=== PATIENT | female | born 1955 | race Caucasian/White ===

== ENCOUNTER 2019-02-26 01:22 | Emergency (ER) | payer BC, OTHER ==
[~2019-02-26] VITALS: Ht 157.5 cm; Wt 70.8 kg
--- OUTSIDE RECORDS SUMMARY | 2019-02-26 01:25 | XMS REPORT | Continuity of Care Document ---
Author Author [email or web address] Organization [email or web address] Address Unknown Phone Unavailable Care Team Providers Care Internet Researcher Name Role Phone [email or web address] Unavailable Unavailable Problems Problem Status Onset Date Classification Date Reported Comments Source Bronchitis, acute Resolved 08/09/2013 Problem 02/10/2019 2.16.840.1.929564.4.391.11.67020 Screening for breast cancer Resolved 08/09/2013 Problem 02/10/2019 2.16.840.1.824632.4.391.11.62315 Special screening for malignant neoplasms, colon Resolved 08/09/2013 Problem 02/10/2019 2.16.840.1.528439.4.391.11.58916 Laboratory examination Resolved 04/18/2011 Problem 02/10/2019 2.16.840.1.305308.4.391.11.05144 Other B-complex deficiencies Resolved 09/24/2010 Problem 02/10/2019 2.16.840.1.415813.4.391.11.04087 Anemia, iron deficiency Resolved 09/24/2010 Problem 02/10/2019 2.16.840.1.648978.4.391.11.47156 Hyperglycemia Resolved 08/30/2010 Problem 02/10/2019 2.16.840.1.117179.4.391.11.74589 Other thalassemia Resolved 08/30/2010 Problem 02/10/2019 2.16.840.1.452145.4.391.11.10554 Unspecified anemia Resolved 08/30/2010 Problem 02/10/2019 2.16.840.1.884896.4.391.11.24358 Unspecified vitamin D deficiency Resolved 08/30/2010 Problem 02/10/2019 2.16.840.1.909679.4.391.11.71874 Familial hyperlipoproteinemia, type I Resolved 08/16/2010 Problem 02/10/2019 2.16.840.1.805940.4.391.11.26701 Dysthymia Resolved 08/16/2010 Problem 02/10/2019 2.16.840.1.160928.4.391.11.19709 Sinus bradycardia Resolved 06/04/2010 Problem 02/10/2019 2.16.840.1.931207.4.391.11.64411 Other nonspecific abnormal serum enzyme levels Resolved 05/22/2010 Problem 02/10/2019 2.16.840.1.343389.4.391.11.07440 Methicillin resistant Staphylococcus aureus Resolved 05/17/2010 Problem 02/10/2019 2.16.840.1.050606.4.391.11.04148 Extrinsic asthma with status asthmaticus Resolved 05/17/2010 Problem 02/10/2019 2.16.840.1.011893.4.391.11.90661 Chronic pain syndrome Resolved 01/07/2010 Problem 02/10/2019 2.16.840.1.229749.4.391.11.12688 Apudoma of skin Resolved 01/02/2010 Problem 02/10/2019 2.16.840.1.776444.4.391.11.57770 Major depressive disorder, single episode, moderate Resolved 01/02/2010 Problem 02/10/2019 2.16.840.1.710477.4.391.11.63886 Extrinsic asthma, with exacerbation Resolved 12/05/2009 Problem 02/10/2019 2.16.840.1.324695.4.391.11.13505 Acute URI Resolved 12/05/2009 Problem 02/10/2019 2.16.840.1.330898.4.391.11.24424 Pneumonia due to Staphylococcus, unspecified Resolved 10/23/2009 Problem 02/10/2019 2.16.840.1.937620.4.391.11.60825 Other staphylococcus infection in conditions classified elsewhere and of unspecified site Resolved 10/23/2009 Problem 02/10/2019 2.16.840.1.771417.4.391.11.47924 Cellulitis of face Resolved 10/23/2009 Problem 02/10/2019 2.16.840.1.423047.4.391.11.17814 Dyschromia, unspecified Resolved 10/05/2009 Problem 02/10/2019 2.16.840.1.270429.4.391.11.03090 Annual Physical Resolved 10/05/2009 Problem 02/10/2019 2.16.840.1.689718.4.391.11.95668 Postmenopausal related mood disorder Resolved 10/05/2009 Problem 02/10/2019 2.16.840.1.275543.4.391.11.15726 Allergic rhinitis due to pollen Resolved 10/05/2009 Problem 02/10/2019 2.16.840.1.865365.4.391.11.43250 Otogenic pain Resolved 09/21/2009 Problem 02/10/2019 2.16.840.1.269408.4.391.11.02397 Otitis externa of right ear Resolved 09/21/2009 Problem 02/10/2019 2.16.840.1.370545.4.391.11.78338 Arthralgia of hip or thigh Resolved 02/21/2009 Problem 02/10/2019 2.16.840.1.365516.4.391.11.93680 Unspecified labyrinthitis Resolved 01/09/2009 Problem 02/10/2019 2.16.840.1.480926.4.391.11.57827 Light headedness Resolved 01/09/2009 Problem 02/10/2019 2.16.840.1.801918.4.391.11.89039 Eczema Resolved 12/18/2008 Problem 02/10/2019 2.16.840.1.905375.4.391.11.84003 Toe infection Resolved 12/18/2008 Problem 02/10/2019 2.16.840.1.393116.4.391.11.81809 Allergic reaction Resolved 11/22/2008 Problem 02/10/2019 2.16.840.1.335336.4.391.11.93162 Lumbar disc herniation with radiculopathy Resolved 11/16/2008 Problem 02/10/2019 2.16.840.1.661463.4.391.11.92987 Acquired hypothyroidism Resolved 06/22/2008 Problem 02/10/2019 2.16.840.1.145656.4.391.11.28553 Reflux esophagitis Resolved 02/17/2008 Problem 02/10/2019 2.16.840.1.300290.4.391.11.98787 Nonspecific findings on radiological and other examination of lung field Resolved 02/17/2008 Problem 02/10/2019 2.16.840.1.165003.4.391.11.80576 Elevated blood pressure reading without diagnosis of hypertension Resolved 01/19/2008 Problem 02/10/2019 2.16.840.1.639622.4.391.11.63927 Rhomboid muscle pain Resolved 01/19/2008 Problem 02/10/2019 2.16.840.1.757146.4.391.11.52816 Acute shoulder pain Resolved 01/19/2008 Problem 02/10/2019 2.16.840.1.381732.4.391.11.12149 Essential hypertension, benign Resolved 01/19/2008 Problem 02/10/2019 2.16.840.1.240466.4.391.11.33782 Rotator cuff sprain and strain Resolved 12/28/2007 Problem 02/10/2019 2.16.840.1.003980.4.391.11.23296 Lumbar pain Resolved 12/28/2007 Problem 02/10/2019 2.16.840.1.731314.4.391.11.09740 Anxiety as acute reaction to exceptional stress Resolved 08/30/2007 Problem 02/10/2019 2.16.840.1.053906.4.391.11.26126 Syncope and collapse Resolved 08/30/2007 Problem 02/10/2019 2.16.840.1.841636.4.391.11.48322 Swelling, mass, or lump in head and neck Resolved 08/24/2007 Problem 02/10/2019 2.16.840.1.498119.4.391.11.40905 Gastro-esophageal reflux Resolved 08/24/2007 Problem 02/10/2019 2.16.840.1.611867.4.391.11.94295 Enlargement of lymph nodes Resolved 06/17/2007 Problem 02/10/2019 2.16.840.1.051991.4.391.11.10744 Cervical dystonia Resolved 05/07/2007 Problem 02/10/2019 2.16.840.1.249044.4.391.11.03271 Acute maxillary sinusitis Resolved 05/03/2007 Problem 02/10/2019 2.16.840.1.055041.4.391.11.50971 Other specified acquired hypothyroidism Resolved 05/03/2007 Problem 02/10/2019 2.16.840.1.536783.4.391.11.31193 Acute frontal sinusitis Resolved 05/03/2007 Problem 02/10/2019 2.16.840.1.832449.4.391.11.82177 GERARDO Resolved 03/11/2007 Problem 02/10/2019 2.16.840.1.793116.4.391.11.33892 Cervical pain Resolved 03/11/2007 Problem 02/10/2019 2.16.840.1.091497.4.391.11.41909 Transient insomnia Resolved 03/11/2007 Problem 02/10/2019 2.16.840.1.719597.4.391.11.87087 Infective otitis externa Active Problem 02/10/2019 2.16.840.1.753925.4.391.11.42589 Dysfunction of Eustachian tube Active Problem 02/10/2019 2.16.840.1.145170.4.391.11.86001 Spasmodic torticollis Active Problem 02/10/2019 2.16.840.1.740390.4.391.11.02679 Contact blepharoconjunctivitis Active Problem 02/10/2019 2.16.840.1.428313.4.391.11.58160 Prolonged depressive reaction as adjustment reaction Active Problem 02/10/2019 2.16.840.1.049415.4.391.11.25643 Other anxiety states Active Problem 02/10/2019 2.16.840.1.435722.4.391.11.17197 Iron deficiency anemia Active Problem 02/10/2019 2.16.840.1.611513.4.391.11.19670 Neoplasm of uncertain behavior of skin Active Problem 02/10/2019 2.16.840.1.466119.4.391.11.58935 Vitamin D deficiency Active Problem 02/10/2019 2.16.840.1.317728.4.391.11.65205 B12 deficiency Active Problem 02/10/2019 2.16.840.1.905148.4.391.11.62781 Dizziness Active Problem 02/10/2019 2.16.840.1.755738.4.391.11.70824 Blackout Active Problem 02/10/2019 2.16.840.1.716688.4.391.11.55692 Pneumonia due to Staphylococcus Active Problem 02/10/2019 2.16.840.1.314549.4.391.11.63409 Anemia Active Problem 02/10/2019 2.16.840.1.349495.4.391.11.38231 Methicillin resistant Staphylococcus aureus infection Active Problem 02/10/2019 2.16.840.1.255115.4.391.11.72413 Mixed hyperlipidemia Active Problem 02/10/2019 2.16.840.1.525893.4.391.11.11319 Other specified cardiac dysrhythmias Active Problem 02/10/2019 2.16.840.1.994837.4.391.11.54306 Extrinsic asthma with exacerbation Active Problem 02/10/2019 2.16.840.1.883232.4.391.11.87026 Acute hip pain Active Problem 02/10/2019 2.16.840.1.267421.4.391.11.55940 Esophageal reflux Active Problem 02/10/2019 2.16.840.1.013071.4.391.11.85016 Dyschromia Active Problem 02/10/2019 2.16.840.1.177309.4.391.11.23749 Intrinsic asthma with status asthmaticus Active Problem 02/10/2019 2.16.840.1.191468.4.391.11.14632 Nonspecific abnormal serum enzyme levels Active Problem 02/10/2019 2.16.840.1.515836.4.391.11.03540 Abnormal blood chemistry Active Problem 02/10/2019 2.16.840.1.026595.4.391.11.13638 Strain of rotator cuff Active Problem 02/10/2019 2.16.840.1.921231.4.391.11.38054 Allergic state Active Problem 02/10/2019 2.16.840.1.768328.4.391.11.14854 Solitary pulmonary nodule Active Problem 02/10/2019 2.16.840.1.414746.4.391.11.30597 Elevated blood pressure reading Active Problem 02/10/2019 2.16.840.1.344923.4.391.11.92256 Nausea alone Active Problem 02/10/2019 2.16.840.1.080808.4.391.11.56225 Acute cystitis Active Problem 02/10/2019 2.16.840.1.148527.4.391.11.22237 Cough Active Problem 02/10/2019 2.16.840.1.190358.4.391.11.62291 Enlarged lymph nodes Active Problem 02/10/2019 2.16.840.1.635415.4.391.11.00163 Voice disturbance Active Problem 02/10/2019 2.16.840.1.468001.4.391.11.28638 Anxiety Active Diagnosis 02/10/2019 2.16.840.1.963851.4.391.11.42824 Heartburn Active Problem 02/10/2019 2.16.840.1.061103.4.391.11.96118 Dermatitis Active Problem 02/10/2019 2.16.840.1.956700.4.391.11.65943 Displacement of lumbar intervertebral disc Active Problem 02/10/2019 2.16.840.1.324659.4.391.11.53246 Spinal stenosis in cervical region Active Problem 02/10/2019 2.16.840.1.158658.4.391.11.52121 Cervicalgia Active Problem 02/10/2019 2.16.840.1.908789.4.391.11.97535 Headache Active Problem 02/10/2019 2.16.840.1.183088.4.391.11.73472 Earache, otogenic Active Problem 02/10/2019 2.16.840.1.279828.4.391.11.18501 Labyrinthitis Active Problem 02/10/2019 2.16.840.1.772289.4.391.11.96897 Other specified menopausal and postmenopausal disorder Active Problem 02/10/2019 2.16.840.1.297998.4.391.11.45245 Local infection of skin and subcutaneous tissue Active Problem 02/10/2019 2.16.840.1.469826.4.391.11.80470 Cellulitis and abscess of face Active Problem 02/10/2019 2.16.840.1.075236.4.391.11.90707 Myalgia and myositis Active Problem 02/10/2019 2.16.840.1.401532.4.391.11.43060 Hyperchylomicronemia Active Problem 02/10/2019 2.16.840.1.299989.4.391.11.90851 Anxiety and depression Active Problem 02/10/2019 2.16.840.1.078779.4.391.11.31524 Anxiety, generalized Active Problem 02/10/2019 2.16.840.1.476935.4.391.11.46060 Low back pain Active Problem 02/10/2019 2.16.840.1.418092.4.391.11.09197 Vitamin D deficiency Active Diagnosis 02/10/2019 2.16.840.1.480064.4.391.11.23378 Other chronic pain Active Problem 02/10/2019 2.16.840.1.099142.4.391.11.53791 Obesity Active Problem 02/10/2019 2.16.840.1.543037.4.391.11.61237 Mixed hyperlipidemia Active Problem 02/10/2019 2.16.840.1.841967.4.391.11.31764 Hypothyroidism Active Problem 02/10/2019 2.16.840.1.204407.4.391.11.55330 Fibromyalgia Active Problem 02/10/2019 2.16.840.1.983149.4.391.11.08483 Seasonal allergic rhinitis due to pollen Active Problem 02/10/2019 2.16.840.1.184728.4.391.11.84600 Chronic urticaria Active Diagnosis 05/23/2017 2.16.840.1.812318.4.391.11.66490 Hypothyroidism Active Diagnosis 02/10/2019 2.16.840.1.372900.4.391.11.93081 Sinus tachycardia Active Diagnosis 11/17/2018 2.16.840.1.518064.4.391.11.53492 Mild intermittent asthma without complication Active Diagnosis 11/17/2018 2.16.840.1.158834.4.391.11.11375 B12 deficiency Active Diagnosis 02/10/2019 2.16.840.1.970226.4.391.11.58849 Pedal edema Active Diagnosis 02/10/2019 2.16.840.1.697683.4.391.11.88653 Insomnia Active Diagnosis 02/10/2019 2.16.840.1.765497.4.391.11.24363 Depression Active Diagnosis 02/10/2019 2.16.840.1.399412.4.391.11.22719 Generalized pruritus Active Diagnosis 07/17/2018 2.16.840.1.730807.4.391.11.40658 Low back pain Active Diagnosis 02/10/2019 2.16.840.1.546622.4.391.11.04433 Seasonal allergies Active Diagnosis 02/10/2019 2.16.840.1.008425.4.391.11.61839 Pruritic rash Active Diagnosis 02/10/2019 2.16.840.1.397517.4.391.11.36168 Lumbar back pain with radiculopathy affecting left lower extremity Active Diagnosis 02/10/2019 2.16.840.1.819449.4.391.11.56736 Recurrent acute serous otitis media of left ear Active Diagnosis 07/17/2018 2.16.840.1.730196.4.391.11.55433 Cough Active Diagnosis 07/17/2018 2.16.840.1.121956.4.391.11.46217 Hyperglycemia Active Diagnosis 08/14/2016 2.16.840.1.976422.4.391.11.24884 Cervical stenosis of spine Active Diagnosis 08/14/2016 2.16.840.1.738191.4.391.11.63308 Lumbar stenosis Active Diagnosis 08/14/2016 2.16.840.1.483169.4.391.11.34510 Finger pain, right Active Diagnosis 08/07/2016 2.16.840.1.589911.4.391.11.95427 Medications Medication Details Route Status Patient Instructions Ordering Provider Order Date Source [place] 1 tablet as needed for pain Orally Active 10-325 MG Orally every 6 hrs(earliest fill 04-08-2019) [facility] 04/08/2019 2.16.840.1.956915.4.391.11.95948 [place] 1 tablet as needed for pain Orally Active 10-325 MG Orally every 6 hrs(earliest fill 03-08-2019) [facility] 03/08/2019 2.16.840.1.283515.4.391.11.86415 [place] 1 tablet as needed for pain Orally Active 10-325 MG Orally every 6 hrs [facility] 02/07/2019 2.16.840.1.444611.4.391.11.54831 Methocarbamol 1-2 tablets Orally Active 750 MG Orally tid [facility] 02/07/2019 2.16.840.1.025013.4.391.11.58431 [place] 1 tablet Orally Active 10-325 MG Orally every 6 hrs PRN Pain [facility] 11/12/2018 2.16.840.1.082041.4.391.11.59023 HydrOXYzine HCl 1-3 tablet(s) Orally Active 10 mg Orally three times a day (tid) PRN itching [facility] 11/12/2018 2.16.840.1.917150.4.391.11.07952 Methocarbamol 1-2 tablets Orally Active 750 MG Orally tid [facility] 10/18/2018 2.16.840.1.121279.4.391.11.41822 [place] 1 tablet as needed Orally Active 10-325 MG Orally every 6 hrs prn pain( earliest fill 10-07-2018) [facility] 10/07/2018 2.16.840.1.829149.4.391.11.56288 [place] 1 tablet as needed Orally Active 10-325 MG Orally every 6 hrs prn pain( earliest fill 09-09-2018) [facility] 09/09/2018 2.16.840.1.764104.4.391.11.39526 Lidoderm 1 patch to skin remove after 12 hours Externally Active 5 % Externally Once a day [facility] 08/11/2018 2.16.840.1.605193.4.391.11.56857 Medrol (Saurabh) as directed Orally Active 4 mg Orally [facility] 08/11/2018 2.16.840.1.659382.4.391.11.53268 [place] 1 tablet as needed Orally Active 10-325 MG Orally every 6 hrs prn pain [facility] 08/11/2018 2.16.840.1.609809.4.391.11.80004 Tussionex Pennkinetic ER 5 ml as needed Orally Active 10-8 MG/5ML Orally every 12 hrs [facility] 06/18/2018 2.16.840.1.342598.4.391.11.79761 Cefdinir 2 capsules Orally Active 300 MG Orally qd [facility] 06/18/2018 2.16.840.1.535533.4.391.11.92093 [place] 1 tablet as needed Orally Active 10-325 MG Orally every 6 hrs( earliest fill date 12-17-2017) [facility] 12/17/2017 2.16.840.1.756546.4.391.11.36370 [place] 1 tablet as needed Orally Active 10-325 MG Orally every 6 hrs( earliest fill date 11-17-2017) [facility] 11/17/2017 2.16.840.1.713159.4.391.11.05429 [place] 1 tablet as needed Orally Active 10-325 MG Orally every 6 hrs [facility] 10/19/2017 2.16.840.1.582853.4.391.11.66118 Atenolol 1 tablet Orally Active 25 MG Orally twice a day (bid) [facility] 10/19/2017 2.16.840.1.787245.4.391.11.66330 Lorazepam 1 tablet Orally Active 1 MG Orally three times a day (tid) [facility] 10/19/2017 2.16.840.1.604536.4.391.11.20606 [place] 1 tablet as needed Orally Active 10-325 MG Orally every 6 hrs( earliest fill date 09-20-2017) [facility] 09/20/2017 2.16.840.1.268055.4.391.11.02132 [place] 1 tablet as needed Orally Active 10-325 MG Orally every 6 hrs( earliest fill date 08-20-2017) [facility] 08/20/2017 2.16.840.1.038780.4.391.11.44765 [place] 1 tablet as needed Orally Active 10-325 MG Orally every 6 hrs [facility] 07/22/2017 2.16.840.1.588001.4.391.11.47770 Clonazepam 1/2 - 1 tablet Orally Active 1 MG Orally three times a day (tid) as needed (prn) [facility] 07/22/2017 2.16.840.1.830966.4.391.11.95117 [place] 1 tablet as needed Orally Active 10-325 MG Orally every 6 hrs [facility] 06/13/2017 2.16.840.1.793317.4.391.11.62883 [place] 1 tablet as needed Orally Active 10-325 MG Orally every 6 hrs [facility] 05/13/2017 2.16.840.1.404265.4.391.11.79157 METHYLCOBALAMIN (B12) 1mL IM Active 1,000mcg/mL IM qweekly [facility] 04/22/2017 2.16.840.1.997777.4.391.11.93160 25G 1" Needle as directed NA Active [facility] 04/22/2017 2.16.840.1.193402.4.391.11.28549 3mL Luer-Lock Syringe as directed NA Active [facility] 04/22/2017 2.16.840.1.379193.4.391.11.33972 Vitamin D (Ergocalciferol) 1 capsule Orally Active 11319 UNIT Orally twice per week [facility] 04/15/2017 2.16.840.1.090388.4.391.11.47605 [place] Thyroid 1 tablet Orally Active 120 MG Orally Once a day [facility] 04/15/2017 2.16.840.1.633742.4.391.11.80598 Vitamin D2 1 capsule by mouth once a week by mouth Active 50,000 by mouth once a week [facility] 04/15/2017 2.16.840.1.123335.4.391.11.04548 [place] 1 tablet as needed Orally Active 10-325 MG Orally every 6 hrs [facility] 04/15/2017 2.16.840.1.332492.4.391.11.87933 [place] Thyroid 1 tablet Orally Active 90 MG Orally Once a day [facility] 01/09/2017 2.16.840.1.282689.4.391.11.00614 [place] Thyroid 1 tablet Orally Active 90 MG Orally Once a day [facility] 01/09/2017 2.16.840.1.177239.4.391.11.27632 Furosemide 1 tablet Orally Active 20 MG Orally qam prn severe pedal edema [facility] 01/09/2017 2.16.840.1.959597.4.391.11.18341 Ambien CR 1 tablet at bedtime as needed Orally Active 12.5 MG Orally Once a day [facility] 01/09/2017 2.16.840.1.542139.4.391.11.23993 Xyzal 1 tablet in the evening Orally Active 5 MG Orally Once a day [facility] 09/26/2016 2.16.840.1.532766.4.391.11.79077 Micro-K 1 capsule Orally Active 10 MEQ Orally once a day [facility] 09/09/2016 2.16.840.1.893320.4.391.11.55074 [place] Thyroid 1 tablet Orally Active 90 MG Orally Once a day [facility] 08/13/2016 2.16.840.1.755011.4.391.11.70468 BuPROPion HCl (XL) 1 tablet in the morning Orally Active 150 MG Orally Once a day x 4 days [facility] 06/11/2016 2.16.840.1.237447.4.391.11.57771 BuPROPion HCl (XL) 1 tablet in the morning Orally Active 300 MG Orally Once a day [facility] 06/11/2016 2.16.840.1.523798.4.391.11.40693 HydrOXYzine HCl 1-3 tablets tid prn itching Orally Active 10 MG Orally as directed [facility] 06/11/2016 2.16.840.1.743355.4.391.11.64741 ProAir HFA 1-2 puffs as needed Inhalation Active 108 (90 Base) MCG/ACT Inhalation every 4 hrs [facility] 06/11/2016 2.16.840.1.584441.4.391.11.58824 Citalopram Hydrobromide 1 tablet Orally Active 20 MG Orally Once a day [facility] 06/11/2016 2.16.840.1.420120.4.391.11.72656 Albuterol Sulfate 3 ml Inhalation Active (2.5 MG/3ML) 0.083% Inhalation Three times a day prn [facility] 06/11/2016 2.16.840.1.807375.4.391.11.87356 Xyzal 1 tablet in the evening Orally Active 5 MG Orally Once a day [facility] 03/12/2016 2.16.840.1.918486.4.391.11.66548 Singulair 1 tablet in the evening Orally Active 10 mg Orally Once a day [facility] 12/07/2015 2.16.840.1.150272.4.391.11.56514 Soma 1 tablet by mouth Active 350 MG by mouth TID [facility] 11/22/2015 2.16.840.1.360184.4.391.11.31616 Vitamin D2 1 capsule by mouth once a week by mouth Active 50,000 by mouth once a week [facility] 11/22/2015 2.16.840.1.593657.4.391.11.46093 [place] 1 tablet by mouth Active 10-325 MG by mouth every 6 hrs prn [facility] 11/22/2015 2.16.840.1.170796.4.391.11.62896 Tramadol HCl 1 tablet Orally Active 50 mg Orally every 6 hrs prn pain [facility] 11/22/2015 2.16.840.1.973354.4.391.11.99492 BusPIRone HCl 1/2 half tablet Orally Active 15 MG Orally Twice a day for 1 week and the 1 tablet twice a day [facility] 08/24/2015 2.16.840.1.799895.4.391.11.99782 HydrOXYzine HCl 1 tablet Orally Active 10 mg Orally three times a day (tid) prn itching [facility] 06/01/2015 2.16.840.1.439710.4.391.11.57258 [place] Thyroid 1 tablet on an empty stomach Orally No Longer Active 15 MG Orally Once a day [facility] 05/30/2015 2.16.840.1.789746.4.391.11.32846 Hydrochlorothiazide 1 tablet Orally Active 25 MG Orally Once a day in the morning [facility] 05/18/2015 2.16.840.1.893768.4.391.11.42328 Vitamin B12 Unknown NA Inactive 1,000mcg/1ml Injection [facility] 10/07/2013 2.16.840.1.275771.4.391.11.97694 Syringe IM injection of Vit B12, once per week NA Active 3cc syringe with 23g needle, 1" [facility] 07/16/2012 2.16.840.1.036064.4.391.11.17990 [place] Take 1 tablet(s) by mouth q6h prn NA Active 10mg/325mg Tablet [facility] Antonia Da Silva 05/03/2009 2.16.840.1.008933.4.391.11.65184 Soma Take 1 tablet(s) by mouth tid NA Active 350mg Tablet Maria Antonia Da Silva 04/06/2009 2.16.840.1.594280.4.391.11.73662 Ativan 1/2 to 1 tablet by mouth Active 1 MG by mouth three times a day (tid) as needed (prn) [facility] 2.16.840.1.563444.4.391.11.41216 Citalopram Hydrobromide 1 tablet Orally Active 20 MG Orally Once a day [facility] 2.16.840.1.900871.4.391.11.62324 Tramadol HCl 1 tablet Orally Active 50 mg Orally every 6 hrs prn pain [facility] [id number] [place]wick 1 tablet by mouth Active 10-325 MG by mouth every 6 hrs prn [facility] [id number] Albuterol Sulfate 3 ml Inhalation Active (2.5 MG/3ML) 0.083% Inhalation Three times a day prn [facility] [id number] Micro-K 1 capsule Orally Active 10 MEQ Orally once a day [facility] [id number] Hydrochlorothiazide 1 tablet Orally Active 25 MG Orally Once a day in the morning [facility] [id number] Singulair 1 tablet in the evening Orally Active 10 mg Orally Once a day [facility] [id number] Soma Take 1 tablet(s) by mouth tid NA Active 350mg Tablet [facility] [id number] Vitamin D2 1 capsule by mouth once a week by mouth Active 50,000 by mouth once a week [facility] [id number] ProAir HFA 1-2 puffs as needed Inhalation Active 108 (90 Base) MCG/ACT Inhalation every 4 hrs [facility] [id number] Syringe IM injection of Vit B12, once per week NA Active 3cc syringe with 23g needle, 1 [facility] [place] [id number] Cyanocobalamin 1 ml intramuscularly Active 1000 MCG/ML intramuscularly once a week as directed [place] [id number] Simvastatin 1 tablet by mouth Active 20 mg by mouth at bedtime [address]1.665931.4.391.11.93025 BuPROPion HCl (XL) 1 tablet in the morning Orally Active 300 MG Orally Once a day [place] 21642.840.1.488894.4.391.11.68289 Ambien CR 1 tablet at bedtime as needed Orally Active 6.25 MG Orally Once a day [place] 21642.840.1.188633.4.391.11.68950 HydrOXYzine HCl 1-3 tablets tid prn itching Orally Active 10 MG Orally as directed [place] [address].840.1.891834.4.391.11.66698 Atenolol 1 tablet by mouth Active 50 mg by mouth qam and 1/2 po qpm [address]1.558210.4.391.11.12934 Amitriptyline HCl 1 to 2 tablet(s) by mouth Active 25 MG by mouth at bedtime [address]16840.1.998310.4.391.11.81280 Furosemide 1 tablet Orally Active 20 MG Orally qam prn severe pedal edema [address]16840.1.843909.4.391.11.71989 Micro-K 1 capsule Orally Active 10 MEQ Orally once a day [place] 87984.1.827377.4.391.11.37050 [place] Thyroid 1 tablet Orally Active 90 MG Orally Once a day [facility] 2.16840.1.228497.4.391.11.34368 Cyanocobalamin 1 ml intramuscularly Active 1000 MCG/ML intramuscularly once a week as directed [facility] 2.16840.1.270631.4.391.11.93305 Albuterol Sulfate 3 ml Inhalation Active (2.5 MG/3ML) 0.083% Inhalation Three times a day prn [facility] 2.16840.1.247799.4.391.11.43284 BuPROPion HCl (XL) 1 tablet in the morning Orally Active 300 MG Orally Once a day [facility] 2.16840.1.220957.4.391.11.71921 Ambien CR 1 tablet at bedtime as needed Orally Active 12.5 MG Orally Once a day [facility] 2.16840.1.382850.4.391.11.61059 HydrOXYzine HCl 1-3 tablets tid prn itching Orally Active 10 mg Orally as directed [facility] 2.16840.1.190458.4.391.11.25569 Citalopram Hydrobromide 1 tablet Orally Active 20 MG Orally Once a day [facility] 2.16840.1.966685.4.391.11.81041 ProAir HFA 1-2 puffs as needed Inhalation Active 108 (90 Base) MCG/ACT Inhalation every 4 hrs [facility] 2.16840.1.505752.4.391.11.38051 Atenolol 1 tablet by mouth Active 50 mg by mouth qam and 1/2 po qpm [facility] 2.16840.1.552068.4.391.11.85622 Tramadol HCl 1 tablet Orally Active 50 mg Orally every 6 hrs prn pain [facility] 2.16840.1.960404.4.391.11.77892 Ativan 1/2 to 1 tablet by mouth Active 1 MG by mouth three times a day (tid) as needed (prn) [facility] 2.16.840.1.876158.4.391.11.77870 Hydrochlorothiazide 1 tablet Orally Active 25 MG Orally Once a day in the morning [facility] 2.16.840.1.226920.4.391.11.21304 [place] 1 tablet by mouth Active 10-325 MG by mouth every 6 hrs prn [facility] 2.16.840.1.638234.4.391.11.23663 Singulair 1 tablet in the evening Orally Active 10 mg Orally Once a day [facility] 2.16.840.1.519721.4.391.11.72631 Amitriptyline HCl 1 to 2 tablet(s) by mouth Active 25 MG by mouth at bedtime [facility] 2.16.840.1.639099.4.391.11.20092 Simvastatin 1 tablet by mouth Active 20 mg by mouth at bedtime [facility] 2.16.840.1.452071.4.391.11.54622 [place] Thyroid 1 tablet Orally Active 90 MG Orally Once a day [facility] 2.16.840.1.197943.4.391.11.91190 3mL Luer-Lock Syringe as directed NA Active [facility] 2.16840.1.130452.4.391.11.78568 Clonazepam 1 tablet Orally Active 1 MG Orally three times a day (tid) as needed (prn) [facility] 2.16.840.1.924332.4.391.11.22995 METHYLCOBALAMIN (B12) 1mL IM Active 1,000mcg/mL IM qweekly [facility] 2.16.840.1.251235.4.391.11.45955 25G 1" Needle as directed NA Active [facility] 2.16.840.1.860933.4.391.11.35751 Citalopram Hydrobromide 1 tablet Orally Active 40 MG Orally Once a day [facility] 2.16840.1.900699.4.391.11.66113 Vitamin D (Ergocalciferol) 1 capsule Orally Active 85699 UNIT Orally twice per week [facility] 2.16840.1.102541.4.391.11.63086 [place] Thyroid 1 tablet Orally Active 120 MG Orally Once a day [facility] 2.16840.1.642489.4.391.11.52988 Medrol (Saurabh) as directed Orally Active 4 mg Orally [facility] [place] 2.16840.1.850589.4.391.1116506 Atenolol 1 tablet Orally Active 25 MG Orally twice a day (bid) [facility] 2.16840.1.294190.4.391.11.71956 Lorazepam 1 tablet Orally Active 1 MG Orally three times a day (tid) [facility] 2.16840.1.171023.4.391.11.77641 ProAir HFA 1 - 2 puffs Inhalation Active 108 (90 Base) MCG/ACT Inhalation q 4-6 hr prn wheezing/SOB/cough [facility] 2.16840.1.827565.4.391.11.70912 Citalopram Hydrobromide 1 tablet by mouth No Longer Active 40 mg by mouth daily [facility] 2.16840.1.160949.4.391.11.30881 Albuterol Sulfate 1 vial(s) Inhalation Active (2.5 MG/3ML) 0.083% Inhalation by nebulizer qid as directed [facility] 2.16840.1.329254.4.391.11.15523 BusPIRone HCl 1/2 half tablet Orally No Longer Active 15 MG Orally Twice a day for 1 week and the 1 tablet twice a day [facility] 2.16.840.1.212041.4.391.1107524 [place] Thyroid 1 tablet Orally No Longer Active 60 MG Orally Once a day [facility] 2.16840.1.752188.4.391.11.42100 Soma Take 1 tablet(s) by mouth tid NA Active 350mg Tablet [facility] 2.16840.1.397541.4.391.11.08128 Allergies, Adverse Reactions, Alerts Substance Category Reaction Severity Reaction type Status Date Reported Comments Source Ibuprofen Adverse Reaction Info Not Available Adverse Reaction Active 02/07/2019 2.16.840.1.888089.4.391.11.48251 Diflunisal Adverse Reaction Info Not Available Adverse Reaction Active 02/07/2019 2.16.840.1.330895.4.391.11.25057 Bystolic Adverse Reaction Info Not Available Adverse Reaction Active 02/07/2019 2.16.840.1.587146.4.391.11.95299 Immunizations Immunization Date Given Site Status Last Updated Comments Source FLUVIRIN - Influenza (split) 06/11/2016 completed 2.16.840.1.598405.4.391.11.69880 Triamcinolone 06/11/2016 completed 2.16.840.1.913612.4.391.11.39035 Inj. Dexamethasone Sod Phos 1mg 03/12/2016 completed 2.16.840.1.357781.4.391.11.35930 Inj. Dexamethasone Sod Phos 1mg 12/07/2015 completed 2.16.840.1.151324.4.391.11.35328 Results No Data Provided for This Section Pathology Reports No Data Provided for This Section Diagnostic Reports No Data Provided for This Section Consultation Notes No Data Provided for This Section Discharge Summaries No Data Provided for This Section History and Physicals No Data Provided for This Section Vital Signs Vital Sign Value Date Comments Source Weight 162 02/07/2019 2.16.840.1.893785.4.391.11.10072 Height 63 02/07/2019 2.16.840.1.221559.4.391.11.43348 Temperature Oral (F) 97.9 F 02/07/2019 2.16.840.1.760219.4.391.11.94532 Heart Rate 124 02/07/2019 2.16.840.1.858646.4.391.11.52089 Weight 159.4 11/12/2018 2.16.840.1.582049.4.391.11.35150 Height 63 11/12/2018 2.16.840.1.752225.4.391.11.37367 Temperature Oral (F) 96.8 F 11/12/2018 2.16.840.1.254119.4.391.11.04154 Heart Rate 118 11/12/2018 2.16.840.1.844332.4.391.11.71007 Weight 155 08/11/2018 2.16.840.1.024263.4.391.11.45627 Height 63 08/11/2018 2.16.840.1.243480.4.391.11.44259 Temperature Oral (F) 98.5 F 08/11/2018 2.16.840.1.422726.4.391.11.12160 Heart Rate 113 08/11/2018 2.16.840.1.660376.4.391.11.25012 Weight 152 06/18/2018 2.16.840.1.259974.4.391.11.03166 Height 63 06/18/2018 2.16.840.1.468334.4.391.11.52298 Temperature Oral (F) 97.9 F 06/18/2018 2.16.840.1.900418.4.391.11.48727 Heart Rate 102 06/18/2018 2.16.840.1.786200.4.391.11.59569 Weight 146.8 05/05/2018 2.16.840.1.416260.4.391.11.49728 Height 63 05/05/2018 2.16.840.1.430315.4.391.11.43658 Temperature Oral (F) 97.0 F 05/05/2018 2.16.840.1.224179.4.391.11.10396 Heart Rate 84 05/05/2018 2.16.840.1.723145.4.391.11.30786 Weight 145 01/29/2018 2.16.840.1.256172.4.391.11.03554 Height 63 01/29/2018 2.16.840.1.648433.4.391.11.72666 Temperature Oral (F) 99.1 F 01/29/2018 2.16.840.1.597004.4.391.11.93460 Heart Rate 80 01/29/2018 2.16.840.1.185502.4.391.11.12034 Weight 140 12/30/2017 2.16.840.1.562863.4.391.11.08977 Height 63 12/30/2017 2.16.840.1.326564.4.391.11.21776 Temperature Oral (F) 98.4 F 12/30/2017 2.16.840.1.804934.4.391.11.49309 Heart Rate 83 12/30/2017 2.16.840.1.239549.4.391.11.26707 Weight 149 10/19/2017 2.16.840.1.033654.4.391.11.09965 Height 63 10/19/2017 2.16.840.1.215201.4.391.11.47033 Temperature Oral (F) 97.8 F 10/19/2017 2.16.840.1.561299.4.391.11.55734 Heart Rate 68 10/19/2017 2.16.840.1.195431.4.391.11.04440 Weight 159 07/22/2017 2.16.840.1.502191.4.391.11.94546 Height 63 07/22/2017 2.16.840.1.415962.4.391.11.23791 Temperature Oral (F) 98.5 F 07/22/2017 2.16.840.1.604703.4.391.11.28765 Heart Rate 80 07/22/2017 2.16.840.1.590084.4.391.11.58093 Weight 180 04/15/2017 2.16.840.1.316764.4.391.11.33059 Height 63 04/15/2017 2.16.840.1.376756.4.391.11.59294 Temperature Oral (F) 97.5 F 04/15/2017 2.16.840.1.704784.4.391.11.63609 Heart Rate 84 04/15/2017 2.16.840.1.393474.4.391.11.18100 Weight 200 01/09/2017 2.16.840.1.942116.4.391.11.61533 Height 63 01/09/2017 2.16.840.1.251999.4.391.11.66602 Temperature Oral (F) 97.5 F 01/09/2017 2.16.840.1.232299.4.391.11.73803 Heart Rate 75 01/09/2017 2.16.840.1.448823.4.391.11.68927 Weight 202 09/26/2016 2.16.840.1.367342.4.391.11.75426 Height 63 09/26/2016 2.16.840.1.145341.4.391.11.15028 Temperature Oral (F) 97.5 F 09/26/2016 2.16.840.1.602627.4.391.11.97379 Heart Rate 72 09/26/2016 2.16.840.1.559178.4.391.11.33774 Weight 199 06/11/2016 2.16.840.1.916527.4.391.11.64420 Height 63 06/11/2016 2.16.840.1.598197.4.391.11.45439 Temperature Oral (F) 99.3 F 06/11/2016 2.16.840.1.312071.4.391.11.18028 Heart Rate 79 06/11/2016 2.16.840.1.277471.4.391.11.57157 Weight 197 03/12/2016 2.16.840.1.027132.4.391.11.20458 Height 63 03/12/2016 2.16.840.1.297205.4.391.11.75288 Temperature Oral (F) 98.0 F 03/12/2016 2.16.840.1.347410.4.391.11.96458 Heart Rate 79 03/12/2016 2.16.840.1.469651.4.391.11.16543 Weight 198 12/07/2015 2.16.840.1.864267.4.391.11.35820 Height 63 12/07/2015 2.16.840.1.254049.4.391.11.99573 Temperature Oral (F) 98.0 F 12/07/2015 2.16.840.1.496825.4.391.11.11956 Heart Rate 80 12/07/2015 2.16.840.1.707777.4.391.11.77316 Encounters Location Location Details Encounter Type Encounter Number Reason For Visit Attending Provider ADM Date DC Date Status Source Juventino Be MD [facility] Medication Refil [id number] 12/07/2015 12/07/2015 2.16.840.1.385602.4.391.11.20929 Juventino Be MD [facility] Medication Refil [id number] 12/07/2015 12/07/2015 2.16.840.1.984905.4.391.11.63121 Juventino Be MD [facility] Medication Refil [id number] 12/07/2015 12/07/2015 2.16.840.1.098419.4.391.11.66551 Juventino Be MD [facility] Medication Refil [id number] 12/07/2015 12/07/2015 2.16.840.1.712707.4.391.11.65732 Juventino Be MD [facility] Medication Refil [id number] 12/07/2015 12/07/2015 2.16.840.1.511287.4.391.11.03636 Juventino Be MD [facility] Medication Refil [id number] 12/07/2015 12/07/2015 2.16.840.1.803284.4.391.11.37565 Juventino Be MD [facility] Medication Refil [id number] 12/07/2015 12/07/2015 2.16.840.1.626297.4.391.11.51127 Juventino Be MD [facility] Medication Refil [id number] 12/07/2015 12/07/2015 2.16.840.1.144361.4.391.11.16146 Juventino Be MD [facility] Medication Refil [id number] 12/07/2015 12/07/2015 2.16.840.1.047046.4.391.11.90321 Juventino Be MD [facility] Medication Refil [id number] 12/07/2015 12/07/2015 2.16.840.1.138852.4.391.11.53333 Juventino Be MD [facility] Soma prescription [id number] 12/10/2015 12/10/2015 2.16.840.1.972810.4.391.11.64440 Juventino Be MD [facility] [place] prescription [id number] 12/10/2015 12/10/2015 2.16.840.1.891354.4.391.11.03566 Juventino Be MD [facility] [place] prescription [id number] 12/10/2015 12/10/2015 2.16.840.1.708466.4.391.11.79044 Juventino Be MD [facility] [place] prescription [id number] 12/10/2015 12/10/2015 2.16.840.1.740296.4.391.11.49894 Juventino Be MD [facility] [place] prescription [id number] 12/10/2015 12/10/2015 2.16.840.1.496450.4.391.11.53130 Juventino Be MD [facility] [place] prescription [id number] 12/10/2015 12/10/2015 2.16.840.1.543167.4.391.11.64419 Juventino Be MD [facility] [place] prescription [id number] 12/10/2015 12/10/2015 2.16.840.1.541150.4.391.11.29484 Juventino Be MD [facility] [place] prescription [id number] 12/10/2015 12/10/2015 2.16.840.1.057163.4.391.11.43400 Juventino Be MD [facility] [place] prescription [id number] 12/10/2015 12/10/2015 2.16.840.1.873367.4.391.11.76372 Juventino Be MD [facility] [place] prescription [id number] 12/10/2015 12/10/2015 2.16.840.1.455601.4.391.11.05190 Juventino Be MD [facility] [place] prescription [id number] 12/10/2015 12/10/2015 2.16.840.1.419378.4.391.11.53487 Juventino Be MD [facility] [place] prescription [id number] 12/10/2015 12/10/2015 2.16.840.1.619339.4.391.11.09855 Juventino Be MD [facility] [place] prescription [id number] 12/10/2015 12/10/2015 2.16.840.1.691115.4.391.11.68048 Juventino Be MD [facility] Clinical Advice During Business Hours [id number] 01/08/2016 01/08/2016 2.16.840.1.451993.4.391.11.24985 Juventino Be MD [facility] Clinical Advice During Business Hours [id number] 01/08/2016 01/08/2016 2.16.840.1.671320.4.391.11.00080 Juventino Be MD [facility] Clinical Advice During Business Hours [id number] 01/08/2016 01/08/2016 2.16.840.1.397174.4.391.11.60931 Juventino Be MD [facility] Clinical Advice During Business Hours [id number] 01/08/2016 01/08/2016 2.16.840.1.929519.4.391.11.99598 Juventino Be MD [facility] Clinical Advice During Business Hours [id number] 01/08/2016 01/08/2016 2.16.840.1.247341.4.391.11.84766 Juventino Be MD [facility] Clinical Advice During Business Hours [id number] 01/08/2016 01/08/2016 2.16.840.1.852127.4.391.11.77994 Juventino Be MD [facility] Clinical Advice During Business Hours [id number] 01/08/2016 01/08/2016 2.16.840.1.787006.4.391.11.15400 Juventino Be MD [facility] Clinical Advice During Business Hours [id number] 01/08/2016 01/08/2016 2.16.840.1.986740.4.391.11.51536 Juventino Be MD [facility] Clinical Advice During Business Hours [id number] 01/08/2016 01/08/2016 2.16.840.1.913309.4.391.11.55218 Juventino Be MD [facility] Clinical Advice During Business Hours [id number] 01/08/2016 01/08/2016 2.16.840.1.230013.4.391.11.57211 Juventino Be MD [facility] Clinical Advice During Business Hours [id number] 01/08/2016 01/08/2016 2.16.840.1.083617.4.391.11.93971 Juventino Be MD [facility] Clinical Advice During Business Hours [id number] 01/08/2016 01/08/2016 2.16.840.1.161406.4.391.11.49328 Juventino Be MD [facility] Medicine Refills [id number] 02/07/2016 02/07/2016 2.16.840.1.113114.4.391.11.28633 Juventino Be MD [facility] Medicine Refills [id number] 02/07/2016 02/07/2016 2.16.840.1.721052.4.391.11.80465 Juventino Be MD [facility] Medicine Refills [id number] 02/07/2016 02/07/2016 2.16.840.1.680541.4.391.11.64317 Juventino Be MD [facility] Medicine Refills [id number] 02/07/2016 02/07/2016 2.16.840.1.478372.4.391.11.49325 Juventino Be MD [facility] Medicine Refills [id number] 02/07/2016 02/07/2016 2.16.840.1.104313.4.391.11.46357 Juventino Be MD [facility] Medicine Refills [id number] 02/07/2016 02/07/2016 2.16.840.1.792469.4.391.11.72080 Juventino Be MD [facility] Medicine Refills [id number] 02/07/2016 02/07/2016 2.16.840.1.563265.4.391.11.79442 Juventino Be MD [facility] Medicine Refills [id number] 02/07/2016 02/07/2016 2.16.840.1.879834.4.391.11.87178 Juventino Be MD [facility] Medicine Refills [id number] 02/07/2016 02/07/2016 2.16.840.1.956562.4.391.11.94918 Juventino Be MD [facility] Medicine Refills [id number] 02/07/2016 02/07/2016 2.16.840.1.926729.4.391.11.35821 Juventino Be MD [facility] Medicine Refills [id number] 02/07/2016 02/07/2016 2.16.840.1.031753.4.391.11.31776 Juventino Be MD [facility] Medication Refil [id number] 03/12/2016 03/12/2016 2.16.840.1.053843.4.391.11.28977 Juventino Be MD [facility] Medication Refil [id number] 03/12/2016 03/12/2016 2.16.840.1.190394.4.391.11.23992 Juventino Be MD [facility] Medication Refil [id number] 03/12/2016 03/12/2016 2.16.840.1.003978.4.391.11.46830 Juventino Be MD [facility] Medication Refil [id number] 03/12/2016 03/12/2016 2.16.840.1.458219.4.391.11.37070 Juventino Be MD [facility] Medication Refil [id number] 03/12/2016 03/12/2016 2.16.840.1.472003.4.391.11.83666 Juventino Be MD [facility] Medication Refil [id number] 03/12/2016 03/12/2016 2.16.840.1.527582.4.391.11.13513 Juventino Be MD [facility] Medication Refil [id number] 03/12/2016 03/12/2016 2.16.840.1.606074.4.391.11.19316 Juventino Be MD [facility] Medicine Refills [id number] 04/11/2016 04/11/2016 2.16.840.1.443273.4.391.11.59604 Juventino Be MD [facility] Medicine Refills [id number] 04/11/2016 04/11/2016 2.16.840.1.809229.4.391.11.30191 Juventino Be MD [facility] Medicine Refills [id number] 04/11/2016 04/11/2016 2.16.840.1.140558.4.391.11.72015 Juventino Be MD [facility] Medicine Refills [id number] 04/11/2016 04/11/2016 2.16.840.1.887912.4.391.11.64134 Juventino Be MD [facility] Medicine Refills [id number] 04/11/2016 04/11/2016 2.16.840.1.547233.4.391.11.33119 Juventino Be MD [facility] Medicine Refills [id number] 04/11/2016 04/11/2016 2.16.840.1.639892.4.391.11.43050 Juventino Be MD [facility] Medicine Refills [id number] 04/11/2016 04/11/2016 2.16.840.1.559089.4.391.11.69544 Juventino Be MD [facility] Medicine Refills [id number] 04/11/2016 04/11/2016 2.16.840.1.179132.4.391.11.50013 Juventino Be MD [facility] Medicine Refills [id number] 04/11/2016 04/11/2016 2.16.840.1.781147.4.391.11.46593 Juventino Be MD [facility] Medicine Refills [id number] 05/09/2016 05/09/2016 2.16.840.1.080577.4.391.11.63044 Juventino Be MD [facility] Medicine Refills [id number] 05/09/2016 05/09/2016 2.16.840.1.882363.4.391.11.27606 Juventino Be MD [facility] Medicine Refills [id number] 05/09/2016 05/09/2016 2.16.840.1.482004.4.391.11.76846 Juventino Be MD [facility] Medicine Refills [id number] 05/09/2016 05/09/2016 2.16.840.1.965825.4.391.11.70758 Juventino Be MD [facility] Medicine Refills [id number] 05/09/2016 05/09/2016 2.16.840.1.224263.4.391.11.40170 Juventino Be MD [facility] Medicine Refills [id number] 05/09/2016 05/09/2016 2.16.840.1.477001.4.391.11.93477 Juventino Be MD [facility] Medicine Refills [id number]-[id number] 05/09/2016 05/09/2016 2.16.840.1.712283.4.391.11.86985 Juventino Be MD [facility] Medicine Refills [id number] 05/09/2016 05/09/2016 2.16.840.1.854602.4.391.11.83604 Juventino Be MD [facility] Medication Refil [id number] 06/11/2016 06/11/2016 2.16.840.1.260387.4.391.11.09269 Juventino Be MD [facility] Medication Refil [id number] 06/11/2016 06/11/2016 2.16.840.1.508361.4.391.11.16592 Juventino Be MD [facility] Medication Refil [id number] 06/11/2016 06/11/2016 2.16.840.1.439294.4.391.11.40895 Juventino Be MD [facility] Medication Refil [id number] 06/11/2016 06/11/2016 2.16.840.1.184038.4.391.11.12968 Juventino Be MD [facility] Medication Refil [id number] 06/11/2016 06/11/2016 2.16.840.1.692323.4.391.11.62847 Juventino Be MD [facility] Medicine Refills [id number]-a3c2405m327g 07/10/2016 07/10/2016 2.16.840.1.198100.4.391.11.37489 Juventino Be MD [facility] Medicine Refills [id number]-[id number] 07/10/2016 07/10/2016 2.16.840.1.482042.4.391.11.59430 Juventino Be MD [facility] Medicine Refills [id number] 07/10/2016 07/10/2016 2.16.840.1.128201.4.391.11.06238 Juventino Be MD [facility] Medicine Refills [id number] 07/10/2016 07/10/2016 2.16.840.1.114977.4.391.11.14492 Juventino Be MD [facility] Medicine Refills [id number]-[id number] 07/10/2016 07/10/2016 2.16.840.1.626762.4.391.11.70622 Juventino Be MD [facility] Medicine Refills [id number] 07/10/2016 07/10/2016 2.16.840.1.748553.4.391.11.83178 Juventino Be MD [facility] Medicine Refills [id number]-[id number] 08/11/2016 08/11/2016 2.16.840.1.224367.4.391.11.02954 Juventino Be MD [facility] Medicine Refills [id number]-02ebc713e1ye 08/11/2016 08/11/2016 2.16.840.1.998323.4.391.11.48334 Juventino Be MD [facility] Medicine Refills [id number] 08/11/2016 08/11/2016 2.16.840.1.788539.4.391.11.34622 Juventino Be MD [facility] Medicine Refills [id number]-[id number]-460b-[id number] 08/11/2016 08/11/2016 2.16.840.1.706980.4.391.11.17825 Juventino Be MD [facility] Medicine Refills [id number] 08/11/2016 08/11/2016 2.16.840.1.210448.4.391.11.92043 Juventino Be MD [facility] Medicine Refills [id number]-[id number]-ubv7dt7024s5 08/11/2016 08/11/2016 2.16.840.1.769499.4.391.11.24798 Juventino Be MD [facility] Medicine Refills [id number] 08/11/2016 08/11/2016 2.16.840.1.582743.4.391.11.92257 Juventino Be MD [facility] Re:RE:Medicine Refills [id number]-27k2v68zx3b5 08/12/2016 08/12/2016 2.16.840.1.528146.4.391.11.46420 Juventino Be MD [facility] Re:RE:Medicine Refills [id number]-p46c-7bay92k61nff 08/12/2016 08/12/2016 2.16.840.1.018119.4.391.11.24689 Juventino Be MD [facility] Re:RE:Medicine Refills [id number]-[id number] 08/12/2016 08/12/2016 2.16.840.1.740432.4.391..22402 Juventino Be MD [facility] Unknown [id number] 08/13/2016 08/13/2016 2.16.840.1.126342.4.391..30629 Juventino Be MD [facility] Unknown [id number] 08/13/2016 08/13/2016 2.16.840.1.852752.4.391..16309 Procedures No Data Provided for This Section Assessment and Plan No Data Provided for This Section Plan of Care No Data Provided for This Section Social History Social History Date Source Social History ElementQualifiersDate Reported Supplements . Do you use supplements Yes Multivitamin Jun 11, 2016 Tobacco Use: . Are you a: never smoker Jun 11, 2016 Caffeine intake? . Status: No Jun 11, 2016 Do you drink alcohol? . Status: No Jun 11, 2016 06/11/2016 [id number] Family History No Data Provided for This Section Advance Directives No Data Provided for This Section Functional Status No Data Provided for This Section
--- OUTSIDE RECORDS SUMMARY | 2019-02-26 01:26 | XMS REPORT ---
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 Active Problem Contact blepharoconjunctivitis 372.22 Active Problem 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 Active Problem Other anxiety states 300.09 Active Problem Iron deficiency anemia 280.9 Active Problem Neoplasm of uncertain behavior of skin 238.2 Active Problem Vitamin D deficiency 268.9 Active Problem B12 deficiency 266.2 Active Problem Dizziness 780.4 Active Problem Blackout 780.2 Active Problem Pneumonia due to Staphylococcus 482.40 Active Problem Anemia 285.9 Active Problem Methicillin resistant Staphylococcus aureus infection 041.12 Active Problem Mixed hyperlipidemia 272.2 Active Problem Other specified cardiac dysrhythmias 427.89 Active Problem Extrinsic asthma with exacerbation 493.02 Active Problem Acute hip pain 719.45 Active Problem Esophageal reflux 530.81 Active Problem Dyschromia 709.00 Active Problem 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 Active Problem Nonspecific abnormal serum enzyme levels 790.5 Active Problem Abnormal blood chemistry 790.6 Active Problem Strain of rotator cuff 840.4 Active Problem Allergic state 995.3 Active Problem Solitary pulmonary nodule 793.11 Active Problem Elevated blood pressure reading 796.2 Active Problem Laboratory examination V72.6 Apr 18, 2011 Active Problem Nausea alone 787.02 Active Problem Acute cystitis 595.0 February 19, 2011 Active Problem Cough 786.2 Active Problem Bronchitis, acute 466.0 Aug 09, 2013 Active Problem Enlarged lymph nodes 785.6 Active Problem Dysfunction of Eustachian tube 381.81 January 14, 2012 Active Problem Voice disturbance 784.40 Active Problem Screening for breast cancer (Unspecified breast screening) V76.10 Aug 09, 2013 Active Problem Special screening for malignant neoplasms, colon V76.51 Aug 09, 2013 Active Assessment Anxiety F41.9 Active Problem Heartburn 787.1 Active Problem Dermatitis 692.9 Active Problem Displacement of lumbar intervertebral disc 722.10 Active Problem Spinal stenosis in cervical region 723.0 Active Problem Cervicalgia 723.1 Active Problem Headache 784.0 Active Problem Hyperglycemia (Other abnormal blood chemistry) 790.6 Aug 30, 2010 Active Problem Earache, otogenic 388.71 Active Problem Other thalassemia 282.49 Aug 30, 2010 Active Problem Labyrinthitis 386.30 Active Problem Familial hyperlipoproteinemia, 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 Aug 16, 2010 Active Problem Other specified menopausal and postmenopausal disorder 627.8 Active Problem Acute cystitis 595.0 Active Problem Other B-complex deficiencies 266.2 Sep 24, 2010 Active Problem Local infection of skin and subcutaneous tissue 686.9 Active Problem 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 Sep 20, 2010 Active Problem Cellulitis and abscess of face 682.0 Active Problem Unspecified anemia 285.9 Aug 30, 2010 Active Problem Unspecified vitamin D deficiency 268.9 Aug 30, 2010 Active Problem Mixed hyperlipidemia 272.2 February 19, 2011 Active Problem Dysthymia 300.4 Aug 16, 2010 Active Problem Anemia, iron deficiency 280.9 Sep 24, 2010 Active Problem Reflux esophagitis 530.11 February 17, 2008 Active Problem Elevated blood pressure reading without diagnosis of hypertension 796.2 January 19, 2008 Active Problem Rhomboid muscle pain 729.1 January 19, 2008 Active Problem Acute shoulder pain 719.41 January 19, 2008 Active Problem Other nonspecific abnormal serum enzyme levels 790.5 May 22, 2010 Active Problem Essential hypertension, benign 401.1 January 19, 2008 Active Problem Sinus bradycardia 427.89 Jun 04, 2010 Active Problem Rotator cuff (capsule) sprain and strain 840.4 December 28, 2007 Active Problem Methicillin resistant Staphylococcus aureus 041.12 May 17, 2010 Active Problem Lumbar pain 724.2 December 28, 2007 Active Problem Extrinsic asthma with status asthmaticus 493.01 May 17, 2010 Active Problem Anxiety as acute reaction to exceptional stress 308.0 Aug 30, 2007 Active Problem Apudoma of skin 238.2 January 02, 2010 Active Problem Chronic pain syndrome 338.4 January 07, 2010 Active Problem Extrinsic asthma, with (acute) exacerbation 493.02 December 05, 2009 Active Problem Major depressive disorder, single episode, moderate 296.22 January 02, 2010 Active Problem Acute URI 465.9 December 05, 2009 Active Problem Cough 786.2 December 05, 2009 Active Problem Syncope and collapse 780.2 Aug 30, 2007 Active Problem Swelling, mass, or lump in head and neck 784.2 Aug 24, 2007 Active Problem Gastro-esophageal reflux 530.81 Aug 24, 2007 Active Problem Acute maxillary sinusitis 461.0 May 03, 2007 Active Problem Other specified acquired hypothyroidism 244.8 May 03, 2007 Active Problem Enlargement of lymph nodes 785.6 Jun 17, 2007 Active Problem Spinal stenosis in cervical region 723.0 Jun 17, 2007 Active Problem GERARDO (generalized anxiety disorder) 300.02 Mar 11, 2007 Active Problem Acute frontal sinusitis 461.1 May 03, 2007 Active Problem Cervical dystonia 333.83 May 07, 2007 Active Problem Heartburn 787.1 Mar 11, 2007 Active Problem Cervical pain 723.1 Mar 11, 2007 Active Problem Transient insomnia (Transient disorder of initiating or maintaining sleep) 307.41 Mar 11, 2007 Active Problem 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 Mar 11, 2007 Active Problem Dyschromia, unspecified 709.00 October 05, 2009 Active Problem Annual Physical (Routine general medical examination at health care facility) V70.0 October 05, 2009 Active Problem Postmenopausal related mood disorder 627.8 October 05, 2009 Active Problem Allergic rhinitis due to pollen 477.0 October 05, 2009 Active Problem Headache 784.0 October 23, 2009 Active Problem Pneumonia due to Staphylococcus, unspecified 482.40 October 23, 2009 Active Problem Other staphylococcus infection in conditions classified elsewhere and of unspecified site 041.19 October 23, 2009 Active Problem Cellulitis of face 682.0 October 23, 2009 Active Problem Otogenic pain 388.71 Sep 21, 2009 Active Problem Otitis externa of right ear 380.10 Sep 21, 2009 Active Problem Myalgia and myositis 729.1 Active Problem 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 Problem Arthralgia of hip or thigh 719.45 February 21, 2009 Active Problem Anxiety and depression 300.4 Active Problem Contact blepharoconjunctivitis 372.22 December 04, 2008 Active Problem Allergic reaction 995.3 November 22, 2008 Active Problem Anxiety, generalized 300.02 Active Problem Eczema 692.9 December 18, 2008 Active Problem Low back pain 724.2 Active Problem Other anxiety states 300.09 December 04, 2008 Active Problem Nausea alone 787.02 December 28, 2008 Active Problem Toe infection 686.9 December 18, 2008 Active Problem Unspecified labyrinthitis 386.30 January 09, 2009 Active Problem Light headedness 780.4 January 09, 2009 Active Problem Vitamin D deficiency E55.9 Active Problem Other chronic pain G89.29 Active Problem Obesity (BMI 35.0-39.9 without comorbidity) E66.9 Active Problem Mixed hyperlipidemia E78.2 Active Problem Hypothyroidism 244.9 Active Problem Fibromyalgia M79.7 Active Problem 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 November 16, 2008 Active Problem Seasonal allergic rhinitis due to pollen J30.1 Active Problem Nonspecific (abnormal) findings on radiological and other examination of lung field 793.1 February 17, 2008 Active Problem Acquired hypothyroidism 244 Jun 22, 2008 Active Medications Medication Code System Code Instructions Start Date End Date [facility] D[facility] [address] 1 MG by mouth three times a day (tid) as needed (prn) Active 1/2 to 1 tablet Results No Known Results Summary Purpose eClinicalWorks Submission
--- OUTSIDE RECORDS SUMMARY | 2019-02-26 01:26 | XMS REPORT ---
Author Author Zeny Page [facility] eClinicalWorks Address Unknown Phone Unavailable Care Team Providers Care [employer] Name Role Phone Zeny Page CP Unavailable Allergies, Adverse Reactions, Alerts Substance Reaction Event Type Ibuprofen Info Not Available Drug Allergy Diflunisal Info Not Available Drug Allergy Bystolic Info Not Available Drug Allergy Problems Problem Type Condition Code Onset Dates Condition Status Problem Infective otitis externa 380.10 Active Problem Dysfunction of Eustachian tube 381.81 Active Assessment Chronic urticaria L50.8 Active Problem 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 Active Problem Contact blepharoconjunctivitis 372.22 Active Problem 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 Active Problem Other anxiety states 300.09 Active Problem Iron deficiency anemia 280.9 Active Problem Neoplasm of uncertain behavior of skin 238.2 Active Problem Vitamin D deficiency 268.9 Active Problem B12 deficiency 266.2 Active Problem Dizziness 780.4 Active Assessment Hypothyroidism E03.9 Active Problem Blackout 780.2 Active Problem Pneumonia due to Staphylococcus 482.40 Active Problem Anemia 285.9 Active Assessment Sinus tachycardia R00.0 Active Problem Methicillin resistant Staphylococcus aureus infection 041.12 Active Assessment Mild intermittent asthma without complication J45.20 Active Problem Mixed hyperlipidemia 272.2 Active Assessment B12 deficiency E53.8 Active Problem Other specified cardiac dysrhythmias 427.89 Active Assessment Pedal edema R60.0 Active Problem Extrinsic asthma with exacerbation 493.02 Active Assessment Insomnia G47.00 Active Problem Acute hip pain 719.45 Active Assessment Fibromyalgia M79.7 Active Problem Esophageal reflux 530.81 Active Assessment Depression F32.9 Active Problem Dyschromia 709.00 Active Assessment Anxiety F41.9 Active Problem 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 Active Assessment Generalized pruritus L29.9 Active Problem Nonspecific abnormal serum enzyme levels [...] colon V76.51 Aug 09, 2013 Active Assessment Low back pain M54.5 Active Assessment Mixed hyperlipidemia E78.2 Active Problem Heartburn 787.1 Active Assessment Seasonal allergies J30.2 Active Assessment Vitamin D deficiency E55.9 Active Problem Dermatitis 692.9 Active Problem Displacement [...] Instructions Start Date End Date Status Dosage Soma NDC 0 350mg Tablet Active Take 1 tablet(s) by mouth tid Hydrochlorothiazide [facility] [address]-31 25 MG Orally Once a day in the morning Active 1 tablet Vitamin D2 [facility] 82[address]43 50,000 by mouth once a week Active 1 capsule by mouth once a week Cyanocobalamin [facility] [address]-18 1000 MCG/ML intramuscularly once a week as directed Active 1 ml Citalopram Hydrobromide [facility] [address]-82 20 MG Orally Once a day Active 1 tablet [place] Thyroid [facility] [address]-80 90 MG Orally Once a day Active 1 tablet Atenolol [facility] [address]-32 50 mg by mouth qam and 1/2 po qpm Active 1 tablet [place] [facility] [address]-52 10-325 MG by mouth every 6 hrs prn Active 1 tablet Amitriptyline HCl [facility] [address]-14 25 MG by mouth at bedtime Active 1 to 2 tablet(s) [place] Thyroid [facility] [address]-59 90 MG Orally Once a day January 09, 2017 Active 1 tablet BuPROPion HCl (XL) [facility] [address]-94 300 MG Orally Once a day Active 1 tablet in the morning Ambien CR [facility] [address]-63 6.25 MG Orally Once a day Inactive 1 tablet at bedtime as needed Furosemide [facility] [address]-21 20 MG Orally qam prn severe pedal edema January 09, 2017 Active 1 tablet Albuterol Sulfate [facility] [address]-85 (2.5 MG/3ML) 0.083% Inhalation Three times a day prn Active 3 ml ProAir HFA [facility] [address]-55 108 (90 Base) MCG/ACT Inhalation every 4 hrs Active 1-2 puffs as needed Ativan [facility] [address]-80 1 MG by mouth three times a day (tid) as needed (prn) Active 1/2 to 1 tablet Simvastatin [facility] [address]-80 20 mg by mouth at bedtime Active 1 tablet Micro-K [facility] [address]-91 10 MEQ Orally once a day Active 1 capsule Ambien CR [facility] [address]-56 12.5 MG Orally Once a day January 09, 2017 Active 1 tablet at bedtime as needed Syringe [facility] 0 3cc syringe with 23g needle, 1" Active IM injection of Vit B12, once per week Tramadol HCl [facility] [address]-49 50 mg Orally every 6 hrs prn pain Active 1 tablet HydrOXYzine HCl [facility] [address]-47 10 MG Orally as directed Active 1-3 tablets tid prn itching Singulair [facility] [address]-23 10 mg Orally Once a day Active 1 tablet in the evening Vital Signs Date/Time: January 09, 2017 Weight 200 lbs Height 63 in Temperature 97.5 F Cardiac Monitoring Heart Rate 75 /min BMI 35.42 Index Results No Known Results Summary Purpose eClinicalWorks Submission
--- OUTSIDE RECORDS SUMMARY | 2019-02-26 01:26 | XMS REPORT ---
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 Active Assessment Chronic urticaria L50.8 Active Problem Nonspecific abnormal serum enzyme levels 790.5 Active Problem Allergic state 995.3 Active Problem Enlarged lymph nodes 785.6 Active Problem Voice disturbance 784.40 Active Problem Dermatitis 692.9 Active Problem Local infection of skin and subcutaneous tissue 686.9 Active Problem Cellulitis and abscess of face 682.0 Active Problem Earache, otogenic 388.71 Active Problem Labyrinthitis 386.30 Active Assessment Hypothyroidism E03.9 Active Problem Methicillin resistant Staphylococcus aureus infection 041.12 Active Problem Pneumonia due to Staphylococcus 482.40 Active Problem Blackout 780.2 Active Assessment Sinus tachycardia R00.0 Active Problem Dyschromia 709.00 Active Assessment Mild intermittent asthma without complication J45.20 Active Problem Anxiety, generalized 300.02 Active Assessment B12 deficiency E53.8 Active Problem Strain of rotator cuff 840.4 Active Assessment Pedal edema R60.0 Active Problem B12 deficiency 266.2 Active Assessment Insomnia G47.00 Active Problem Extrinsic asthma with exacerbation 493.02 Active Assessment Fibromyalgia M79.7 Active Problem Acute hip pain 719.45 Active Assessment Depression F32.9 Active Problem Iron deficiency anemia 280.9 Active Assessment Anxiety F41.9 Active Problem Displacement of lumbar intervertebral disc 722.10 Active Assessment Generalized pruritus L29.9 Active Problem Cough 786.2 Active Problem Esophageal reflux 530.81 Active Problem Headache 784.0 Active Problem Heartburn 787.1 Active Problem Spinal stenosis in cervical region 723.0 Active Problem Cervicalgia 723.1 Active Problem GERARDO (generalized anxiety disorder) 300.02 Mar 11, 2007 Active Problem Nausea alone 787.02 Active Problem Postmenopausal related mood disorder 627.8 October 05, 2009 Active Problem Vitamin D deficiency 268.9 Active Problem Acute URI 465.9 December 05, 2009 Active Problem 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 Problem Otitis externa of right ear 380.10 Sep 21, 2009 Active Problem Low back pain 724.2 Active Problem Anxiety as acute reaction to exceptional stress 308.0 Aug 30, 2007 Active Problem Light headedness 780.4 January 09, 2009 Active Assessment Low back pain M54.5 Active Assessment Mixed hyperlipidemia E78.2 Active Problem Dizziness 780.4 Active Assessment Seasonal allergies J30.2 Active Assessment Vitamin D deficiency E55.9 Active Problem 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 Active Problem Acute cystitis 595.0 Active Problem Other specified menopausal and postmenopausal disorder 627.8 Active Problem Solitary pulmonary nodule 793.11 Active Problem Anxiety and depression 300.4 Active Problem Rhomboid muscle pain 729.1 January 19, 2008 Active Problem Mixed hyperlipidemia 272.2 Active Problem Dysthymia 300.4 Aug 16, 2010 Active Problem Neoplasm of uncertain behavior of skin 238.2 Active Problem Arthralgia of hip or thigh 719.45 February 21, 2009 Active Problem Dysfunction of Eustachian tube 381.81 Active Problem Other anxiety states 300.09 Active Problem Anemia, iron deficiency 280.9 Sep 24, 2010 Active Problem Contact blepharoconjunctivitis 372.22 Active Problem Cervical dystonia 333.83 May 07, 2007 Active Problem Other specified cardiac dysrhythmias 427.89 Active Problem Cervical pain 723.1 Mar 11, 2007 Active Problem Sinus bradycardia 427.89 Jun 04, 2010 Active Problem 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 November 16, 2008 Active Problem Bronchitis, acute 466.0 Aug 09, 2013 Active Problem Apudoma of skin 238.2 January 02, 2010 Active Problem Dysfunction of Eustachian tube 381.81 January 14, 2012 Active Problem Reflux esophagitis 530.11 February 17, 2008 Active Problem Spinal stenosis in cervical region 723.0 Jun 17, 2007 Active Problem Dyschromia, unspecified 709.00 October 05, 2009 Active Problem Familial hyperlipoproteinemia, 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 Aug 16, 2010 Active Problem Cellulitis of face 682.0 October 23, 2009 Active Problem Gastro-esophageal reflux 530.81 Aug 24, 2007 Active Problem Heartburn 787.1 Mar 11, 2007 Active Problem Lumbar pain 724.2 December 28, 2007 Active Problem Headache 784.0 October 23, 2009 Active Problem Toe infection 686.9 December 18, 2008 Active Problem Nausea alone 787.02 December 28, 2008 Active Problem Allergic reaction 995.3 November 22, 2008 Active Problem Eczema 692.9 December 18, 2008 Active Problem 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 Mar 11, 2007 Active Problem Acute shoulder pain 719.41 January 19, 2008 Active Problem Methicillin resistant Staphylococcus aureus 041.12 May 17, 2010 Active Problem Other staphylococcus infection in conditions classified elsewhere and of unspecified site 041.19 October 23, 2009 Active Problem Acute cystitis 595.0 February 19, 2011 Active Problem Cough 786.2 December 05, 2009 Active Problem Syncope and collapse 780.2 Aug 30, 2007 Active Problem Nonspecific (abnormal) findings on radiological and other examination of lung field 793.1 February 17, 2008 Active Problem Special screening for malignant neoplasms, colon V76.51 Aug 09, 2013 Active Problem Enlargement of lymph nodes 785.6 Jun 17, 2007 Active Problem Swelling, mass, or lump in head and neck 784.2 Aug 24, 2007 Active Problem Annual Physical (Routine general medical examination at health care facility) V70.0 October 05, 2009 Active Problem Screening for breast cancer (Unspecified breast screening) V76.10 Aug 09, 2013 Active Problem Laboratory examination V72.6 Apr 18, 2011 Active Problem Other nonspecific abnormal serum enzyme levels 790.5 May 22, 2010 Active Problem Hyperglycemia (Other abnormal blood chemistry) 790.6 Aug 30, 2010 Active Problem Elevated blood pressure reading without diagnosis of hypertension 796.2 January 19, 2008 Active Problem Rotator cuff (capsule) sprain and strain 840.4 December 28, 2007 Active Problem Other specified acquired hypothyroidism 244.8 May 03, 2007 Active Problem Acquired hypothyroidism 244 Jun 22, 2008 Active Problem Other anxiety states 300.09 December 04, 2008 Active Problem Unspecified anemia 285.9 Aug 30, 2010 Active Problem Major depressive disorder, single episode, moderate 296.22 January 02, 2010 Active Problem Mixed hyperlipidemia 272.2 February 19, 2011 Active Problem Unspecified vitamin D deficiency 268.9 Aug 30, 2010 Active Problem Other B-complex deficiencies 266.2 Sep 24, 2010 Active Problem Other thalassemia 282.49 Aug 30, 2010 Active Problem Contact blepharoconjunctivitis 372.22 December 04, 2008 Active Problem Infective otitis externa 380.10 Active Problem Elevated blood pressure reading 796.2 Active Problem Allergic rhinitis due to pollen 477.0 October 05, 2009 Active Problem Hypothyroidism 244.9 Active Problem Extrinsic asthma, with (acute) exacerbation 493.02 December 05, 2009 Active Problem Extrinsic asthma with status asthmaticus 493.01 May 17, 2010 Active Problem Anemia 285.9 Active Problem Otogenic pain 388.71 Sep 21, 2009 Active Problem Abnormal blood chemistry 790.6 Active Problem 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 Sep 20, 2010 Active Problem Essential hypertension, benign 401.1 January 19, 2008 Active Problem Unspecified labyrinthitis 386.30 January 09, 2009 Active Problem Chronic pain syndrome 338.4 January 07, 2010 Active Problem Transient insomnia (Transient disorder of initiating or maintaining sleep) 307.41 Mar 11, 2007 Active Problem Vitamin D deficiency E55.9 Active Problem Other chronic pain G89.29 Active Problem Obesity (BMI 35.0-39.9 without comorbidity) E66.9 Active Problem Mixed hyperlipidemia E78.2 Active Problem Myalgia and myositis 729.1 Active Problem Fibromyalgia M79.7 Active Problem Pneumonia due to Staphylococcus, unspecified 482.40 October 23, 2009 Active Problem Seasonal allergic rhinitis due to pollen J30.1 Active Problem Acute maxillary sinusitis 461.0 May 03, 2007 Active Problem Acute frontal sinusitis 461.1 May 03, 2007 Active Medications Medication Code System Code Instructions Start Date End Date Status Dosage Furosemide ND 56309161598 20 MG Orally qam prn severe pedal edema Active 1 tablet Micro-K [facility] 68743554335 10 MEQ Orally once a day Active 1 capsule [place] Thyroid ND 94080119824 90 MG Orally Once a day Inactive 1 tablet Vitamin D (Ergocalciferol) [facility] 03273854468 76681 UNIT Orally twice per week Apr 15, 2017 Jul 14, 2017 Active 1 capsule Cyanocobalamin [facility] 35229696265 1000 MCG/ML intramuscularly once a week as directed Active 1 ml Albuterol Sulfate ND 43661711556 (2.5 MG/3ML) 0.083% Inhalation Three times a day prn Active 3 ml BuPROPion HCl (XL) ND 59611220080 300 MG Orally Once a day Active 1 tablet in the morning Ambien CR [facility] 58568352694 12.5 MG Orally Once a day Active 1 tablet at bedtime as needed Hali Thyroid [facility] 26846315704 120 MG Orally Once a day Apr 15, 2017 Active 1 tablet [place] [facility] 74933358928 10-325 MG Orally every 6 hrs Jun 13, 2017 May 15, 2017 Active 1 tablet as needed HydrOXYzine HCl ND 24326825632 10 MG Orally as directed Active 1-3 tablets tid prn itching Citalopram Hydrobromide ND 12245171752 20 MG Orally Once a day Active 1 tablet ProAir HFA [facility] 56728590116 108 (90 Base) MCG/ACT Inhalation every 4 hrs Active 1-2 puffs as needed Atenolol ND 32230099396 50 mg by mouth qam and 1/2 po qpm Active 1 tablet Soma NDC 0 350mg Tablet Active Take 1 tablet(s) by mouth tid Tramadol HCl ND 23079472666 50 mg Orally every 6 hrs prn pain Active 1 tablet Vitamin D2 [facility] 26073611340 50,000 by mouth once a week Apr 15, 2017 Inactive 1 capsule by mouth once a week Hali Thyroid [facility] 23729342928 90 MG Orally Once a day January 09, 2017 Active 1 tablet Ativan ND 66691972141 1 MG by mouth three times a day (tid) as needed (prn) Active 1/2 to 1 tablet Hydrochlorothiazide ND 22632440163 25 MG Orally Once a day in the morning Inactive 1 tablet [place] [facility] 64077131857 10-325 MG by mouth every 6 hrs prn Active 1 tablet [place] [facility] 46987319400 10-325 MG Orally every 6 hrs Apr 15, 2017 May 15, 2017 Active 1 tablet as needed Singulair ND 62330010616 10 mg Orally Once a day Active 1 tablet in the evening Amitriptyline HCl ND 19040703347 25 MG by mouth at bedtime Active 1 to 2 tablet(s) Simvastatin ND 85813900055 20 mg by mouth at bedtime Active 1 tablet [place] [facility] 61928682285 10-325 MG Orally every 6 hrs May 13, 2017 May 15, 2017 Active 1 tablet as needed Syringe NDC 0 3cc syringe with 23g needle, 1" Active IM injection of Vit B12, once per week Vital Signs Date/Time: Apr 15, 2017 Weight 180 lbs Height 63 in Temperature 97.5 F Cardiac Monitoring Heart Rate 84 /min BMI 31.88 Index Results No Known Results Summary Purpose eClinicalWorks Submission
--- OUTSIDE RECORDS SUMMARY | 2019-02-26 01:26 | XMS REPORT ---
Author Author Zeny Page [facility] eClinicalWorks Address Unknown Phone Unavailable Care Team Providers Care Design Technology Professor Name Role Phone Zeny Page CP Unavailable [...] colon V76.51 Aug 09, 2013 Active Problem Heartburn 787.1 Active Problem Dermatitis [...] Instructions Start Date End Date Status Dosage METHYLCOBALAMIN (B12) NDC 0 1,000mcg/mL IM qweekly Apr 22, 2017 Active 1mL 25G 1" Needle NDC 0 Apr 22, 2017 Active as directed 3mL Luer-Lock Syringe NDC 0 Apr 22, 2017 Active as directed Results No Known Results Summary Purpose eClinicalWorks Submission
--- OUTSIDE RECORDS SUMMARY | 2019-02-26 01:26 | XMS REPORT ---
Author Author Zeny Page [facility] [place] eClinicalWorks Address Unknown Phone Unavailable Care Team Providers Care Elementary Special Education Teacher Name Role Phone Zeny Page CP Unavailable [...] Instructions Start Date End Date [facility] D[facility] [address] MG by mouth three times a day (tid) as needed (prn) Active 1/2 to 1 tablet Results No Known Results Summary Purpose eClinicalWorks Submission
--- OUTSIDE RECORDS SUMMARY | 2019-02-26 01:27 | XMS REPORT ---
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 Active Problem Enlarged lymph nodes 785.6 Active Problem Voice disturbance 784.40 Active Problem Dermatitis 692.9 Active Problem Local infection of skin and subcutaneous tissue 686.9 Active Problem Cellulitis and abscess of face 682.0 Active Problem Earache, otogenic 388.71 Active Problem Labyrinthitis 386.30 Active Problem Methicillin resistant Staphylococcus aureus infection 041.12 Active Problem Pneumonia due to Staphylococcus 482.40 Active Problem Blackout 780.2 Active Problem Dyschromia 709.00 Active Problem Anxiety, generalized 300.02 Active Problem Strain of rotator cuff 840.4 Active Problem B12 deficiency 266.2 Active Problem Extrinsic asthma with exacerbation 493.02 Active Problem Acute hip pain 719.45 Active Problem Iron deficiency anemia 280.9 Active Problem Displacement of lumbar intervertebral disc 722.10 Active Problem 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 Problem Nausea alone 787.02 Active Problem Allergic state 995.3 Active Problem Solitary pulmonary nodule 793.11 Active Problem Heartburn 787.1 Active Problem Nonspecific abnormal serum enzyme levels 790.5 Active Problem Other anxiety states 300.09 December 04, 2008 Active Problem Anxiety and depression 300.4 Active Problem Transient insomnia (Transient disorder of initiating or maintaining sleep) 307.41 Mar 11, 2007 Active Problem Vitamin D deficiency 268.9 Active Problem Other B-complex deficiencies 266.2 Sep 24, 2010 Active Problem Cough 786.2 Active Problem Mixed hyperlipidemia 272.2 February 19, 2011 Active Problem Headache 784.0 Active Problem 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 Mar 11, 2007 Active Problem Other specified acquired hypothyroidism 244.8 May 03, 2007 Active Problem Low back pain 724.2 Active Problem Acute cystitis 595.0 Active Problem Other specified menopausal and postmenopausal disorder 627.8 Active Problem Spinal stenosis in cervical region 723.0 Active Problem Cervicalgia 723.1 Active Problem Dizziness 780.4 Active Problem Acute cystitis 595.0 February 19, 2011 Active Problem Contact blepharoconjunctivitis 372.22 Active Problem Spinal stenosis in cervical region 723.0 Jun 17, 2007 Active Problem Other anxiety states 300.09 Active Problem Enlargement of lymph nodes 785.6 Jun 17, 2007 Active Problem Other specified cardiac dysrhythmias 427.89 Active Problem Dysfunction of Eustachian tube 381.81 Active Problem Acute maxillary sinusitis 461.0 May 03, 2007 Active Problem Esophageal reflux 530.81 Active Problem Acute frontal sinusitis 461.1 May 03, 2007 Active Problem 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 Active Problem 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 Sep 20, 2010 Active Problem Reflux esophagitis 530.11 February 17, 2008 Active Problem Contact blepharoconjunctivitis 372.22 December 04, 2008 Active Problem Unspecified labyrinthitis 386.30 January 09, 2009 Active Problem Essential hypertension, benign 401.1 January 19, 2008 Active Problem Light headedness 780.4 January 09, 2009 Active Problem Acute URI 465.9 December 05, 2009 Active Problem Otitis externa of right ear 380.10 Sep 21, 2009 Active Problem GERARDO (generalized anxiety disorder) 300.02 Mar 11, 2007 Active Problem Elevated blood pressure reading without diagnosis of hypertension 796.2 January 19, 2008 Active Problem Postmenopausal related mood disorder 627.8 October 05, 2009 Active Problem Heartburn 787.1 Mar 11, 2007 Active Problem 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 November 16, 2008 Active Problem Nonspecific (abnormal) findings on radiological and other examination of lung field 793.1 February 17, 2008 Active Problem Bronchitis, acute 466.0 Aug 09, 2013 Active Problem Laboratory examination V72.6 Apr 18, 2011 Active Problem Apudoma of skin 238.2 January 02, 2010 Active Problem Methicillin resistant Staphylococcus aureus 041.12 May 17, 2010 Active Problem Other staphylococcus infection in conditions classified elsewhere and of unspecified site 041.19 October 23, 2009 Active Problem Unspecified vitamin D deficiency 268.9 Aug 30, 2010 Active Problem Major depressive disorder, single episode, moderate 296.22 January 02, 2010 Active Problem Unspecified anemia 285.9 Aug 30, 2010 Active Problem Acquired hypothyroidism 244 Jun 22, 2008 Active Problem Anemia, iron deficiency 280.9 Sep 24, 2010 Active Problem Cervical pain 723.1 Mar 11, 2007 Active Problem Cervical dystonia 333.83 May 07, 2007 Active Problem Dysthymia 300.4 Aug 16, 2010 Active Problem Arthralgia of hip or thigh 719.45 February 21, 2009 Active Problem Sinus bradycardia 427.89 Jun 04, 2010 Active Problem Rhomboid muscle pain 729.1 January 19, 2008 Active Problem Toe infection 686.9 December 18, 2008 Active Problem Gastro-esophageal reflux 530.81 Aug 24, 2007 Active Problem Familial hyperlipoproteinemia, 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 Aug 16, 2010 Active Problem Acute shoulder pain 719.41 January 19, 2008 Active Problem Allergic reaction 995.3 November 22, 2008 Active Problem Eczema 692.9 December 18, 2008 Active Problem Lumbar pain 724.2 December 28, 2007 Active Problem Otogenic pain 388.71 Sep 21, 2009 Active Problem Extrinsic asthma, with (acute) exacerbation 493.02 December 05, 2009 Active Problem Extrinsic asthma with status asthmaticus 493.01 May 17, 2010 Active Problem Pneumonia due to Staphylococcus, unspecified 482.40 October 23, 2009 Active Problem Other thalassemia 282.49 Aug 30, 2010 Active Problem Allergic rhinitis due to pollen 477.0 October 05, 2009 Active Problem Chronic pain syndrome 338.4 January 07, 2010 Active Problem Dysfunction of Eustachian tube 381.81 January 14, 2012 Active Problem Dyschromia, unspecified 709.00 October 05, 2009 Active Problem Cellulitis of face 682.0 October 23, 2009 Active Problem Infective otitis externa 380.10 Active Problem Elevated blood pressure reading 796.2 Active Problem Syncope and collapse 780.2 Aug 30, 2007 Active Problem Hypothyroidism 244.9 Active Problem Annual Physical (Routine general medical examination at health care facility) V70.0 October 05, 2009 Active Problem Rotator cuff (capsule) sprain and strain 840.4 December 28, 2007 Active Problem Anemia 285.9 Active Problem Special screening for malignant neoplasms, colon V76.51 Aug 09, 2013 Active Problem Abnormal blood chemistry 790.6 Active Problem Screening for breast cancer (Unspecified breast screening) V76.10 Aug 09, 2013 Active Problem Swelling, mass, or lump in head and neck 784.2 Aug 24, 2007 Active Problem Nausea alone 787.02 December 28, 2008 Active Problem Headache 784.0 October 23, 2009 Active Problem Cough 786.2 December 05, 2009 Active Problem Vitamin D deficiency E55.9 Active Problem Other chronic pain G89.29 Active Problem Obesity (BMI 35.0-39.9 without comorbidity) E66.9 Active Problem Mixed hyperlipidemia E78.2 Active Problem Myalgia and myositis 729.1 Active Problem Fibromyalgia M79.7 Active Problem Hyperglycemia (Other abnormal blood chemistry) 790.6 Aug 30, 2010 Active Problem Seasonal allergic rhinitis due to pollen J30.1 Active Problem Anxiety as acute reaction to exceptional stress 308.0 Aug 30, 2007 Active Problem Other nonspecific abnormal serum enzyme levels 790.5 May 22, 2010 Active Medications No Known Medications Results No Known Results Summary Purpose eClinicalWorks Submission
--- OUTSIDE RECORDS SUMMARY | 2019-02-26 01:27 | XMS REPORT ---
Author Author Zeny Page [facility] eClinicalWorks Address Unknown Phone Unavailable Care Team Providers Care Dry Cell Assembly Machine Tender Name Role Phone Zeny Page CP Unavailable [...] hypothyroidism 244 Jun 22, 2008 Active Medications No Known Medications Results No Known Results Summary Purpose eClinicalWorks Submission
--- OUTSIDE RECORDS SUMMARY | 2019-02-26 01:27 | XMS REPORT ---
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 [id number] 1 MG Orally three times a day (tid) October 19, 2017 Active 1 tablet Results No Known Results Summary Purpose eClinicalWorks Submission
--- OUTSIDE RECORDS SUMMARY | 2019-02-26 01:27 | XMS REPORT ---
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 Active Problem Neoplasm of uncertain behavior of skin 238.2 Active Problem Heartburn 787.1 Active Problem 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 Active Problem Headache 784.0 Active Problem Cervicalgia 723.1 Active Problem Spinal stenosis in cervical region 723.0 Active Problem Esophageal reflux 530.81 Active Problem Cellulitis and abscess of face [...] of lumbar intervertebral disc 722.10 Active Problem Local infection of skin and subcutaneous tissue 686.9 Active Problem Dermatitis 692.9 Active Problem Nonspecific abnormal serum enzyme levels 790.5 Active Problem Allergic state 995.3 Active Problem Voice disturbance 784.40 Active Problem Enlarged lymph nodes 785.6 Active Problem Acute cystitis 595.0 February 19, 2011 Active Problem Dizziness 780.4 Active Problem Syncope and collapse 780.2 Aug 30, 2007 Active Problem Nausea alone 787.02 Active Problem Dyschromia, unspecified 709.00 October 05, 2009 Active Problem Vitamin D deficiency 268.9 Active Problem Annual Physical (Routine general medical examination at health care facility) V70.0 October 05, 2009 Active Problem 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 Problem Acquired hypothyroidism 244 Jun 22, 2008 Active Problem Allergic rhinitis due to pollen 477.0 October 05, 2009 Active Problem Cough 786.2 Active Problem Acute cystitis 595.0 Active Problem Other specified menopausal and postmenopausal disorder 627.8 Active Problem Solitary pulmonary nodule 793.11 Active Problem Anxiety and depression 300.4 Active Problem Low back pain 724.2 Active Problem Rotator cuff (capsule) sprain and strain 840.4 December 28, 2007 Active Problem Other anxiety states 300.09 Active Problem Elevated blood pressure reading without diagnosis of hypertension 796.2 January 19, 2008 Active Problem Mixed hyperlipidemia 272.2 Active Problem Hyperglycemia (Other abnormal blood chemistry) 790.6 Aug 30, 2010 Active Problem Other specified cardiac dysrhythmias 427.89 Active Problem Dysfunction of Eustachian tube 381.81 Active Problem Nonspecific (abnormal) findings on radiological and other examination of lung field 793.1 February 17, 2008 Active Problem 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 Active Problem Special screening for malignant neoplasms, colon V76.51 Aug 09, 2013 Active Problem Contact blepharoconjunctivitis 372.22 Active Problem Screening for breast cancer (Unspecified breast screening) V76.10 Aug 09, 2013 Active Problem Laboratory examination V72.6 Apr 18, 2011 Active Problem Cough 786.2 December 05, 2009 Active Problem Enlargement of lymph nodes 785.6 Jun 17, 2007 Active Problem Swelling, mass, or lump in head and neck 784.2 Aug 24, 2007 Active Problem Light headedness 780.4 January 09, 2009 Active Problem Acute URI 465.9 December 05, 2009 Active Problem Otitis externa of right ear 380.10 Sep 21, 2009 Active Problem GERARDO (generalized anxiety disorder) 300.02 Mar 11, 2007 Active Problem 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 Mar 11, 2007 Active Problem Postmenopausal related mood disorder 627.8 October 05, 2009 Active Problem Other nonspecific abnormal serum enzyme levels 790.5 May 22, 2010 Active Problem 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 November 16, 2008 Active Problem Methicillin resistant Staphylococcus aureus 041.12 May 17, 2010 Active Problem Bronchitis, acute 466.0 Aug 09, 2013 Active Problem Other staphylococcus infection in conditions classified elsewhere and of unspecified site 041.19 October 23, 2009 Active Problem Apudoma of skin 238.2 January 02, 2010 Active Problem Mixed hyperlipidemia 272.2 February 19, 2011 Active Problem Major depressive disorder, single episode, moderate 296.22 January 02, 2010 Active Problem Other B-complex deficiencies 266.2 Sep 24, 2010 Active Problem Unspecified vitamin D deficiency 268.9 Aug 30, 2010 Active Problem Other anxiety states 300.09 December 04, 2008 Active Problem Other specified acquired hypothyroidism 244.8 May 03, 2007 Active Problem Anemia, iron deficiency 280.9 Sep [...] pain 724.2 December 28, 2007 Active Problem Transient insomnia (Transient disorder of initiating or maintaining sleep) 307.41 Mar 11, 2007 Active Problem Essential hypertension, benign 401.1 January 19, 2008 Active Problem Unspecified labyrinthitis 386.30 January 09, 2009 Active Problem Otogenic pain 388.71 Sep 21, 2009 Active Problem Unspecified anemia 285.9 Aug 30, 2010 Active Problem Other thalassemia 282.49 Aug 30, 2010 Active Problem Contact blepharoconjunctivitis 372.22 December 04, 2008 Active Problem Chronic pain syndrome 338.4 January 07, 2010 Active Problem 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 Sep 20, 2010 Active Problem Extrinsic asthma, with (acute) exacerbation 493.02 December 05, 2009 Active Problem Infective otitis externa 380.10 Active Problem Elevated blood pressure reading 796.2 Active Problem Extrinsic asthma with status asthmaticus 493.01 May 17, 2010 Active Problem Hypothyroidism 244.9 Active Problem Cellulitis of face 682.0 October 23, 2009 Active Problem Heartburn 787.1 Mar 11, 2007 Active Problem Anemia 285.9 Active Problem Reflux esophagitis 530.11 February 17, 2008 Active Problem Abnormal blood chemistry 790.6 Active Problem Spinal stenosis in cervical region 723.0 Jun 17, 2007 Active Problem Acute maxillary sinusitis 461.0 May 03, 2007 Active Problem Dysfunction of Eustachian tube 381.81 January 14, 2012 Active Problem Pneumonia due to Staphylococcus, unspecified 482.40 October 23, 2009 Active Problem Acute frontal sinusitis 461.1 May 03, 2007 Active Problem Vitamin D deficiency E55.9 Active Problem Other chronic pain G89.29 Active Problem Obesity (BMI 35.0-39.9 without comorbidity) E66.9 Active Problem Mixed hyperlipidemia E78.2 Active Problem Myalgia and myositis 729.1 Active Problem Fibromyalgia M79.7 Active Problem Headache 784.0 October 23, 2009 Active Problem Seasonal allergic rhinitis due to pollen J30.1 Active Problem Anxiety as acute reaction to exceptional stress 308.0 Aug 30, 2007 Active Problem Nausea alone 787.02 December 28, 2008 Active Medications No Known Medications Results No Known Results Summary Purpose [employer] Submission
--- OUTSIDE RECORDS SUMMARY | 2019-02-26 01:27 | XMS REPORT ---
Author Author Zeny Page [facility] [place] [employer] Address Unknown Phone Unavailable Care Team Providers Care Pipefitter Name Role Phone Zeny Page CP Unavailable [...] Start Date End Date Status Dosage Furosemide [facility] 33527974162 20 MG Orally qam prn severe pedal edema Active 1 tablet Simvastatin ND 52925922681 20 mg by mouth at bedtime Active 1 tablet Syringe NDC 0 3cc syringe with 23g needle, 1" Active IM injection of Vit B12, once per week [facility] 38563351296 10-325 MG Orally every 6 hrs Jul 22, 2017 Aug 22, 2017 Active 1 tablet as needed Singulair ND 32217672715 10 mg Orally Once a day Active 1 tablet in the evening 25G 1" Needle NDC 0 Apr 22, 2017 Active as directed METHYLCOBALAMIN (B12) NDC 0 1,000mcg/mL IM qweekly Apr 22, 2017 Active 1mL Amitriptyline HCl ND 79349583778 25 MG by mouth at bedtime Active 1 to 2 tablet(s) [facility] 68770720661 10-325 MG Orally every 6 hrs( earliest fill date 09-20-2017) Sep 20, 2017 Aug 22, 2017 Active 1 tablet as needed Albuterol Sulfate ND 98244679369 (2.5 MG/3ML) 0.083% Inhalation Three times a day prn Active 3 ml Ambien CR ND 99998546917 12.5 MG Orally Once a day Active 1 tablet at bedtime as needed [place] [facility] 98994044337 10-325 MG by mouth every 6 hrs prn Active 1 tablet Clonazepam ND 26259227351 1 MG Orally three times a day (tid) as needed (prn) Jul 22, 2017 Active 1/2 - 1 tablet Soma NDC 0 350mg Tablet Active Take 1 tablet(s) by mouth tid Micro-K ND 47718842307 10 MEQ Orally once a day Active 1 capsule Medrol (Saurabh) NDC 0 4 MG Orally Active as directed 3mL Luer-Lock Syringe NDC 0 Apr 22, 2017 Active as directed Ativan ND 25305165615 1 MG by mouth three times a day (tid) as needed (prn) Inactive 1/2 to 1 tablet [place] Thyroid ND 44317378675 120 MG Orally Once a day Active 1 tablet [place] [facility] 99059578709 10-325 MG Orally every 6 hrs( earliest fill date 08-20-2017) Aug 20, 2017 Aug 22, 2017 Active 1 tablet as needed Citalopram Hydrobromide ND 45966533694 20 MG Orally Once a day Active 1 tablet ProAir HFA [facility] 13196567389 108 (90 Base) MCG/ACT Inhalation every 4 hrs Active 1-2 puffs as needed Vitamin D (Ergocalciferol) ND 10248410209 20561 UNIT Orally twice per week Apr 15, 2017 Active 1 capsule Tramadol HCl ND 07394368130 50 mg Orally every 6 hrs prn pain Active 1 tablet BuPROPion HCl (XL) ND 36162827221 300 MG Orally Once a day Active 1 tablet in the morning Atenolol ND 51713462357 50 mg by mouth qam and 1/2 po qpm Active 1 tablet HydrOXYzine HCl [facility] 03410081529 10 MG Orally as directed Active 1-3 tablets tid prn itching Vital Signs Date/Time: Jul 22, 2017 Weight 159 lbs Height 63 in Temperature 98.5 F Cardiac Monitoring Heart Rate 80 /min BMI 28.16 Index Results No Known Results Summary Purpose [employer]ClinicalWorks Submission
--- OUTSIDE RECORDS SUMMARY | 2019-02-26 01:27 | XMS REPORT ---
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 Estate Site Analyst Name Role Phone Zeny Page CP Unavailable Allergies, Adverse Reactions, Alerts Substance Reaction Event Type Ibuprofen Info Not Available Drug Allergy Diflunisal Info Not Available Drug Allergy Bystolic Info Not Available Drug Allergy Problems Problem Type Condition Code Onset Dates Condition Status Problem Other specified menopausal and postmenopausal disorder 627.8 Active Problem Solitary pulmonary nodule 793.11 Active Problem 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2 Active Problem Esophageal reflux 530.81 Active Assessment B12 deficiency E53.8 Active Problem Cough 786.2 Active Assessment Pedal edema R60.0 Active Problem Cervicalgia 723.1 Active Assessment Insomnia G47.00 Active Problem Spinal stenosis in cervical region 723.0 Active Assessment Depression F32.9 Active Problem Vitamin D deficiency 268.9 Active Assessment Hypothyroidism E03.9 Active Problem 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 Assessment Seasonal allergies J30.2 Active Problem Dizziness 780.4 Active Assessment Vitamin D deficiency E55.9 Active Problem Nausea alone 787.02 Active Problem Cellulitis and abscess of face 682.0 Active Problem Local infection of skin and subcutaneous tissue 686.9 Active Problem Enlarged lymph nodes 785.6 Active Problem Nonspecific abnormal serum enzyme levels 790.5 Active Problem Dermatitis 692.9 Active Problem Voice disturbance 784.40 Active Problem Cough 786.2 December 05, 2009 Active Problem Labyrinthitis 386.30 Active Problem Enlargement of lymph nodes 785.6 Jun 17, 2007 Active Problem Blackout 780.2 Active Problem Acute cystitis 595.0 February 19, 2011 Active Problem Pneumonia due to Staphylococcus 482.40 Active Problem Syncope and collapse 780.2 Aug 30, 2007 Active Problem Methicillin resistant Staphylococcus aureus infection 041.12 Active Problem Headache 784.0 October 23, 2009 Active Problem Nausea alone 787.02 December 28, 2008 Active Problem Heartburn 787.1 Mar 11, 2007 Active Problem Earache, otogenic 388.71 Active Assessment Anxiety F41.9 Active Assessment Lumbar back pain with radiculopathy affecting left lower extremity M54.16 Active Problem Iron deficiency anemia 280.9 Active Problem Anxiety, generalized 300.02 Active Problem Dyschromia 709.00 Active Problem B12 deficiency 266.2 Active Problem Strain of rotator cuff 840.4 Active Problem Elevated blood pressure reading without diagnosis of hypertension 796.2 January 19, 2008 Active Problem Elevated blood pressure reading 796.2 Active Problem Hyperglycemia (Other abnormal blood chemistry) 790.6 Aug 30, 2010 Active Problem Hypothyroidism 244.9 Active Problem Other nonspecific abnormal serum enzyme levels 790.5 May 22, 2010 Active Problem Acute hip pain 719.45 Active Problem Infective otitis externa 380.10 Active Problem Screening for breast cancer (Unspecified breast screening) V76.10 Aug 09, 2013 Active Problem Displacement of lumbar intervertebral disc 722.10 Active Problem Laboratory examination V72.6 Apr 18, 2011 Active Problem Extrinsic asthma with exacerbation 493.02 Active Problem Annual Physical (Routine general medical examination at health care facility) V70.0 October 05, 2009 Active Problem Rotator cuff (capsule) sprain and strain 840.4 December 28, 2007 Active Problem Swelling, mass, or lump in head and neck 784.2 Aug 24, 2007 Active Problem Nonspecific (abnormal) findings on radiological and other examination of lung field 793.1 February 17, 2008 Active Problem Special screening for malignant neoplasms, colon V76.51 Aug 09, 2013 Active Problem Acute URI 465.9 December 05, 2009 Active Problem Otitis externa of right ear 380.10 Sep 21, 2009 Active Problem GERARDO (generalized anxiety disorder) 300.02 Mar 11, 2007 Active Problem Postmenopausal related mood disorder 627.8 October 05, 2009 Active Problem Other staphylococcus infection in conditions classified elsewhere and of unspecified site 041.19 October 23, 2009 Active Problem 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 November 16, 2008 Active Problem 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 Mar 11, 2007 Active Problem Bronchitis, acute 466.0 Aug 09, 2013 Active Problem Major depressive disorder, single episode, moderate 296.22 January 02, 2010 Active Problem Apudoma of skin 238.2 January 02, 2010 Active Problem Methicillin resistant Staphylococcus aureus 041.12 May 17, 2010 Active Problem Anemia, iron deficiency 280.9 Sep 24, 2010 Active Problem Unspecified vitamin D deficiency 268.9 Aug 30, 2010 Active Problem Mixed hyperlipidemia 272.2 February 19, 2011 Active Problem Other specified acquired hypothyroidism 244.8 May 03, 2007 Active Problem Other B-complex deficiencies 266.2 Sep 24, 2010 Active Problem Other anxiety states 300.09 December 04, 2008 Active Problem Acquired hypothyroidism 244 Jun 22, 2008 Active Problem Cervical dystonia 333.83 May 07, 2007 Active Problem Sinus bradycardia 427.89 Jun 04, 2010 Active Problem Cervical pain 723.1 Mar 11, 2007 Active Problem Arthralgia of hip or thigh 719.45 February 21, 2009 Active Problem Gastro-esophageal reflux 530.81 Aug 24, 2007 Active Problem Rhomboid muscle pain 729.1 January 19, 2008 Active Problem Dysthymia 300.4 Aug 16, 2010 Active Problem Lumbar pain 724.2 December 28, 2007 Active Problem Familial hyperlipoproteinemia, 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 Aug 16, 2010 Active Problem Toe infection 686.9 December 18, 2008 Active Problem Allergic state 995.3 Active Problem Acute shoulder pain 719.41 January 19, 2008 Active Problem Allergic reaction 995.3 November 22, 2008 Active Problem Eczema 692.9 December 18, 2008 Active Problem Chronic pain syndrome 338.4 January 07, 2010 Active Problem Transient insomnia (Transient disorder of initiating or maintaining sleep) 307.41 Mar 11, 2007 Active Problem Essential hypertension, benign 401.1 January 19, 2008 Active Problem Unspecified labyrinthitis 386.30 January 09, 2009 Active Problem Unspecified anemia 285.9 Aug 30, 2010 Active Problem Other thalassemia 282.49 Aug 30, 2010 Active Problem Contact blepharoconjunctivitis 372.22 December 04, 2008 Active Problem Allergic rhinitis due to pollen 477.0 October 05, 2009 Active Problem Otogenic pain 388.71 Sep 21, 2009 Active Problem 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 Sep 20, 2010 Active Problem Low back pain 724.2 Active Problem Anxiety and depression 300.4 Active Problem Extrinsic asthma, with (acute) exacerbation 493.02 December 05, 2009 Active Problem Abnormal blood chemistry 790.6 Active Problem Spinal stenosis in cervical region 723.0 Jun 17, 2007 Active Problem Dyschromia, unspecified 709.00 October 05, 2009 Active Problem Myalgia and myositis 729.1 Active Problem Dysfunction of Eustachian tube 381.81 January 14, 2012 Active Problem Anemia 285.9 Active Problem Reflux esophagitis 530.11 February 17, 2008 Active Problem Acute frontal sinusitis 461.1 May 03, 2007 Active Problem Acute maxillary sinusitis 461.0 May 03, 2007 Active Problem Extrinsic asthma with status asthmaticus 493.01 May 17, 2010 Active Problem Pneumonia due to Staphylococcus, unspecified 482.40 October 23, 2009 Active Problem Obesity (BMI 35.0-39.9 without comorbidity) E66.9 Active Problem Vitamin D deficiency E55.9 Active Problem Depression F32.9 Active Problem Seasonal allergic rhinitis due to pollen J30.1 Active Problem Mixed hyperlipidemia E78.2 Active Problem Fibromyalgia M79.7 Active Problem Cellulitis of face 682.0 October 23, 2009 Active Problem Other chronic pain G89.29 Active Problem Light headedness 780.4 January 09, 2009 Active Problem Anxiety as acute reaction to exceptional stress 308.0 Aug 30, 2007 Active Medications Medication Code System Code Instructions Start Date End Date Status Dosage Medrol (Saurabh) NDC 0 4 mg Orally Active as directed Vitamin D (Ergocalciferol) ND 10376633884 24886 UNIT Orally twice per week Active 1 capsule Albuterol Sulfate ND 15733694004 (2.5 MG/3ML) 0.083% Inhalation Three times a day prn Active 3 ml Singulair ND 12322038113 10 mg Orally Once a day Active 1 tablet in the evening Soma NDC 0 350mg Tablet Active Take 1 tablet(s) by mouth tid BuPROPion HCl (XL) ND 62136747297 300 MG Orally Once a day Active 1 tablet in the morning HydrOXYzine HCl ND 68563637273 10 mg Orally as directed Active 1-3 tablets tid prn itching Tussionex Pennkinetic ER ND 23948960605 10-8 MG/5ML Orally every 12 hrs Jun 18, 2018 Active 5 ml as needed ProAir HFA [facility] 89833219592 108 (90 Base) MCG/ACT Inhalation every 4 hrs Active 1-2 puffs as needed Clonazepam ND 95478945183 1 MG Orally three times a day (tid) as needed (prn) Active 1 tablet [place] ND 81118159966 10-325 MG by mouth every 6 hrs prn Active 1 tablet Syringe NDC 0 3cc syringe with 23g needle, 1 Active IM injection of Vit B12, once per week 25G 1" Needle NDC 0 Active as directed 3mL Luer-Lock Syringe NDC 0 Active as directed Simvastatin ND 56470627970 20 mg by mouth at bedtime Active 1 tablet [place] ND 58423480829 10-325 MG Orally every 6 hrs PRN Pain November 12, 2018 February 10, 2019 Active 1 tablet Ambien CR ND 68195164543 12.5 MG Orally Once a day Active 1 tablet at bedtime as needed HydrOXYzine HCl ND 09166671762 10 mg Orally three times a day (tid) PRN itching Active 1-3 tablet(s) Citalopram Hydrobromide ND 70201336447 40 MG Orally Once a day Active 1 tablet Atenolol ND 77446968333 25 MG Orally twice a day (bid) Active 1 tablet [place] NDC 64052254789 10-325 MG Orally every 6 hrs(earliest fill 04-08-2019) Apr 08, 2019 Mar 10, 2019 Active 1 tablet as needed for pain [place] NDC 31075139171 10-325 MG Orally every 6 hrs February 07, 2019 Mar 10, 2019 Active 1 tablet as needed for pain METHYLCOBALAMIN (B12) NDC 0 1,000mcg/mL IM qweekly Active 1mL [place] NDC 30533121674 10-325 MG Orally every 6 hrs(earliest fill 03-08-2019) Mar 08, 2019 Mar 10, 2019 Active 1 tablet as needed for pain [place] Thyroid ND 45154332185 120 MG Orally Once a day Active 1 tablet Amitriptyline HCl ND 54703059166 25 MG by mouth at bedtime Active 1 to 2 tablet(s) Methocarbamol ND 18544225771 750 MG Orally tid February 07, 2019 Inactive 1-2 tablets Furosemide ND 21574479284 20 MG Orally qam prn severe pedal edema Active 1 tablet Micro-K [facility] 07056039162 10 MEQ Orally once a day Active 1 capsule Tramadol HCl [facility] 90878616469 50 mg Orally every 6 hrs prn pain Active 1 tablet Vital Signs Date/Time: February 07, 2019 Weight 162 lbs Height 63 in Temperature 97.9 F Cardiac Monitoring Heart Rate 124 /min BMI 28.69 Index Results No Known Results Summary Purpose eClinicalWorks Submission
--- OUTSIDE RECORDS SUMMARY | 2019-02-26 01:28 | XMS REPORT ---
Author Author Zeny Page [facility] eClinicalWorks Address Unknown Phone Unavailable Care Team Providers Care Die Finisher Name Role Phone Zeny Page CP Unavailable [...] Instructions Start Date End Date Status Dosage Amitriptyline HCl ND 66426473816 25 MG by mouth at bedtime Active 1 to 2 tablet(s) ProAir HFA [facility] 14500660554 108 (90 Base) MCG/ACT Inhalation every 4 hrs Active 1-2 puffs as needed [place] ND 31691636109 10-325 MG Orally every 6 hrs( earliest fill date 11-17-2017) November 17, 2017 November 19, 2017 Active 1 tablet as needed [place] ND 78347712520 10-325 MG Orally every 6 hrs October 19, 2017 November 19, 2017 Active 1 tablet as needed 3mL Luer-Lock Syringe NDC 0 Active as directed Micro-K ND 51041033092 10 MEQ Orally once a day Active 1 capsule Clonazepam ND 98415480006 1 MG Orally three times a day (tid) as needed (prn) Inactive 1/2 - 1 tablet [place] ND 66902991936 10-325 MG Orally every 6 hrs( earliest fill date 12-17-2017) December 17, 2017 November 19, 2017 Active 1 tablet as needed Atenolol ND 96568844937 25 MG Orally twice a day (bid) October 19, 2017 Active 1 tablet METHYLCOBALAMIN (B12) NDC 0 1,000mcg/mL IM qweekly Active 1mL Syringe NDC 0 3cc syringe with 23g needle, 1" Active IM injection of Vit B12, once per week 25G 1" Needle NDC 0 Active as directed Furosemide ND 18017282083 20 MG Orally qam prn severe pedal edema Active 1 tablet Citalopram Hydrobromide ND 81996831563 40 MG Orally Once a day Active 1 tablet Albuterol Sulfate ND 57920077454 (2.5 MG/3ML) 0.083% Inhalation Three times a day prn Active 3 ml Simvastatin ND 07020348227 20 mg by mouth at bedtime Active 1 tablet Lorazepam ND 49188692945 1 MG Orally three times a day (tid) October 19, 2017 Active 1 tablet BuPROPion HCl (XL) ND 66232210075 300 MG Orally Once a day Active 1 tablet in the morning Tramadol HCl ND 35497418398 50 mg Orally every 6 hrs prn pain Active 1 tablet Soma NDC 0 350mg Tablet Active Take 1 tablet(s) by mouth tid [place] ND 11348381919 10-325 MG by mouth every 6 hrs prn Active 1 tablet Ambien CR ND 96661550911 12.5 MG Orally Once a day Active 1 tablet at bedtime as needed Atenolol ND 33530392241 50 mg by mouth qam and 1/2 po qpm Inactive 1 tablet Vitamin D (Ergocalciferol) ND 59593857371 76498 UNIT Orally twice per week Active 1 capsule HydrOXYzine HCl ND 68501509980 10 MG Orally as directed Active 1-3 tablets tid prn itching Singulair ND 78312146127 10 mg Orally Once a day Active 1 tablet in the evening [place] Thyroid ND 26048245408 120 MG Orally Once a day Active 1 tablet Vital Signs Date/Time: October 19, 2017 Weight 149 lbs Height 63 in Temperature 97.8 F Cardiac Monitoring Heart Rate 68 /min BMI 26.39 Index Results No Known Results Summary Purpose eClinicalWorks Submission
--- OUTSIDE RECORDS SUMMARY | 2019-02-26 01:28 | XMS REPORT ---
Author Author Zeny Page [facility] eClinicalWorks Address Unknown Phone Unavailable Care Team Providers Care Dairy Tester Name Role Phone Zeny Page CP Unavailable [...] headedness 780.4 January 09, 2009 Active Problem Dizziness 780.4 Active Problem Intrinsic [...] sinusitis 461.1 May 03, 2007 Active Medications No Known Medications Results No Known Results Summary Purpose eClinicalWorks Submission
--- OUTSIDE RECORDS SUMMARY | 2019-02-26 01:28 | XMS REPORT ---
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 Active Problem Dysfunction of Eustachian tube 381.81 Active Problem Contact blepharoconjunctivitis 372.22 Active Problem Dizziness 780.4 Active Problem Other specified cardiac dysrhythmias 427.89 Active Problem GERARDO (generalized anxiety disorder) 300.02 Mar 11, 2007 Active Problem Other specified menopausal and postmenopausal disorder 627.8 Active Problem Postmenopausal related mood disorder 627.8 October 05, 2009 Active Problem Spinal stenosis in cervical region 723.0 Active Problem Acute URI 465.9 December 05, 2009 Active Problem Cervicalgia 723.1 Active Problem Otitis externa of right ear 380.10 Sep 21, 2009 Active Problem 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 Active Problem Anxiety as acute reaction to exceptional stress 308.0 Aug 30, 2007 Active Problem Light headedness 780.4 January 09, 2009 Active Assessment Anxiety F41.9 Active Problem Acute cystitis 595.0 Active Problem Headache 784.0 Active Problem Other anxiety states 300.09 Active Problem Mixed hyperlipidemia 272.2 Active Problem Neoplasm of uncertain behavior of skin 238.2 Active Problem 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 Active Problem Arthralgia of hip or thigh 719.45 February 21, 2009 Active Problem Low back pain 724.2 Active Problem Gastro-esophageal reflux 530.81 Aug 24, 2007 Active Problem Anxiety and depression 300.4 Active Problem Toe infection 686.9 December 18, 2008 Active Problem Nausea alone 787.02 Active Problem 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 Problem Cervical dystonia 333.83 May 07, 2007 Active Problem Heartburn 787.1 Active Problem Cervical pain 723.1 Mar 11, 2007 Active Problem Cough 786.2 Active Problem Rhomboid muscle pain 729.1 January 19, 2008 Active Problem Dysthymia 300.4 Aug 16, 2010 Active Problem 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 November 16, 2008 Active Problem Apudoma of skin 238.2 January 02, 2010 Active Problem Anemia, iron deficiency 280.9 Sep 24, 2010 Active Problem Enlargement of lymph nodes 785.6 Jun 17, 2007 Active Problem Heartburn 787.1 Mar 11, 2007 Active Problem Headache 784.0 October 23, 2009 Active Problem Allergic reaction 995.3 November 22, 2008 Active Problem Acute shoulder pain 719.41 January 19, 2008 Active Problem Familial hyperlipoproteinemia, 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 Aug 16, 2010 Active Problem Eczema 692.9 December 18, 2008 Active Problem Sinus bradycardia 427.89 Jun 04, 2010 Active Problem Laboratory examination V72.6 Apr 18, 2011 Active Problem Other anxiety states 300.09 December 04, 2008 Active Problem Nonspecific (abnormal) findings on radiological and other examination of lung field 793.1 February 17, 2008 Active Problem Acquired hypothyroidism 244 Jun 22, 2008 Active Problem Elevated blood pressure reading without diagnosis of hypertension 796.2 January 19, 2008 Active Problem Annual Physical (Routine general medical examination at health care facility) V70.0 October 05, 2009 Active Problem Other nonspecific abnormal serum enzyme levels 790.5 May 22, 2010 Active Problem Hyperglycemia (Other abnormal blood chemistry) 790.6 Aug 30, 2010 Active Problem Cough 786.2 December 05, 2009 Active Problem Nausea alone 787.02 December 28, 2008 Active Problem Other B-complex deficiencies 266.2 Sep 24, 2010 Active Problem Other staphylococcus infection in conditions classified elsewhere and of unspecified site 041.19 October 23, 2009 Active Problem Major depressive disorder, single episode, moderate 296.22 January 02, 2010 Active Problem Dyschromia, unspecified 709.00 October 05, 2009 Active Problem Spinal stenosis in cervical region 723.0 Jun 17, 2007 Active Problem 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 Mar 11, 2007 Active Problem Cellulitis of face 682.0 October 23, 2009 Active Problem Syncope and collapse 780.2 Aug 30, 2007 Active Problem Pneumonia due to Staphylococcus, unspecified 482.40 October 23, 2009 Active Problem 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0 February 19, 2011 Active Problem Reflux esophagitis 530.11 February 17, 2008 Active Problem Extrinsic asthma, with (acute) exacerbation 493.02 December 05, 2009 Active Problem Extrinsic asthma with status asthmaticus 493.01 May 17, 2010 Active Problem Dysfunction of Eustachian tube 381.81 January 14, 2012 Active Problem Chronic pain syndrome 338.4 January 07, 2010 Active Problem Infective otitis externa 380.10 Active Problem Elevated blood pressure reading 796.2 Active Problem Unspecified anemia 285.9 Aug 30, 2010 Active Problem Hypothyroidism 244.9 Active Problem Screening for breast cancer (Unspecified breast screening) V76.10 Aug 09, 2013 Active Problem Special screening for malignant neoplasms, colon V76.51 Aug 09, 2013 Active Problem Anemia 285.9 Active Problem Methicillin resistant Staphylococcus aureus 041.12 May 17, 2010 Active Problem Abnormal blood chemistry 790.6 Active Problem Rotator cuff (capsule) sprain and strain 840.4 December 28, 2007 Active Problem Unspecified vitamin D deficiency 268.9 Aug 30, 2010 Active Problem Other specified acquired hypothyroidism 244.8 May 03, 2007 Active Problem Other thalassemia 282.49 Aug 30, 2010 Active Problem Mixed hyperlipidemia 272.2 February 19, 2011 Active Problem Vitamin D deficiency E55.9 Active Problem Fibromyalgia M79.7 Active Problem Obesity (BMI 35.0-39.9 without comorbidity) E66.9 Active Problem Mixed hyperlipidemia E78.2 Active Problem Myalgia and myositis 729.1 Active Problem Other chronic pain G89.29 Active Problem Lumbar pain 724.2 December 28, 2007 Active Problem Seasonal allergic rhinitis due to pollen J30.1 Active Problem Swelling, mass, or lump in head and neck 784.2 Aug 24, 2007 Active Problem Bronchitis, acute 466.0 Aug 09, 2013 Active Medications Medication Code System Code Instructions Start Date End Date Status Dosage Clonazepam [facility] 72131205746 1 MG Orally three times a day (tid) as needed (prn) Active 1 tablet Results No Known Results Summary Purpose eClinicalWorks Submission
--- OUTSIDE RECORDS SUMMARY | 2019-02-26 01:28 | XMS REPORT ---
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 Problem Dizziness 780.4 Active Problem Nausea alone 787.02 Active Problem [...] Nausea alone 787.02 December 28, 2008 Active Assessment Anxiety F41.9 Active Problem Heartburn 787.1 Mar 11, 2007 Active Problem Earache, otogenic 388.71 Active Assessment Depression F32.9 Active Problem Iron [...] Instructions Start Date End Date Status Dosage 25G 1" Needle ND 0 Active as directed Furosemide [facility] 14387675115 20 MG Orally qam prn severe pedal edema Active 1 tablet Vitamin D (Ergocalciferol) [facility] 74912135636 42770 UNIT Orally twice per week Active 1 capsule Lorazepam [facility] 31195527406 1 MG Orally three times a day (tid) Inactive 1 tablet Atenolol ND 54430381612 25 MG Orally twice a day (bid) October 19, 2017 Active 1 tablet Amitriptyline HCl ND 57268094902 25 MG by mouth at bedtime Active 1 to 2 tablet(s) [place] [facility] 09461133578 10-325 MG by mouth every 6 hrs prn Active 1 tablet Ambien CR ND 63874128755 12.5 MG Orally Once a day Active 1 tablet at bedtime as needed 3mL Luer-Lock Syringe ND 0 Active as directed Albuterol Sulfate [facility] 34180693448 (2.5 MG/3ML) 0.083% Inhalation Three times a day prn Active 3 ml Citalopram Hydrobromide [facility] 63150471514 40 MG Orally Once a day Active 1 tablet ProAir HFA [facility] 70751696066 108 (90 Base) MCG/ACT Inhalation every 4 hrs Active 1-2 puffs as needed Singulair ND 04076178960 10 mg Orally Once a day Active 1 tablet in the evening Soma NDC 0 350mg Tablet Active Take 1 tablet(s) by mouth tid Tramadol HCl ND 90755667111 50 mg Orally every 6 hrs prn pain Active 1 tablet Micro-K [facility] 58916952623 10 MEQ Orally once a day Active 1 capsule [place] Thyroid ND 00146243965 120 MG Orally Once a day Active 1 tablet Syringe NDC 0 3cc syringe with 23g needle, 1" Active IM injection of Vit B12, once per week Simvastatin ND 51148615904 20 mg by mouth at bedtime Active 1 tablet BuPROPion HCl (XL) [facility] 08263616090 300 MG Orally Once a day Active 1 tablet in the morning METHYLCOBALAMIN (B12) NDC 0 1,000mcg/mL IM qweekly Active 1mL Clonazepam [facility] 29140234863 1 MG Orally three times a day (tid) as needed (prn) Active 1 tablet HydrOXYzine HCl [facility] 66042850655 10 MG Orally as directed Active 1-3 tablets tid prn itching Vital Signs Date/Time: December 30, 2017 Weight 140 lbs Height 63 in Temperature 98.4 F Cardiac Monitoring Heart Rate 83 /min BMI 24.80 Index Results No Known Results Summary Purpose eClinicalWorks Submission
--- OUTSIDE RECORDS SUMMARY | 2019-02-26 01:28 | XMS REPORT ---
Author Author Zeny Page Organization eClinicalWorks Address Unknown Phone Unavailable Care Team Providers Care Full Stack Engineer Name Role Phone Zeny Page CP Unavailable Allergies, Adverse Reactions, Alerts Substance Reaction Event Type Ibuprofen Info Not Available Drug Allergy Diflunisal Info Not Available Drug Allergy Bystolic Info Not Available Drug Allergy Problems Problem Type Condition Code Onset Dates Condition Status Problem Other specified menopausal and postmenopausal disorder 627.8 Active Problem Solitary pulmonary nodule 793.11 Active Assessment Mild intermittent asthma without complication J45.20 Active Problem 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 Active Assessment Sinus tachycardia R00.0 Active Problem Acute cystitis 595.0 Active Problem Contact blepharoconjunctivitis 372.22 Active Problem Other specified cardiac dysrhythmias 427.89 Active Problem Dysfunction of Eustachian tube 381.81 Active Problem Other anxiety states 300.09 Active Problem Mixed hyperlipidemia 272.2 Active Problem Neoplasm of uncertain behavior of skin 238.2 Active Problem 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 Active Assessment Mixed hyperlipidemia E78.2 Active Problem Headache 784.0 Active Problem Heartburn 787.1 Active Problem 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 Active Assessment Pedal edema R60.0 Active Problem Esophageal reflux 530.81 Active Assessment Insomnia G47.00 Active Problem Cough 786.2 Active Assessment Fibromyalgia M79.7 Active Problem Cervicalgia 723.1 Active Assessment Depression F32.9 Active Problem Spinal stenosis in cervical region 723.0 Active Assessment Hypothyroidism E03.9 Active Problem Vitamin D deficiency 268.9 Active Assessment Seasonal allergies J30.2 Active Problem 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 Assessment Vitamin D deficiency E55.9 Active Problem Dizziness 780.4 Active Assessment Low back pain M54.5 Active Problem Nausea alone 787.02 Active Assessment B12 deficiency E53.8 Active Problem Cellulitis and abscess of face [...] Instructions Start Date End Date Status Dosage Simvastatin ND 93307216886 20 mg by mouth at bedtime Active 1 tablet [place] ND 64075820472 5 % Externally Once a day Aug 11, 2018 November 09, 2018 Active 1 patch to skin remove after 12 hours [place] ND 03604817732 10-325 MG Orally every 6 hrs prn pain( earliest fill 10-07-2018) October 07, 2018 Sep 11, 2018 Active 1 tablet as needed Medrol (Saurabh) NDC 0 4 mg Orally Aug 11, 2018 Active as directed Clonazepam ND 09348916925 1 MG Orally three times a day (tid) as needed (prn) Active 1 tablet METHYLCOBALAMIN (B12) NDC 0 1,000mcg/mL IM qweekly Active 1mL Furosemide ND 75617056975 20 MG Orally qam prn severe pedal edema Active 1 tablet Amitriptyline HCl ND 98814080150 25 MG by mouth at bedtime Active 1 to 2 tablet(s) [place] [facility] 31309174105 10-325 MG Orally every 6 hrs prn pain( earliest fill 09-09-2018) Sep 09, 2018 Sep 11, 2018 Active 1 tablet as needed Atenolol ND 54041438174 25 MG Orally twice a day (bid) Active 1 tablet Tussionex Penn[place] ER [facility] 82711724884 10-8 MG/5ML Orally every 12 hrs Jun 18, 2018 Active 5 ml as needed HydrOXYzine HCl ND 26948359333 10 mg Orally as directed Active 1-3 tablets tid prn itching 25G 1" Needle NDC 0 Active as directed 3mL Luer-Lock Syringe NDC 0 Active as directed Singulair ND 79285846199 10 mg Orally Once a day Active 1 tablet in the evening Ambien CR [facility] 23457441870 12.5 MG Orally Once a day Active 1 tablet at bedtime as needed Soma NDC 0 350mg Tablet Active Take 1 tablet(s) by mouth tid Albuterol Sulfate [facility] 58535403679 (2.5 MG/3ML) 0.083% Inhalation Three times a day prn Active 3 ml [place] [facility] 59823704449 10-325 MG Orally every 6 hrs prn pain Aug 11, 2018 Sep 11, 2018 Active 1 tablet as needed Syringe NDC 0 3cc syringe with 23g needle, 1 Active IM injection of Vit B12, once per week Tramadol HCl [facility] 90001022538 50 mg Orally every 6 hrs prn pain Active 1 tablet Vitamin D (Ergocalciferol) [facility] 33592025385 24417 UNIT Orally twice per week Active 1 capsule [place] [facility] 47481914570 10-325 MG by mouth every 6 hrs prn Active 1 tablet ProAir HFA [facility] 08633584842 108 (90 Base) MCG/ACT Inhalation every 4 hrs Active 1-2 puffs as needed [place] Thyroid ND 07617399493 120 MG Orally Once a day Active 1 tablet Citalopram Hydrobromide ND 24274328050 40 MG Orally Once a day Active 1 tablet BuPROPion HCl (XL) [facility] 14373699941 300 MG Orally Once a day Active 1 tablet in the morning Micro-K [facility] 65810137032 10 MEQ Orally once a day Active 1 capsule Vital Signs Date/Time: Aug 11, 2018 Weight 155 lbs Height 63 in Temperature 98.5 F Cardiac Monitoring Heart Rate 113 /min BMI 27.45 Index Results No Known Results Summary Purpose eClinicalWorks Submission
--- OUTSIDE RECORDS SUMMARY | 2019-02-26 01:29 | XMS REPORT ---
Author Author Zeny Page [facility] eClinicalWorks Address Unknown Phone Unavailable Care Team Providers Care Automotive Tire Testing Supervisor Name Role Phone Zeny Paeg CP Unavailable Allergies, Adverse Reactions, Alerts Substance Reaction Event Type Ibuprofen Info Not Available Drug Allergy Diflunisal Info Not Available Drug Allergy Bystolic Info Not Available Drug Allergy Problems Problem Type Condition Code Onset Dates Condition Status Problem Other specified menopausal and postmenopausal disorder 627.8 Active Problem Solitary pulmonary nodule 793.11 Active Assessment Sinus tachycardia R00.0 Active Problem Intrinsic asthma with status asthmaticus [...] reaction as adjustment reaction 309.1 Active Assessment B12 deficiency E53.8 Active Problem Esophageal reflux 530.81 Active Assessment Pedal edema R60.0 Active Problem Cough 786.2 Active Assessment Insomnia G47.00 Active Problem Cervicalgia 723.1 Active Assessment Fibromyalgia M79.7 Active Problem Spinal stenosis in cervical region 723.0 Active Assessment Depression F32.9 Active Problem Vitamin D deficiency 268.9 Active Assessment Hypothyroidism E03.9 Active Problem 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 Assessment Seasonal allergies J30.2 Active Problem Dizziness 780.4 Active Assessment Vitamin D deficiency E55.9 Active Problem Nausea alone 787.02 Active Assessment Mild intermittent asthma without complication J45.20 Active Problem Cellulitis and abscess of face [...] Active Problem Earache, otogenic 388.71 Active Assessment Mixed hyperlipidemia E78.2 Active Assessment Anxiety F41.9 Active Problem Iron deficiency anemia 280.9 Active [...] Instructions Start Date End Date Status Dosage Tramadol HCl ND 15510160022 50 mg Orally every 6 hrs prn pain Active 1 tablet Amitriptyline HCl ND 73014267328 25 MG by mouth at bedtime Active 1 to 2 tablet(s) Simvastatin ND 22519120940 20 mg by mouth at bedtime Active 1 tablet HydrOXYzine HCl ND 00795009322 10 MG Orally as directed Active 1-3 tablets tid prn itching Syringe NDC 0 3cc syringe with 23g needle, 1" Active IM injection of Vit B12, once per week Furosemide ND 20405803387 20 MG Orally qam prn severe pedal edema Active 1 tablet Citalopram Hydrobromide ND 62821211170 40 MG Orally Once a day Active 1 tablet Soma NDC 0 350mg Tablet Active Take 1 tablet(s) by mouth tid METHYLCOBALAMIN (B12) ND 0 1,000mcg/mL IM qweekly Active 1mL Atenolol ND 09799079122 25 MG Orally twice a day (bid) Active 1 tablet 25G 1" Needle NDC 0 Active as directed [place] Thyroid ND 19352554167 120 MG Orally Once a day Active 1 tablet Micro-K [facility] 72329796820 10 MEQ Orally once a day Active 1 capsule Albuterol Sulfate ND 32250216471 (2.5 MG/3ML) 0.083% Inhalation Three times a day prn Active 3 ml ProAir HFA [facility] 79744568099 108 (90 Base) MCG/ACT Inhalation every 4 hrs Active 1-2 puffs as needed Ambien CR [facility] 62812952308 12.5 MG Orally Once a day Active 1 tablet at bedtime as needed Singulair ND 51480793176 10 mg Orally Once a day Active 1 tablet in the evening [place] ND 84664616666 10-325 MG by mouth every 6 hrs prn Active 1 tablet Clonazepam [facility] 93358101853 1 MG Orally three times a day (tid) as needed (prn) Active 1 tablet Vitamin D (Ergocalciferol) [facility] 92774657843 64004 UNIT Orally twice per week Active 1 capsule 3mL Luer-Lock Syringe NDC 0 Active as directed BuPROPion HCl (XL) [facility] 06108376143 300 MG Orally Once a day Active 1 tablet in the morning Vital Signs Date/Time: May 05, 2018 Weight 146.8 lbs Height 63 in Temperature 97.0 F Cardiac Monitoring Heart Rate 84 /min BMI 26.00 Index Results No Known Results Summary Purpose eClinicalWorks Submission
--- OUTSIDE RECORDS SUMMARY | 2019-02-26 01:29 | XMS REPORT ---
Author Author Zeny Page Organization eClinicalWorks Address Unknown Phone Unavailable Care Team Providers Care Veterinary Medicine Scientist Name Role Phone Zeny Page CP Unavailable [...] Active Problem Other anxiety states 300.09 Active Assessment Pruritic rash L28.2 Active Problem Mixed hyperlipidemia 272.2 Active Problem [...] Instructions Start Date End Date Status Dosage Albuterol Sulfate [facility] 37110145270 (2.5 MG/3ML) 0.083% Inhalation Three times a day prn Active 3 ml ProAir HFA [facility] 58203419427 108 (90 Base) MCG/ACT Inhalation every 4 hrs Active 1-2 puffs as needed Tramadol HCl ND 50927241994 50 mg Orally every 6 hrs prn pain Active 1 tablet Tussionex Pennkinetic ER [facility] 65819327150 10-8 MG/5ML Orally every 12 hrs Jun 18, 2018 Active 5 ml as needed Clonazepam ND 73029202903 1 MG Orally three times a day (tid) as needed (prn) Active 1 tablet Furosemide [facility] 24993858120 20 MG Orally qam prn severe pedal edema Active 1 tablet [place] Thyroid ND 12008277821 120 MG Orally Once a day Active 1 tablet Atenolol ND 41852370585 25 MG Orally twice a day (bid) Active 1 tablet Methocarbamol ND 71347989358 750 MG Orally tid October 18, 2018 February 10, 2019 Active 1-2 tablets METHYLCOBALAMIN (B12) NDC 0 1,000mcg/mL IM qweekly Active 1mL Singulair ND 56649225173 10 mg Orally Once a day Active 1 tablet in the evening Syringe NDC 0 3cc syringe with 23g needle, 1 Active IM injection of Vit B12, once per week Micro-K ND 01025218233 10 MEQ Orally once a day Active 1 capsule HydrOXYzine HCl ND 17241843885 10 mg Orally as directed Active 1-3 tablets tid prn itching Amitriptyline HCl ND 67218803020 25 MG by mouth at bedtime Active 1 to 2 tablet(s) BuPROPion HCl (XL) ND 91012521580 300 MG Orally Once a day Active 1 tablet in the morning 25G 1" Needle NDC 0 Active as directed [place] NDC 89021275914 10-325 MG by mouth every 6 hrs prn Active 1 tablet Citalopram Hydrobromide ND 45958208548 40 MG Orally Once a day Active 1 tablet Simvastatin ND 43281802841 20 mg by mouth at bedtime Active 1 tablet [place] ND 68488398697 10-325 MG Orally every 6 hrs PRN Pain November 12, 2018 February 10, 2019 Active 1 tablet Medrol (Saurabh) NDC 0 4 mg Orally Active as directed 3mL Luer-Lock Syringe NDC 0 Active as directed Vitamin D (Ergocalciferol) ND 17207625342 60666 UNIT Orally twice per week Active 1 capsule [place] ND 10876722611 10-325 MG Orally every 6 hrs PRN Pain November 12, 2018 December 12, 2018 Active 1 tablet HydrOXYzine HCl ND 17332629504 10 mg Orally three times a day (tid) PRN itching November 12, 2018 Active 1-3 tablet(s) Ambien CR ND 89515303979 12.5 MG Orally Once a day Active 1 tablet at bedtime as needed Vital Signs Date/Time: November 12, 2018 Weight 159.4 lbs Height 63 in Temperature 96.8 F Cardiac Monitoring Heart Rate 118 /min BMI 28.23 Index Results No Known Results Summary Purpose eClinicalWorks Submission
--- OUTSIDE RECORDS SUMMARY | 2019-02-26 01:29 | XMS REPORT ---
Author Author Zeny Page [facility] eClinicalWorks Address Unknown Phone Unavailable Care Team Providers Care Business Reporter Name Role Phone Zeny Page CP Unavailable Allergies No Known Allergies Problems Problem Type Condition Code Onset Dates Condition Status Problem Strain of rotator cuff 840.4 Active Problem Methicillin resistant Staphylococcus aureus infection 041.12 Active Problem Dyschromia 709.00 Active Problem B12 deficiency 266.2 Active Problem Anxiety, generalized 300.02 Active Problem Iron deficiency anemia 280.9 Active Problem Displacement of lumbar intervertebral disc 722.10 Active Problem Extrinsic asthma with exacerbation 493.02 Active Problem Acute hip pain 719.45 Active Problem Infective otitis externa 380.10 Active Problem Elevated blood pressure reading 796.2 Active Problem Cough 786.2 Active Problem Heartburn 787.1 Active Problem Hypothyroidism 244.9 Active Problem Vitamin D deficiency 268.9 Active Problem Allergic state 995.3 Active Problem Dizziness 780.4 Active Problem Nausea alone 787.02 Active Problem Solitary pulmonary nodule 793.11 Active Problem 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 Problem Nonspecific abnormal serum enzyme levels 790.5 Active Problem Enlarged lymph nodes 785.6 Active Problem Esophageal reflux 530.81 Active Problem Acute cystitis 595.0 Active Problem Spinal stenosis in cervical region 723.0 Active Problem Cervicalgia 723.1 Active Problem Other specified menopausal and postmenopausal disorder 627.8 Active Problem Mixed hyperlipidemia 272.2 Active Problem Postmenopausal related mood disorder 627.8 October 05, 2009 Active Problem Other specified cardiac dysrhythmias 427.89 Active Problem 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 November 16, 2008 Active Problem Dysfunction of Eustachian tube 381.81 Active Problem Otitis externa of right ear 380.10 Sep 21, 2009 Active Problem Contact blepharoconjunctivitis 372.22 Active Problem GERARDO (generalized anxiety disorder) 300.02 Mar 11, 2007 Active Problem Other anxiety states 300.09 Active Problem Light headedness 780.4 January 09, 2009 Active Problem Acute URI 465.9 December 05, 2009 Active Problem Anxiety as acute reaction to exceptional stress 308.0 Aug 30, 2007 Active Problem 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 Active Problem Dermatitis 692.9 Active Problem Voice disturbance 784.40 Active Problem 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 Active Problem 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 Active Problem Neoplasm of uncertain behavior of skin 238.2 Active Problem Dysthymia 300.4 Aug 16, 2010 Active Problem Blackout 780.2 Active Problem Arthralgia of hip or thigh 719.45 February 21, 2009 Active Problem Pneumonia due to Staphylococcus 482.40 Active Problem Gastro-esophageal reflux 530.81 Aug 24, 2007 Active Problem Earache, otogenic 388.71 Active Problem Labyrinthitis 386.30 Active Problem Cervical dystonia 333.83 May 07, 2007 Active Problem Local infection of skin and subcutaneous tissue 686.9 Active Problem Cervical pain 723.1 Mar 11, 2007 Active Problem Cellulitis and abscess of face 682.0 Active Problem Sinus bradycardia 427.89 Jun 04, 2010 Active Problem Rhomboid muscle pain 729.1 January 19, 2008 Active Problem Bronchitis, acute 466.0 Aug 09, 2013 Active Problem Apudoma of skin 238.2 January 02, 2010 Active Problem Anemia, iron deficiency 280.9 Sep 24, 2010 Active Problem Acquired hypothyroidism 244 Jun 22, 2008 Active Problem Allergic rhinitis due to pollen 477.0 October 05, 2009 Active Problem Chronic pain syndrome 338.4 January 07, 2010 Active Problem Transient insomnia (Transient disorder of initiating or maintaining sleep) 307.41 Mar 11, 2007 Active Problem Toe infection 686.9 December 18, 2008 Active Problem Unspecified labyrinthitis 386.30 January 09, 2009 Active Problem Familial hyperlipoproteinemia, 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 Aug 16, 2010 Active Problem Otogenic pain 388.71 Sep 21, 2009 Active Problem Eczema 692.9 December 18, 2008 Active Problem 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 Sep 20, 2010 Active Problem Lumbar pain 724.2 December 28, 2007 Active Problem Extrinsic asthma, with (acute) exacerbation 493.02 December 05, 2009 Active Problem Acute shoulder pain 719.41 January 19, 2008 Active Problem Allergic reaction 995.3 November 22, 2008 Active Problem Headache 784.0 October 23, 2009 Active Problem Heartburn 787.1 Mar 11, 2007 Active Problem Special screening for malignant neoplasms, colon V76.51 Aug 09, 2013 Active Problem Nausea alone 787.02 December 28, 2008 Active Problem Extrinsic asthma with status asthmaticus 493.01 May 17, 2010 Active Problem Acute frontal sinusitis 461.1 May 03, 2007 Active Problem Pneumonia due to Staphylococcus, unspecified 482.40 October 23, 2009 Active Problem Dyschromia, unspecified 709.00 October 05, 2009 Active Problem Cellulitis of face 682.0 October 23, 2009 Active Problem Acute maxillary sinusitis 461.0 May 03, 2007 Active Problem Spinal stenosis in cervical region 723.0 Jun 17, 2007 Active Problem Syncope and collapse 780.2 Aug 30, 2007 Active Problem Unspecified anemia 285.9 Aug 30, 2010 Active Problem Other thalassemia 282.49 Aug 30, 2010 Active Problem Headache 784.0 Active Problem Swelling, mass, or lump in head and neck 784.2 Aug 24, 2007 Active Problem Enlargement of lymph nodes 785.6 Jun 17, 2007 Active Problem Cough 786.2 December 05, 2009 Active Problem Hyperglycemia (Other abnormal blood chemistry) 790.6 Aug 30, 2010 Active Problem Other nonspecific abnormal serum enzyme levels 790.5 May 22, 2010 Active Problem Mixed hyperlipidemia 272.2 February 19, 2011 Active Problem Other anxiety states 300.09 December 04, 2008 Active Problem Screening for breast cancer (Unspecified breast screening) V76.10 Aug 09, 2013 Active Problem Laboratory examination V72.6 Apr 18, 2011 Active Problem Annual Physical (Routine general medical examination at health care facility) V70.0 October 05, 2009 Active Problem Rotator cuff (capsule) sprain and strain 840.4 December 28, 2007 Active Problem Contact blepharoconjunctivitis 372.22 December 04, 2008 Active Problem Dysfunction of Eustachian tube 381.81 January 14, 2012 Active Problem Low back pain 724.2 Active Problem Anxiety and depression 300.4 Active Problem Essential hypertension, benign 401.1 January 19, 2008 Active Problem Abnormal blood chemistry 790.6 Active Problem Methicillin resistant Staphylococcus aureus 041.12 May 17, 2010 Active Problem Major depressive disorder, single episode, moderate 296.22 January 02, 2010 Active Problem Myalgia and myositis 729.1 Active Problem 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 Mar 11, 2007 Active Problem Anemia 285.9 Active Problem Other staphylococcus infection in conditions classified elsewhere and of unspecified site 041.19 October 23, 2009 Active Problem Elevated blood pressure reading without diagnosis of hypertension 796.2 January 19, 2008 Active Problem Nonspecific (abnormal) findings on radiological and other examination of lung field 793.1 February 17, 2008 Active Problem Reflux esophagitis 530.11 February 17, 2008 Active Problem Acute cystitis 595.0 February 19, 2011 Active Problem Obesity (BMI 35.0-39.9 without comorbidity) E66.9 Active Problem Vitamin D deficiency E55.9 Active Problem Depression F32.9 Active Problem Seasonal allergic rhinitis due to pollen J30.1 Active Problem Mixed hyperlipidemia E78.2 Active Problem Other chronic pain G89.29 Active Problem Unspecified vitamin D deficiency 268.9 Aug 30, 2010 Active Problem Fibromyalgia M79.7 Active Problem Other specified acquired hypothyroidism 244.8 May 03, 2007 Active Problem Other B-complex deficiencies 266.2 Sep 24, 2010 Active Medications No Known Medications Results No Known Results Summary Purpose eClinicalWorks Submission
--- OUTSIDE RECORDS SUMMARY | 2019-02-26 01:29 | XMS REPORT ---
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 Active Assessment Mild intermittent asthma without complication J45.20 Active Problem Esophageal reflux 530.81 Active Assessment B12 deficiency E53.8 Active Problem Cough 786.2 Active Assessment Pedal edema R60.0 Active Problem Cervicalgia 723.1 Active Assessment Insomnia G47.00 Active Problem Spinal stenosis in cervical region 723.0 Active Assessment Fibromyalgia M79.7 Active Problem Vitamin D deficiency 268.9 Active Assessment Depression F32.9 Active Problem 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 Assessment Hypothyroidism E03.9 Active Problem Dizziness 780.4 Active Assessment Seasonal allergies J30.2 Active Problem Nausea alone 787.02 Active Assessment Sinus tachycardia R00.0 Active Problem Cellulitis and abscess of face [...] Active Problem Earache, otogenic 388.71 Active Assessment Low back pain M54.5 Active Assessment Mixed hyperlipidemia E78.2 Active Problem Iron deficiency anemia 280.9 Active [...] Instructions Start Date End Date Status Dosage HydrOXYzine HCl [facility] 45354878970 10 MG Orally as directed Active 1-3 tablets tid prn itching Simvastatin ND 12701222929 20 mg by mouth at bedtime Active 1 tablet Soma NDC 0 350mg Tablet Active Take 1 tablet(s) by mouth tid 25G 1" Needle NDC 0 Active as directed Singulair ND 85937660197 10 mg Orally Once a day Active 1 tablet in the evening [place] ND 31412993232 10-325 MG by mouth every 6 hrs prn Active 1 tablet Vitamin D (Ergocalciferol) [facility] 81366145285 39739 UNIT Orally twice per week Active 1 capsule Syringe NDC 0 3cc syringe with 23g needle, 1" Active IM injection of Vit B12, once per week Tramadol HCl [facility] 00392549227 50 mg Orally every 6 hrs prn pain Active 1 tablet Atenolol ND 10904774504 25 MG Orally twice a day (bid) Active 1 tablet ProAir HFA [facility] 38922765113 108 (90 Base) MCG/ACT Inhalation every 4 hrs Active 1-2 puffs as needed BuPROPion HCl (XL) ND 79265437201 300 MG Orally Once a day Active 1 tablet in the morning Clonazepam ND 30422656462 1 MG Orally three times a day (tid) as needed (prn) Active 1 tablet [place] Thyroid ND 32428406949 120 MG Orally Once a day Active 1 tablet Micro-K [facility] 20082783110 10 MEQ Orally once a day Active 1 capsule Albuterol Sulfate [facility] 03207216745 (2.5 MG/3ML) 0.083% Inhalation Three times a day prn Active 3 ml Amitriptyline HCl ND 42047659081 25 MG by mouth at bedtime Active 1 to 2 tablet(s) 3mL Luer-Lock Syringe NDC 0 Active as directed Citalopram Hydrobromide ND 27501319874 40 MG Orally Once a day Active 1 tablet METHYLCOBALAMIN (B12) NDC 0 1,000mcg/mL IM qweekly Active 1mL Ambien CR ND 52556834310 12.5 MG Orally Once a day Active 1 tablet at bedtime as needed Furosemide ND 69492997173 20 MG Orally qam prn severe pedal edema Active 1 tablet Vital Signs Date/Time: January 29, 2018 Weight 145 lbs Height 63 in Temperature 99.1 F Cardiac Monitoring Heart Rate 80 /min BMI 25.68 Index Results No Known Results Summary Purpose eClinicalWorks Submission
--- OUTSIDE RECORDS SUMMARY | 2019-02-26 01:29 | XMS REPORT ---
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 Active Assessment Recurrent acute serous otitis media of left ear H65.05 Active Problem Headache 784.0 Active Problem Heartburn [...] Active Problem Earache, otogenic 388.71 Active Assessment Generalized pruritus L29.9 Active Assessment Cough R05 Active Problem Iron deficiency anemia 280.9 Active [...] Date End Date Status Dosage Tramadol HCl [facility] 53655432592 50 mg Orally every 6 hrs prn pain Active 1 tablet Syringe ND 0 3cc syringe with 23g needle, 1 Active IM injection of Vit B12, once per week Simvastatin ND 02793913104 20 mg by mouth at bedtime Active 1 tablet Amitriptyline HCl ND 21257675075 25 MG by mouth at bedtime Active 1 to 2 tablet(s) Cefdinir ND 80875791122 300 MG Orally qd Jun 18, 2018 Jun 28, 2018 Active 2 capsules Ambien CR [facility] 63126144310 12.5 MG Orally Once a day Active 1 tablet at bedtime as needed Clonazepam ND 06829401990 1 MG Orally three times a day (tid) as needed (prn) Active 1 tablet Vitamin D (Ergocalciferol) [facility] 31212909881 48429 UNIT Orally twice per week Active 1 capsule ProAir HFA [facility] 01455057524 108 (90 Base) MCG/ACT Inhalation every 4 hrs Active 1-2 puffs as needed Soma NDC 0 350mg Tablet Active Take 1 tablet(s) by mouth tid Atenolol [facility] 73823089570 25 MG Orally twice a day (bid) Active 1 tablet METHYLCOBALAMIN (B12) NDC 0 1,000mcg/mL IM qweekly Active 1mL Furosemide ND 23105150912 20 MG Orally qam prn severe pedal edema Active 1 tablet Micro-K [facility] 82802676239 10 MEQ Orally once a day Active 1 capsule [place] ND 61181404366 10-325 MG by mouth every 6 hrs prn Active 1 tablet BuPROPion HCl (XL) ND 39667367726 300 MG Orally Once a day Active 1 tablet in the morning Tussionex Pennkinetic ER [facility] 50823339640 10-8 MG/5ML Orally every 12 hrs Jun 18, 2018 Active 5 ml as needed Singulair [facility] 96129577579 10 mg Orally Once a day Active 1 tablet in the evening Citalopram Hydrobromide ND 49144838539 40 MG Orally Once a day Active 1 tablet [place] Thyroid ND 71643135756 120 MG Orally Once a day Active 1 tablet 25G 1" Needle NDC 0 Active as directed Albuterol Sulfate [facility] 62982935617 (2.5 MG/3ML) 0.083% Inhalation Three times a day prn Active 3 ml 3mL Luer-Lock Syringe NDC 0 Active as directed HydrOXYzine HCl [facility] 02943147879 10 mg Orally as directed Active 1-3 tablets tid prn itching Vital Signs Date/Time: Jun 18, 2018 Weight 152 lbs Height 63 in Temperature 97.9 F Cardiac Monitoring Heart Rate 102 /min BMI 26.92 Index Results No Known Results Summary Purpose eClinicalWorks Submission
--- OUTSIDE RECORDS SUMMARY | 2019-02-26 01:30 | XMS REPORT ---
Author Author Zeny Page Organization eClinicalWorks Address Unknown Phone Unavailable Care Team Providers Care Pricer Bagger Name Role Phone Zeny Page CP Unavailable [...] Assessment Low back pain M54.5 Active Problem Iron deficiency anemia 280.9 Active [...] Instructions Start Date End Date Status Dosage Methocarbamol NDC 09653320347 750 MG Orally tid October 18, 2018 November 17, 2018 Active 1-2 tablets Soma NDC 0 350mg Tablet Inactive Take 1 tablet(s) by mouth tid Results No Known Results Summary Purpose eClinicalWorks Submission
--- OUTSIDE RECORDS SUMMARY | 2019-02-26 01:30 | XMS REPORT ---
Author Author Zeny Page [facility] eClinicalWorks Address Unknown Phone Unavailable Care Team Providers Care Magazine Filler Name Role Phone Zeny Page Unavailable Encounters Encounter Location Date Soma prescription Juventino Be MD [facility] December 09, 2015 Clinical Advice During Business Hours Juventino Be MD [facility] January 07, 2016 Medicine Refills Juventino Be MD [facility] February 07, 2016 Problems Problem Type Condition ICD-9 Code Onset Dates Condition Status Problem Other specified menopausal and postmenopausal disorder 627.8 Active Problem Cellulitis and abscess of face 682.0 Active Problem Earache, otogenic 388.71 Active Problem Acute cystitis 595.0 Active Problem Labyrinthitis 386.30 Active Problem Dysfunction of Eustachian tube 381.81 Active Problem Infective otitis externa 380.10 Active Problem Contact blepharoconjunctivitis 372.22 Active Problem 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 Active Problem 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 Active Problem Other anxiety states 300.09 Active Problem Vitamin D deficiency 268.9 Active Problem Neoplasm of uncertain behavior of skin 238.2 Active Problem Iron deficiency anemia 280.9 Active Problem Anemia 285.9 Active Problem Pneumonia due to Staphylococcus 482.40 Active Problem B12 deficiency 266.2 Active Problem Dizziness 780.4 Active Problem Extrinsic asthma with exacerbation 493.02 Active Problem Methicillin resistant Staphylococcus aureus infection 041.12 Active Problem Blackout 780.2 Active Problem Other specified cardiac dysrhythmias 427.89 Active Problem Allergic state 995.3 Active Problem Heartburn 787.1 Mar 11, 2007 Active Problem 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 Mar 11, 2007 Active Problem GERARDO (generalized anxiety disorder) 300.02 Mar 11, 2007 Active Problem Cervical pain 723.1 Mar 11, 2007 Active Problem Transient insomnia (Transient disorder of initiating or maintaining sleep) 307.41 Mar 11, 2007 Active Problem Elevated blood pressure reading 796.2 Active Problem Screening for breast cancer (Unspecified breast screening) V76.10 Aug 09, 2013 Active Problem Solitary pulmonary nodule 793.11 Active Problem Abnormal blood chemistry 790.6 Active Problem Nonspecific abnormal serum enzyme levels 790.5 Active Problem Strain of rotator cuff 840.4 Active Problem Voice disturbance 784.40 Active Problem Enlarged lymph nodes 785.6 Active Problem Cough 786.2 Active Problem Nausea alone 787.02 Active Problem Heartburn 787.1 Active Problem Anemia, iron deficiency 280.9 Sep 24, 2010 Active Problem Dermatitis 692.9 Active Problem Other B-complex deficiencies 266.2 Sep 24, 2010 Active Problem Local infection of skin and subcutaneous tissue 686.9 Active Problem 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 Sep 20, 2010 Active Problem Spinal stenosis in cervical region 723.0 Active Problem Displacement of lumbar intervertebral disc 722.10 Active Problem Laboratory examination V72.6 Apr 18, 2011 Active Problem Headache 784.0 Active Problem Acute cystitis 595.0 February 19, 2011 Active Problem Cervicalgia 723.1 Active Problem Mixed hyperlipidemia 272.2 February 19, 2011 Active Problem Dysthymia 300.4 Aug 16, 2010 Active Problem Special screening for malignant neoplasms, colon V76.51 Aug 09, 2013 Active Problem Bronchitis, acute 466.0 Aug 09, 2013 Active Problem Dysfunction of Eustachian tube 381.81 January 14, 2012 Active Problem Contact blepharoconjunctivitis 372.22 December 04, 2008 Active Problem Allergic reaction 995.3 November 22, 2008 Active Problem 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6 Aug 30, 2010 Active Problem Rhomboid muscle pain 729.1 January 19, 2008 Active Problem Sinus bradycardia 427.89 Jun 04, 2010 Active Problem Familial hyperlipoproteinemia, 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 Aug 16, 2010 Active Problem Extrinsic asthma with status asthmaticus 493.01 May 17, 2010 Active Problem Other nonspecific abnormal serum enzyme levels 790.5 May 22, 2010 Active Problem Chronic pain syndrome 338.4 January 07, 2010 Active Problem Methicillin resistant Staphylococcus aureus 041.12 May 17, 2010 Active Problem Acute shoulder pain 719.41 January 19, 2008 Active Problem Rotator cuff (capsule) sprain and strain 840.4 December 28, 2007 Active Problem Essential hypertension, benign 401.1 January 19, 2008 Active Problem Syncope and collapse 780.2 Aug 30, 2007 Active Problem Gastro-esophageal reflux 530.81 Aug 24, 2007 Active Problem Lumbar pain 724.2 December 28, 2007 Active Problem Anxiety as acute reaction to exceptional stress 308.0 Aug 30, 2007 Active Problem Spinal stenosis in cervical region 723.0 Jun 17, 2007 Active Problem Swelling, mass, or lump in head and neck 784.2 Aug 24, 2007 Active Problem Enlargement of lymph nodes 785.6 Jun 17, 2007 Active Problem Cervical dystonia 333.83 May 07, 2007 Active Problem Acute frontal sinusitis 461.1 May 03, 2007 Active Problem Other specified acquired hypothyroidism 244.8 May 03, 2007 Active Problem Acute maxillary sinusitis 461.0 May 03, 2007 Active Problem Acute URI 465.9 December 05, 2009 Active Problem Headache 784.0 October 23, 2009 Active Problem Pneumonia due to Staphylococcus, unspecified 482.40 October 23, 2009 Active Problem Other staphylococcus infection in conditions classified elsewhere and of unspecified site 041.19 October 23, 2009 Active Problem Apudoma of skin 238.2 January 02, 2010 Active Problem Major depressive disorder, single episode, moderate 296.22 January 02, 2010 Active Problem Extrinsic asthma, with (acute) exacerbation 493.02 December 05, 2009 Active Problem Cough 786.2 December 05, 2009 Active Problem Cellulitis of face 682.0 October 23, 2009 Active Problem Dyschromia, unspecified 709.00 October 05, 2009 Active Problem Mixed hyperlipidemia 272.2 Active Problem Dyschromia 709.00 Active Problem Annual Physical (Routine general medical examination at health care facility) V70.0 October 05, 2009 Active Problem 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 Active Problem Light headedness 780.4 January 09, 2009 Active Problem Nausea alone 787.02 December 28, 2008 Active Problem Esophageal reflux 530.81 Active Problem Arthralgia of hip or thigh 719.45 February 21, 2009 Active Problem Acute hip pain 719.45 Active Problem Unspecified labyrinthitis 386.30 January 09, 2009 Active Problem Otogenic pain 388.71 Sep 21, 2009 Active Problem Otitis externa of right ear 380.10 Sep 21, 2009 Active Problem Postmenopausal related mood disorder 627.8 October 05, 2009 Active Problem Allergic rhinitis due to pollen 477.0 October 05, 2009 Active Problem Hypothyroidism 244.9 Active Problem Anxiety, generalized 300.02 Active Problem Mixed hyperlipidemia E78.2 Active Problem 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 Do you use supplements Yes Multivitamin December 07, 2015 Tobacco Use: . Are you a: never smoker December 07, 2015 Caffeine intake? . Status: Yes, What type: Coffee 1-3 cups per day December 07, 2015 Do you drink alcohol? . Status: No December 07, 2015 Summary Purpose eClinicalWorks Submission
--- OUTSIDE RECORDS SUMMARY | 2019-02-26 01:30 | XMS REPORT ---
Author Author Zeny Page [facility] eClinicalWorks Address Unknown Phone Unavailable Care Team Providers Care Asphalt Roller Operator Name Role Phone Zeny Page Unavailable Encounters Encounter Location Date Soma prescription Juventino Be MD [facility] December 09, 2015 Clinical Advice During Business Hours Juventino Be MD [facility] January 07, 2016 Problems Problem Type Condition ICD-9 [...] Date End Date Status Dosage Ativan MEDISPAN [address]-35 1 MG by mouth three times a [...]
--- OUTSIDE RECORDS SUMMARY | 2019-02-26 01:30 | XMS REPORT ---
Author Author Zeny Page [facility] eClinicalWorks Address Unknown Phone Unavailable Care Team Providers Care Rose Grading Supervisor Name Role Phone Zeny Page Unavailable Encounters Encounter Location Date Soma prescription Juventino Be MD [facility] December 09, 2015 Problems Problem Type Condition ICD-9 Code Onset [...] Start Date End Date Status Dosage Soma MEDISPAN [address]-10 350 MG by mouth TID November 22, 2015 Active 1 tablet Social History Social History Element [...]
--- OUTSIDE RECORDS SUMMARY | 2019-02-26 01:31 | XMS REPORT ---
Author Author Zeny Page [facility] eClinicalWorks Address Unknown Phone Unavailable Care Team Providers Care Truck Engine Technician Name Role Phone Zeny Page Unavailable Encounters Encounter Location Date Medication Refil Juventino Be MD [facility] December 07, 2015 Medicine Refills Juventino Be MD [facility] Apr 10, 2016 Medicine Refills Juventino Be MD [facility] May 08, 2016 Medication Refil Juventino Be MD [facility] Mar 12, 2016 Soma prescription Juventino Be MD [facility] December 09, 2015 Clinical Advice During Business Hours Juventino Be MD [facility] January 07, 2016 Medicine Refills Juventino Be MD [facility] February 07, 2016 Medicine Refills Juventino Be MD 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 Active Problem 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 Active Problem Other anxiety states 300.09 Active Problem Iron deficiency anemia 280.9 Active Problem B12 deficiency 266.2 Active Problem Vitamin D deficiency 268.9 Active Problem Neoplasm of uncertain behavior of skin 238.2 Active Problem Pneumonia due to Staphylococcus 482.40 Active Problem Blackout 780.2 Active Problem Dizziness 780.4 Active Problem Anemia 285.9 Active Problem Methicillin resistant Staphylococcus aureus infection 041.12 Active Problem Mixed hyperlipidemia 272.2 Active Problem Other specified cardiac dysrhythmias 427.89 Active Problem Extrinsic asthma with exacerbation 493.02 Active Problem Strain of rotator cuff 840.4 Active Problem Allergic state 995.3 Active Problem Transient insomnia (Transient disorder of initiating or maintaining sleep) 307.41 Mar 11, 2007 Active Problem 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 Mar 11, 2007 Active Problem Heartburn 787.1 Mar 11, 2007 Active Problem Cervical pain 723.1 Mar 11, 2007 Active Problem Screening for breast cancer (Unspecified breast screening) V76.10 Aug 09, 2013 Active Problem Solitary pulmonary nodule 793.11 Active Problem Special screening for malignant neoplasms, colon V76.51 Aug 09, 2013 Active Problem Abnormal blood chemistry 790.6 Active Problem Nonspecific abnormal serum enzyme levels 790.5 Active Assessment Anxiety F41.9 Active Problem Heartburn 787.1 Active Problem Elevated blood pressure reading 796.2 Active Problem Headache 784.0 Active Problem Voice disturbance 784.40 Active Problem Enlarged lymph nodes 785.6 Active Problem Cough 786.2 Active Problem Nausea alone 787.02 Active Problem Other B-complex deficiencies 266.2 Sep 24, 2010 Active Problem Local infection of skin and subcutaneous tissue 686.9 Active Problem 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 Sep 20, 2010 Active Problem Cellulitis and abscess of face 682.0 Active Problem Unspecified anemia 285.9 Aug 30, 2010 Active Problem Displacement of lumbar intervertebral disc 722.10 Active Problem Dermatitis 692.9 Active Problem Acute cystitis 595.0 February 19, 2011 Active Problem Cervicalgia 723.1 Active Problem Mixed hyperlipidemia 272.2 February 19, 2011 Active Problem Spinal stenosis in cervical region 723.0 Active Problem Dysthymia 300.4 Aug 16, 2010 Active Problem Anemia, iron deficiency 280.9 Sep 24, 2010 Active Problem Bronchitis, acute 466.0 Aug 09, 2013 Active Problem Dysfunction of Eustachian tube 381.81 January 14, 2012 Active Problem Laboratory examination V72.6 Apr 18, 2011 Active Problem Allergic reaction 995.3 November 22, 2008 Active Problem 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 November 16, 2008 Active Problem Acquired hypothyroidism 244 Jun 22, 2008 Active Problem Nonspecific (abnormal) findings on radiological and other examination of lung field 793.1 February 17, 2008 Active Problem Hyperglycemia (Other abnormal blood chemistry) 790.6 Aug 30, 2010 Active Problem Reflux esophagitis 530.11 February 17, 2008 Active Problem Unspecified vitamin D deficiency 268.9 Aug 30, 2010 Active Problem Elevated blood pressure reading without diagnosis of hypertension 796.2 January 19, 2008 Active Problem Familial hyperlipoproteinemia, 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 Aug 16, 2010 Active Problem Rhomboid muscle pain 729.1 January 19, 2008 Active Problem Other thalassemia 282.49 Aug 30, 2010 Active Problem Acute shoulder pain 719.41 January 19, 2008 Active Problem Other nonspecific abnormal serum enzyme levels 790.5 May 22, 2010 Active Problem Sinus bradycardia 427.89 Jun 04, 2010 Active Problem Methicillin resistant Staphylococcus aureus 041.12 May 17, 2010 Active Problem Extrinsic asthma with status asthmaticus 493.01 May 17, 2010 Active Problem Apudoma of skin 238.2 January 02, 2010 Active Problem Chronic pain syndrome 338.4 January 07, 2010 Active Problem Essential hypertension, benign 401.1 January 19, 2008 Active Problem Lumbar pain 724.2 December 28, 2007 Active Problem Rotator cuff (capsule) sprain and strain 840.4 December 28, 2007 Active Problem Gastro-esophageal reflux 530.81 Aug 24, 2007 Active Problem Swelling, mass, or lump in head and neck 784.2 Aug 24, 2007 Active Problem Anxiety as acute reaction to exceptional stress 308.0 Aug 30, 2007 Active Problem Syncope and collapse 780.2 Aug 30, 2007 Active Problem Acute maxillary sinusitis 461.0 May 03, 2007 Active Problem Enlargement of lymph nodes 785.6 Jun 17, 2007 Active Problem Spinal stenosis in cervical region 723.0 Jun 17, 2007 Active Problem GERARDO (generalized anxiety disorder) 300.02 Mar 11, 2007 Active Problem Cervical dystonia 333.83 May 07, 2007 Active Problem Acute frontal sinusitis 461.1 May 03, 2007 Active Problem Other specified acquired hypothyroidism 244.8 May 03, 2007 Active Problem Headache 784.0 October 23, 2009 Active Problem Pneumonia due to Staphylococcus, unspecified 482.40 October 23, 2009 Active Problem Other staphylococcus infection in conditions classified elsewhere and of unspecified site 041.19 October 23, 2009 Active Problem Cellulitis of face 682.0 October 23, 2009 Active Problem Major depressive disorder, single episode, moderate 296.22 January 02, 2010 Active Problem Extrinsic asthma, with (acute) exacerbation 493.02 December 05, 2009 Active Problem Cough 786.2 December 05, 2009 Active Problem Acute URI 465.9 December 05, 2009 Active Problem Dyschromia, unspecified 709.00 October 05, 2009 Active Problem Annual Physical (Routine general medical examination at health care facility) V70.0 October 05, 2009 Active Problem Dyschromia 709.00 Active Problem 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 Active Problem Postmenopausal related mood disorder 627.8 October 05, 2009 Active Problem Acute hip pain 719.45 Active Problem Nausea alone 787.02 December 28, 2008 Active Problem Toe infection 686.9 December 18, 2008 Active Problem Myalgia and myositis 729.1 Active Problem Unspecified labyrinthitis 386.30 January 09, 2009 Active Problem Esophageal reflux 530.81 Active Problem Light headedness 780.4 January 09, 2009 Active Problem Otitis externa of right ear 380.10 Sep 21, 2009 Active Problem Arthralgia of hip or thigh 719.45 February 21, 2009 Active Problem Allergic rhinitis due to pollen 477.0 October 05, 2009 Active Problem Otogenic pain 388.71 Sep 21, 2009 Active Problem Mixed hyperlipidemia E78.2 Active Problem Hypothyroidism 244.9 Active Problem Seasonal allergic rhinitis due to pollen J30.1 Active Problem Anxiety and depression 300.4 Active Problem 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 . Status: No Jun 11, 2016 Summary Purpose eClinicalWorks Submission
--- OUTSIDE RECORDS SUMMARY | 2019-02-26 01:31 | XMS REPORT ---
Author Author Zeny Page [facility] eClinicalWorks Address Unknown Phone Unavailable Care Team Providers Care Construction Producer Name Role Phone Zeny Page Unavailable Encounters Encounter Location Date Medication Refil Juventino Be MD [facility] December 07, 2015 Medicine Refills Juventino Be MD [facility] Apr 10, 2016 Soma prescription Juventino Be MD [facility] December 09, 2015 Clinical Advice During Business Hours Juventino Be MD [facility] January 07, 2016 Medicine Refills Juventino Be MD [facility] February 07, 2016 Problems Problem Type Condition [...] Date End Date Status Dosage Ativan MEDISPAN [address]-89 1 MG by mouth three times a day (tid) as needed (prn) Active 1/2 to 1 tablet Social History Social History Element Qualifiers Date Reported Supplements . Do you use supplements Yes Multivitamin Mar 12, 2016 Tobacco Use: . Are you a: never smoker Mar 12, 2016 Caffeine intake? . Status: No Mar 12, 2016 Do you drink alcohol? . Status: No Mar 12, 2016 Summary Purpose eClinicalWorks Submission
--- OUTSIDE RECORDS SUMMARY | 2019-02-26 01:31 | XMS REPORT ---
Author Author Juventino Be eClinicalWorks Address Unknown Phone Unavailable Care Team Providers Care Fiberglass Insulation Installer Name Role Phone Juventino Be CP Unavailable Encounters Encounter Location Date Medication Refil Juventino Be MD [facility] December 07, 2015 Medicine Refills Juventino Be MD [facility] Apr 10, 2016 Medicine Refills Juventino Be MD [facility] May 08, 2016 Medication Refil Juventino Be MD [facility] Mar 12, 2016 Soma prescription Juventino Be MD [facility] December 09, 2015 Clinical Advice During Business Hours Juventino Be MD [facility] January 07, 2016 Medicine Refills Juventino Be MD [facility] February 07, 2016 Medicine Refills Juventino Be MD [facility] Aug 10, 2016 Medicine Refills Juventino Be MD [facility] Jul 10, 2016 Medication Refil Juventino Be MD [facility] Jun 11, 2016 Unknown Juventino Be MD [facility] Aug 13, 2016 Medicine Refills Juventino Be MD [facility] Aug 10, 2016 Re:RE:Medicine Refills Juventino Be MD [facility] Aug 12, 2016 Problems Problem Type Condition ICD-9 Code Onset Dates Condition Status Problem Labyrinthitis 386.30 Active Problem Earache, otogenic 388.71 Active Problem Infective otitis externa 380.10 Active Problem Dysfunction of Eustachian tube 381.81 Active Problem Contact blepharoconjunctivitis 372.22 Active Problem 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 Active Problem 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 Active Problem Other anxiety states 300.09 Active Problem Iron deficiency anemia 280.9 Active Problem Neoplasm of uncertain behavior of skin 238.2 Active Problem Vitamin D deficiency 268.9 Active Problem Anemia 285.9 Active Problem Dizziness 780.4 Active Problem B12 deficiency 266.2 Active Problem Other specified cardiac dysrhythmias 427.89 Active Problem Extrinsic asthma with exacerbation 493.02 Active Problem Pneumonia due to Staphylococcus 482.40 Active Problem Blackout 780.2 Active Problem Dyschromia 709.00 Active Problem 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 Active Problem Methicillin resistant Staphylococcus aureus infection 041.12 Active Problem Mixed hyperlipidemia 272.2 Active Problem Solitary pulmonary nodule 793.11 Active Problem Elevated blood pressure reading 796.2 Active Problem Heartburn 787.1 Mar 11, 2007 Active Problem Cervical pain 723.1 Mar 11, 2007 Active Problem Strain of rotator cuff 840.4 Active Problem Allergic state 995.3 Active Problem Bronchitis, acute 466.0 Aug 09, 2013 Active Problem Nonspecific abnormal serum enzyme levels 790.5 Active Problem Dysfunction of Eustachian tube 381.81 January 14, 2012 Active Problem Heartburn 787.1 Active Problem Screening for breast cancer (Unspecified breast screening) V76.10 Aug 09, 2013 Active Problem Nausea alone 787.02 Active Problem Special screening for malignant neoplasms, colon V76.51 Aug 09, 2013 Active Problem Cough 786.2 Active Problem Abnormal blood chemistry 790.6 Active Problem Spinal stenosis in cervical region 723.0 Active Problem Cervicalgia 723.1 Active Problem Headache 784.0 Active Problem Voice disturbance 784.40 Active Problem Enlarged lymph nodes 785.6 Active Problem Unspecified anemia 285.9 Aug 30, 2010 Active Problem Other specified menopausal and postmenopausal disorder 627.8 Active Problem Unspecified vitamin D deficiency 268.9 Aug 30, 2010 Active Problem Acute cystitis 595.0 Active Problem Hyperglycemia (Other abnormal blood chemistry) 790.6 Aug 30, 2010 Active Problem Local infection of skin and subcutaneous tissue 686.9 Active Problem Cellulitis and abscess of face 682.0 Active Problem Dysthymia 300.4 Aug 16, 2010 Active Problem Displacement of lumbar intervertebral disc 722.10 Active Problem Anemia, iron deficiency 280.9 Sep 24, 2010 Active Problem Dermatitis 692.9 Active Problem Other B-complex deficiencies 266.2 Sep 24, 2010 Active Problem 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 Sep 20, 2010 Active Problem Laboratory examination V72.6 Apr 18, 2011 Active Problem Acute cystitis 595.0 February 19, 2011 Active Problem Mixed hyperlipidemia 272.2 February 19, 2011 Active Problem Acquired hypothyroidism 244 Jun 22, [...] moderate 296.22 January 02, 2010 Active Problem Lumbar pain 724.2 December 28, 2007 Active Problem Syncope and collapse 780.2 Aug 30, 2007 Active Problem Anxiety as acute reaction to exceptional stress 308.0 Aug 30, 2007 Active Problem Enlargement of lymph nodes 785.6 Jun 17, 2007 Active Problem Spinal stenosis in cervical region 723.0 Jun 17, 2007 Active Problem Gastro-esophageal reflux 530.81 Aug 24, 2007 Active Problem Swelling, mass, or lump in head and neck 784.2 Aug 24, 2007 Active Problem Acute frontal sinusitis 461.1 May 03, 2007 Active Problem Acute maxillary sinusitis 461.0 May 03, 2007 Active Problem Other specified acquired hypothyroidism 244.8 May 03, 2007 Active Problem Transient insomnia (Transient disorder of initiating or maintaining sleep) 307.41 Mar 11, 2007 Active Problem 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 Mar 11, 2007 Active Problem GERARDO (generalized anxiety disorder) 300.02 Mar 11, 2007 Active Problem Cervical dystonia 333.83 May 07, 2007 Active Problem Other staphylococcus infection in conditions classified elsewhere and of unspecified site 041.19 October 23, 2009 Active Problem Cellulitis of face 682.0 October 23, 2009 Active Problem Dyschromia, unspecified 709.00 October 05, 2009 Active Problem Annual Physical (Routine general medical examination at health care facility) V70.0 October 05, 2009 Active Problem Cough 786.2 December 05, 2009 Active Problem Acute URI 465.9 December 05, 2009 Active Problem Headache 784.0 October 23, 2009 Active Problem Pneumonia due to Staphylococcus, unspecified 482.40 October 23, 2009 Active Problem Postmenopausal related mood disorder 627.8 October 05, 2009 Active Problem Allergic rhinitis due to pollen 477.0 October 05, 2009 Active Problem Acute hip pain 719.45 Active Problem Esophageal reflux 530.81 Active Problem Otogenic pain 388.71 Sep 21, 2009 Active Problem Myalgia and myositis 729.1 Active Problem Eczema 692.9 December 18, 2008 Active Problem Other anxiety states 300.09 December 04, 2008 Active Problem Anxiety and depression 300.4 Active Problem Nausea alone 787.02 December 28, 2008 Active Problem 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 Problem Toe infection 686.9 December 18, 2008 Active Problem Unspecified labyrinthitis 386.30 January 09, 2009 Active Problem Light headedness 780.4 January 09, 2009 Active Problem Otitis externa of right ear 380.10 Sep 21, 2009 Active Problem Arthralgia of hip or thigh 719.45 February 21, 2009 Active Problem Fibromyalgia M79.7 Active Problem Seasonal allergic rhinitis due to pollen J30.1 Active Problem Other chronic pain G89.29 Active Problem Anxiety, generalized 300.02 Active Problem Low back pain 724.2 Active Problem Mixed hyperlipidemia E78.2 Active Problem Contact blepharoconjunctivitis 372.22 December 04, 2008 Active Problem Hypothyroidism 244.9 Active Problem 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 November 16, 2008 Active Problem Allergic reaction 995.3 November 22, 2008 Active Social History Social History Element Qualifiers Date Reported Supplements . Do you use supplements Yes Multivitamin Jun 11, 2016 Tobacco Use: . Are you a: never smoker Jun 11, 2016 Caffeine intake? . Status: No Jun 11, 2016 Do you drink alcohol? . Status: No Jun 11, 2016 Summary Purpose eClinicalWorks Submission
--- OUTSIDE RECORDS SUMMARY | 2019-02-26 01:31 | XMS REPORT ---
Author Author Zeny Page [facility] eClinicalWorks Address Unknown Phone Unavailable Care Team Providers Care Veterinary Parasitologist Name Role Phone Zeny Page Unavailable Allergies, Adverse Reactions, Alerts Substance Reaction Event Type Ibuprofen Info Not Available Drug Allergy Diflunisal Info Not Available Drug Allergy Bystolic Info Not Available Drug Allergy Encounters Encounter Location Date Medication Refil Juventino Be MD [facility] December 07, 2015 Medicine Refills Juventino Be MD [facility] Apr 10, 2016 Medicine Refills Juventino Be MD [facility] May 08, 2016 Medication Refil Juventino Be MD [facility] Mar 12, 2016 Soma prescription Juventino Be MD [facility] December 09, 2015 Clinical Advice During Business Hours Juventino Be MD [facility] January 07, 2016 Medicine Refills Juventino Be MD [facility] February 07, 2016 Problems Problem Type Condition [...] Active Problem Abnormal blood chemistry 790.6 Active Assessment Chronic urticaria L50.8 Active Problem Nonspecific abnormal serum enzyme levels 790.5 Active Assessment Hypothyroidism E03.9 Active Problem Heartburn 787.1 Active Assessment B12 deficiency E53.8 Active Assessment Anxiety F41.9 Active Assessment Insomnia G47.00 Active Assessment Low back pain M54.5 Active Problem Elevated blood pressure reading 796.2 Active Assessment Seasonal allergic rhinitis due to pollen J30.1 Active Problem Headache 784.0 Active Problem Voice [...] Date End Date Status Dosage Ativan MEDISPAN [address]-87 1 MG by mouth three times a day (tid) as needed (prn) Active 1/2 to 1 tablet Simvastatin MEDISPAN [address]-14 20 mg by mouth at bedtime Active 1 tablet Tramadol HCl MEDISPAN [address]-33 50 mg Orally every 6 hrs prn pain Active 1 tablet [place] Thyroid MEDISPAN [address]-10 15 MG Orally Once a day May 30, 2015 Active 1 tablet on an empty stomach Amitriptyline HCl MEDISPAN [address]-49 25 MG by mouth at bedtime Active 1 to 2 tablet(s) HydrOXYzine HCl MEDISPAN [address]-25 10 mg Orally three times a day (tid) prn itching Jun 01, 2015 Active 1 tablet ProAir HFA [facility] [address]-76 108 (90 Base) MCG/ACT Inhalation q 4-6 hr prn wheezing/SOB/cough Active 1 - 2 puffs Xyzal [facility] [address]-33 5 MG Orally Once a day Mar 12, 2016 Jun 10, 2016 Active 1 tablet in the evening [place] [facility] [address]-38 10-325 MG by mouth every 6 hrs prn Active 1 tablet Singulair [facility] [address]-39 10 mg Orally Once a day December 07, 2015 Active 1 tablet in the evening Citalopram Hydrobromide [facility] [address]-84 40 mg by mouth daily Active 1 tablet Vitamin D2 [facility] 70493-71471 50,000 by mouth once a week Active 1 capsule by mouth once a week Albuterol Sulfate [facility] [address]-59 (2.5 MG/3ML) 0.083% Inhalation by nebulizer qid as directed Active 1 vial(s) Syringe Unknown 0 3cc syringe with 23g needle, 1" Jul 16, 2012 Active IM injection of Vit B12, once per week Cyanocobalamin [facility] [address]-07 1000 MCG/ML intramuscularly once a week as directed Active 1 ml BusPIRone HCl [facility] [address]-86 15 MG Orally Twice a day for 1 week and the 1 tablet twice a day Inactive 1/2 half tablet Soma Unknown 0 350mg Tablet Apr 06, 2009 Active Take 1 tablet(s) by mouth tid Micro-K [facility] [address]-14 10 MEQ Orally once a day Active 1 capsule Ambien CR [facility] [address]-93 6.25 MG Orally Once a day Active 1 tablet at bedtime as needed [place]aring Thyroid [facility] [address]-26 60 MG Orally Once a day Active 1 tablet on an empty stomach Atenolol [facility] [address]-16 50 mg by mouth qam and 1/2 po qpm Active 1 tablet Hydrochlorothiazide [facility] [address]-98 25 MG Orally Once a day in the morning Active 1 tablet Social History Social History Element Qualifiers Date Reported Supplements . Do you use supplements Yes Multivitamin Mar 12, 2016 Tobacco Use: . Are you a: never smoker Mar 12, 2016 Caffeine intake? . Status: No Mar 12, 2016 Do you drink alcohol? . Status: No Mar 12, 2016 Vital Signs Date/Time: Mar 12, 2016 Weight 197 lbs Height 63 in Temperature 98.0 F Cardiac Monitoring Heart Rate 79 /min Immunizations Vaccine Administration Date Inj. Dexamethasone Sod Phos 1mg Mar 12, 2016 Summary Purpose eClinicalWorks Submission
--- OUTSIDE RECORDS SUMMARY | 2019-02-26 01:31 | XMS REPORT ---
Author Author Zeny Page [facility] eClinicalWorks Address Unknown Phone Unavailable Care Team Providers Care Sales Agent Financial Report Service Name Role Phone Zeny Page Unavailable Encounters Encounter Location Date Medication Refil Juventino Be MD [facility] December 07, 2015 Medicine Refills Juventino Be MD [facility] Apr 10, 2016 Medicine Refills Juventino Be MD [facility] May 08, 2016 Soma prescription Juventino Be MD [facility] December 09, 2015 Clinical Advice During Business Hours Juventino Be MD [facility] January 07, 2016 Medicine Refills Juventino Be MD [facility] February 07, 2016 Problems Problem Type [...] Start Date End Date Status Dosage Ativan [facility] [address]-00 1 MG by mouth three times a [...]
--- OUTSIDE RECORDS SUMMARY | 2019-02-26 01:31 | XMS REPORT ---
Author Author Zeny Page [facility] eClinicalWorks Address Unknown Phone Unavailable Care Team Providers Care Commercial Shrimping Captain Name Role Phone Zeny Page Unavailable Allergies, Adverse Reactions, Alerts Substance Reaction Event Type Ibuprofen Info Not Available Drug Allergy Diflunisal Info Not Available Drug Allergy Bystolic Info Not Available Drug Allergy Encounters Encounter Location Date Medication Refil Juventino Be MD [facility] December 07, 2015 Soma prescription Juventino Be MD [facility] December 09, 2015 Clinical Advice During Business Hours Juventino Be MD [facility] January 07, 2016 Medicine Refills Juventino Be MD [facility] February 07, 2016 Problems Problem Type [...] Problem Other anxiety states 300.09 Active Assessment Insomnia G47.00 Active Problem Vitamin D deficiency 268.9 Active Problem Neoplasm of uncertain behavior of skin 238.2 Active Problem Iron deficiency anemia 280.9 Active Problem Anemia 285.9 Active Problem Pneumonia due to Staphylococcus 482.40 Active Problem B12 deficiency 266.2 Active Problem Dizziness 780.4 Active Problem Extrinsic asthma with exacerbation 493.02 Active Problem Methicillin resistant Staphylococcus aureus infection 041.12 Active Assessment Pedal edema R60.0 Active Problem Blackout 780.2 Active Assessment Sinus tachycardia R00.0 Active Problem Other specified cardiac dysrhythmias 427.89 [...] maintaining sleep) 307.41 Mar 11, 2007 Active Assessment Mixed hyperlipidemia E78.2 Active Problem Elevated blood pressure reading 796.2 Active Problem Screening for breast cancer (Unspecified breast screening) V76.10 Aug 09, 2013 Active Problem Solitary pulmonary nodule 793.11 Active Assessment Seasonal allergies J30.2 Active Problem Abnormal blood chemistry 790.6 Active Assessment Vitamin D deficiency E55.9 Active Problem Nonspecific abnormal serum enzyme levels 790.5 Active Assessment Anxiety F41.9 Active Assessment Hypothyroidism E03.9 Active Assessment B12 deficiency E53.8 Active Assessment Depression F32.9 Active Problem Strain of rotator cuff 840.4 Active Assessment Low back pain M54.5 Active Assessment Fibromyalgia M79.7 Active Problem Voice disturbance 784.40 Active Problem [...] Date End Date Status Dosage HydrOXYzine HCl [facility] [address]-53 10 mg Orally three times a day (tid) prn itching Jun 01, 2015 Active 1 tablet BusPIRone HCl [facility] [address]-46 15 MG Orally Twice a day for 1 week and the 1 tablet twice a day Aug 24, 2015 Active 1/2 half tablet Vitamin B12 Unknown 0 1,000mcg/1ml Injection October 07, 2013 October 07, 2013 Active Unknown Vitamin D2 [facility] [address]9587 50,000 by mouth once a week November 22, 2015 Active 1 capsule by mouth once a week Syringe Unknown 0 3cc syringe with 23g needle, 1" Jul 16, 2012 October 27, 2012 Active IM injection of Vit B12, once per week [place] Thyroid [facility] [address]-67 60 MG Orally Once a day Active 1 tablet Micro-K [facility] [address]-83 10 MEQ Orally once a day Active 1 capsule Ambien CR [facility] [address]-78 6.25 MG Orally Once a day Active 1 tablet at bedtime as needed Hydrochlorothiazide [facility] [address]-89 25 MG Orally Once a day in the morning May 18, 2015 Active 1 tablet Soma Unknown 0 350mg Tablet Apr 06, 2009 Jul 09, 2009 Active Take 1 tablet(s) by mouth tid BusPIRone HCl [facility] [address]-74 15 MG Orally Twice a day for 1 week and the 1 tablet twice a day Active 1/2 half tablet Simvastatin [facility] [address]-35 20 mg by mouth at bedtime Active 1 tablet ProAir HFA [facility] [address]-11 108 (90 Base) MCG/ACT Inhalation q 4-6 hr prn wheezing/SOB/cough Active 1 - 2 puffs Muir [facility] [address]-94 10-325 MG by mouth every 6 hrs prn November 22, 2015 Active 1 tablet Atenolol [facility] [address]-92 50 mg by mouth qam and 1/2 po qpm Active 1 tablet Hydrochlorothiazide [facility] [address]-07 25 MG Orally Once a day in the morning Active 1 tablet Tramadol HCl [facility] [address]-16 50 mg Orally every 6 hrs prn pain November 22, 2015 Active 1 tablet [place] Unknown 0 10mg/325mg Tablet May 03, 2009 Jun 05, 2009 Active Take 1 tablet(s) by mouth q6h prn Amitriptyline HCl [facility] [address]-82 25 MG by mouth at bedtime Active 1 to 2 tablet(s) Albuterol Sulfate [facility] [address]-14 (2.5 MG/3ML) 0.083% Inhalation by nebulizer qid as directed Active 1 vial(s) Singulair [facility] [address]-29 10 mg Orally Once a day December 07, 2015 Active 1 tablet in the evening [place] Thyroid [facility] [address]-02 15 MG Orally Once a day May 30, 2015 Active 1 tablet on an empty stomach Ativan [facility] [address]-09 1 MG by mouth three times a day (tid) as needed (prn) Active 1/2 to 1 tablet Citalopram Hydrobromide [facility] [address]-13 40 mg by mouth daily Active 1 tablet Social History Social History Element Qualifiers Date Reported Supplements . Do you use supplements Yes Multivitamin December 07, 2015 Tobacco Use: . Are you a: never smoker December 07, 2015 Caffeine intake? . Status: Yes, What type: Coffee 1-3 cups per day December 07, 2015 Do you drink alcohol? . Status: No December 07, 2015 Vital Signs Date/Time: December 07, 2015 Weight 198 lbs Height 63 in Temperature 98.0 F Cardiac Monitoring Heart Rate 80 /min Immunizations Vaccine Administration Date Inj. Dexamethasone Sod Phos 1mg December 07, 2015 Summary Purpose eClinicalWorks Submission
--- OUTSIDE RECORDS SUMMARY | 2019-02-26 01:32 | XMS REPORT ---
Author Author Zeny Page [facility] eClinicalWorks Address Unknown Phone Unavailable Care Team Providers Care Regional Transportation Manager Name Role Phone Zeny Page Unavailable Encounters Encounter Location Date Medication Refil Juventino Be MD [facility] December 07, 2015 Medicine Refills Juventino Be MD [facility] Apr 10, 2016 Medicine Refills Juventino Be MD [facility] May 08, 2016 Medication Refil Juventino Be MD [facility] Mar 12, 2016 Soma prescription Juventino Be MD [facility] December 09, 2015 Clinical Advice During Business Hours Juventino Be MD [facility] January 07, 2016 Medicine Refills Juventino Be MD [facility] February 07, 2016 Medicine Refills Juventino Be MD [facility] Aug 10, 2016 Medicine Refills Juventino Be MD [facility] Jul 10, 2016 Medication Refil Juventino Be MD [facility] Jun 11, 2016 Problems Problem Type Condition ICD-9 Code [...] abnormal serum enzyme levels 790.5 Active Problem Heartburn 787.1 Active Problem Elevated [...] anxiety states 300.09 December 04, 2008 Active Social History Social History Element Qualifiers Date Reported Supplements . Do you use supplements Yes Multivitamin Jun 11, 2016 Tobacco Use: . Are you a: never smoker Jun 11, 2016 Caffeine intake? . Status: No Jun 11, 2016 Do you drink alcohol? . Status: No Jun 11, 2016 Summary Purpose eClinicalWorks Submission
--- OUTSIDE RECORDS SUMMARY | 2019-02-26 01:32 | XMS REPORT ---
Author Author Zeny Page [facility] eClinicalWorks Address Unknown Phone Unavailable Care Team Providers Care Automatic Corn Grinder Operator Name Role Phone Zeny Page Unavailable Encounters Encounter Location Date Medication Refil Juventino Be MD [facility] December 07, 2015 Medicine Refills Juventino Be MD [facility] Apr 10, 2016 Medicine Refills Juventino Be MD [facility] May 08, 2016 Medication Refil Juventino Be MD [facility] Mar 12, 2016 Soma prescription Juventino Be MD [facility] December 09, 2015 Medicine Refills Juventino Be MD [facility] Aug 10, 2016 Clinical Advice During Business Hours Juventino Be MD [facility] January 07, 2016 Re:RE:Medicine Refills Juventino Be MD [facility] Aug 12, 2016 Medicine Refills Juventino Be MD [facility] February 07, 2016 Medicine Refills Juventino Be MD [facility] Aug 10, 2016 Medicine Refills Juventino Be MD [facility] Jul 10, 2016 Medication Refil Juventino Be MD [facility] Jun 11, 2016 Problems Problem Type Condition [...] 09, 2013 Active Problem Cough 786.2 Active Assessment Low back pain M54.5 Active Assessment Anxiety F41.9 Active Assessment Cervical stenosis of spine M48.02 Active Assessment Other chronic pain G89.29 Active Problem Abnormal blood chemistry 790.6 Active Assessment Fibromyalgia M79.7 Active Assessment Lumbar stenosis M48.06 Active Problem Spinal stenosis in cervical region [...] Allergic reaction 995.3 November 22, 2008 Active Medications Medication Code System Code Instructions Start Date End Date Status Dosage Ativan MEDISPAN [address]-88 1 MG by mouth three times a [...]
--- OUTSIDE RECORDS SUMMARY | 2019-02-26 01:32 | XMS REPORT ---
Author Author Zeny Page [facility] eClinicalWorks Address Unknown Phone Unavailable Care Team Providers Care Press Secretary Name Role Phone Zeny Page Unavailable Allergies, Adverse Reactions, Alerts Substance Reaction Event Type Ibuprofen Info Not Available Drug Allergy Diflunisal Info Not Available Drug Allergy Bystolic Info Not Available Drug Allergy Encounters Encounter Location Date Medication Refil Juventino Be MD [facility] December 07, 2015 Medicine Refills Juventino Be MD [facility] Apr 10, 2016 Medicine Refills Juventino Be MD [facility] May 08, 2016 Medication Refil Juventino Be MD [facility] Mar 12, 2016 Soma prescription Juventino Be MD [facility] December 09, 2015 Clinical Advice During Business Hours Juventino Be MD [facility] January 07, 2016 Medicine Refills Juventino Be MD [facility] February 07, 2016 Medicine Refills Juventino Be MD [facility] Jul 10, 2016 Medication Refil Juventino Be MD [facility] Jun 11, 2016 Problems Problem Type Condition [...] Problem Iron deficiency anemia 280.9 Active Assessment Fibromyalgia M79.7 Active Problem B12 deficiency 266.2 Active Problem Vitamin D deficiency 268.9 Active Problem Neoplasm of uncertain behavior of skin 238.2 Active Problem Pneumonia due to Staphylococcus 482.40 Active Problem Blackout 780.2 Active Assessment Generalized pruritus L29.9 Active Problem Dizziness 780.4 Active Assessment Mild intermittent asthma without complication J45.20 Active Problem Anemia 285.9 Active Assessment B12 deficiency E53.8 Active Problem Methicillin resistant Staphylococcus aureus infection 041.12 Active Assessment Pedal edema R60.0 Active Problem Mixed hyperlipidemia 272.2 Active Assessment Sinus tachycardia R00.0 Active Problem Other specified cardiac dysrhythmias 427.89 Active Assessment Insomnia G47.00 Active Problem Extrinsic [...] Problem Abnormal blood chemistry 790.6 Active Assessment Mixed hyperlipidemia E78.2 Active Problem Nonspecific abnormal serum enzyme levels 790.5 Active Assessment Finger pain, right M79.644 Active Problem Heartburn 787.1 Active Assessment Seasonal allergies J30.2 Active Assessment Vitamin D deficiency E55.9 Active Assessment Low back pain M54.5 Active Assessment Hypothyroidism E03.9 Active Problem Elevated blood pressure reading 796.2 Active Assessment Depression F32.9 Active Assessment Anxiety F41.9 Active Problem Headache 784.0 Active Problem Voice [...] Date End Date Status Dosage Albuterol Sulfate [facility] [address]-61 (2.5 MG/3ML) 0.083% Inhalation by nebulizer qid as directed Active 1 vial(s) ProAir HFA [facility] [address]-93 108 (90 Base) MCG/ACT Inhalation q 4-6 hr prn wheezing/SOB/cough Active 1 - 2 puffs Vitamin D2 [facility] 470[address]441 50,000 by mouth once a week Active 1 capsule by mouth once a week Syringe Unknown 0 3cc syringe with 23g needle, 1" Jul 16, 2012 Active IM injection of Vit B12, once per week Citalopram Hydrobromide [facility] [address]-34 40 mg by mouth daily Inactive 1 tablet BuPROPion HCl (XL) [facility] [address]-40 150 MG Orally Once a day x 4 days Jun 11, 2016 Active 1 tablet in the morning BuPROPion HCl (XL) [facility] [address]-00 300 MG Orally Once a day Jun 11, 2016 Active 1 tablet in the morning Ambien CR [facility] [address]-17 6.25 MG Orally Once a day Active 1 tablet at bedtime as needed Simvastatin [facility] [address]-68 20 mg by mouth at bedtime Active 1 tablet [place] [facility] [address]-91 10-325 MG by mouth every 6 hrs prn Active 1 tablet HydrOXYzine HCl [facility] [address]-58 10 MG Orally as directed Jun 11, 2016 Active 1-3 tablets tid prn itching ProAir HFA [facility] [address]-86 108 (90 Base) MCG/ACT Inhalation every 4 hrs Jun 11, 2016 Active 1-2 puffs as needed Citalopram Hydrobromide [facility] [address]-24 20 MG Orally Once a day Jun 11, 2016 Active 1 tablet [place] Thyroid [facility] [address]-62 15 MG Orally Once a day May 30, 2015 Active 1 tablet on an empty stomach Amitriptyline HCl [facility] [address]-35 25 MG by mouth at bedtime Active 1 to 2 tablet(s) Atenolol [facility] [address]-01 50 mg by mouth qam and 1/2 po qpm Active 1 tablet Ativan [facility] [address]-58 1 MG by mouth three times a day (tid) as needed (prn) Active 1/2 to 1 tablet [place] Thyroid [facility] [address]-76 60 MG Orally Once a day Active 1 tablet Cyanocobalamin [facility] [address]-88 1000 MCG/ML intramuscularly once a week as directed Active 1 ml Singulair [facility] [address]-07 10 mg Orally Once a day Active 1 tablet in the evening HydrOXYzine HCl [facility] [address]-23 10 mg Orally three times a day (tid) prn itching Jun 01, 2015 Active 1 tablet Micro-K [facility] [address]-05 10 MEQ Orally once a day Sep 09, 2016 Active 1 capsule Soma Unknown 0 350mg Tablet Active Take 1 tablet(s) by mouth tid Albuterol Sulfate [facility] [address]-03 (2.5 MG/3ML) 0.083% Inhalation Three times a day prn Jun 11, 2016 Active 3 ml Hydrochlorothiazide [facility] [address]-89 25 MG Orally Once a day in the morning Active 1 tablet Tramadol HCl [facility] [address]-09 50 mg Orally every 6 hrs prn pain Active 1 tablet Social History Social History Element Qualifiers Date Reported Supplements . Do you use supplements Yes Multivitamin Jun 11, 2016 Tobacco Use: . Are you a: never smoker Jun 11, 2016 Caffeine intake? . Status: No Jun 11, 2016 Do you drink alcohol? . Status: No Jun 11, 2016 Vital Signs Date/Time: Jun 11, 2016 Weight 199 lbs Height 63 in Temperature 99.3 F Cardiac Monitoring Heart Rate 79 /min Immunizations Vaccine Administration Date FLUVIRIN - Influenza (split) Jun 11, 2016 Triamcinolone Jun 11, 2016 Summary Purpose eClinicalWorks Submission
--- OUTSIDE RECORDS SUMMARY | 2019-02-26 01:32 | XMS REPORT ---
Author Author Zeny Page [facility] eClinicalWorks Address Unknown Phone Unavailable Care Team Providers Care Cash Specialist Name Role Phone Zeny Page Unavailable Encounters Encounter Location Date Medication Refil Juventino Be MD [facility] December 07, 2015 Medicine Refills Juventino Be MD [facility] Apr 10, 2016 Medicine Refills Juventino Be MD [facility] May 08, 2016 Medication Refil Juventino Be MD [facility] Mar 12, 2016 Soma prescription Juventino Be MD [facility] December 09, 2015 Clinical Advice During Business Hours Juventino Be MD [facility] January 07, 2016 Medicine Refills Juventino Be MD [facility] February 07, 2016 Medicine Refills Juventino Be MD [facility] Aug 10, 2016 Medicine Refills Juventino Be MD [facility] Jul 10, 2016 Medication Refil Juventino Be MD [facility] Jun 11, 2016 Unknown Juventino Be MD [facility] Aug 13, 2016 Medicine Refills Juventino Be MD [facility] Aug 10, 2016 Re:RE:Medicine Refills Juventino Be MD [facility] Aug 12, 2016 Problems Problem Type Condition ICD-9 Code Onset Dates Condition Status Problem Dysfunction of Eustachian tube 381.81 Active Problem Labyrinthitis 386.30 Active Problem Contact blepharoconjunctivitis 372.22 Active Problem Infective otitis externa 380.10 Active Problem 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 Active Problem 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 Active Problem Other anxiety states 300.09 Active Problem Iron deficiency anemia 280.9 Active Problem Neoplasm of uncertain behavior of skin 238.2 Active Problem Vitamin D deficiency 268.9 Active Problem B12 deficiency 266.2 Active Problem Pneumonia due to Staphylococcus 482.40 Active Problem Anemia 285.9 Active Problem Dizziness 780.4 Active Problem Extrinsic asthma with exacerbation 493.02 Active Problem Methicillin resistant Staphylococcus aureus infection 041.12 Active Problem Blackout 780.2 Active Problem Other specified cardiac dysrhythmias 427.89 Active Problem 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 Active Problem Acute hip pain 719.45 Active Problem Mixed hyperlipidemia 272.2 Active Problem Dyschromia 709.00 Active Problem Abnormal blood chemistry 790.6 Active Problem Solitary pulmonary nodule 793.11 Active Problem Allergic state 995.3 Active Problem Heartburn 787.1 Mar 11, 2007 Active Problem Elevated blood pressure reading 796.2 Active Problem Strain of rotator cuff 840.4 Active Problem Dysfunction of Eustachian tube 381.81 January 14, 2012 Active Problem Heartburn 787.1 Active Problem Laboratory examination V72.6 Apr 18, 2011 Active Problem Nausea alone 787.02 Active Problem Special screening for malignant neoplasms, colon V76.51 Aug 09, 2013 Active Problem Cough 786.2 Active Problem Bronchitis, acute 466.0 Aug 09, 2013 Active Problem Enlarged lymph nodes 785.6 Active Assessment Hypothyroidism E03.9 Active Problem Screening for breast cancer (Unspecified breast screening) V76.10 Aug 09, 2013 Active Assessment Mixed hyperlipidemia E78.2 Active Assessment Vitamin D deficiency E55.9 Active Problem Nonspecific abnormal serum enzyme levels 790.5 Active Assessment Hyperglycemia R73.9 Active Problem Displacement of lumbar intervertebral disc 722.10 Active Problem Spinal stenosis in cervical region 723.0 Active Problem Cervicalgia 723.1 Active Problem Headache 784.0 Active Problem Voice disturbance 784.40 Active Problem Unspecified vitamin D deficiency 268.9 Aug 30, 2010 Active Problem Acute cystitis 595.0 Active Problem Hyperglycemia (Other abnormal blood chemistry) 790.6 Aug 30, 2010 Active Problem Earache, otogenic 388.71 Active Problem Other thalassemia 282.49 Aug 30, 2010 Active Problem Cellulitis and abscess of face 682.0 Active Problem Other specified menopausal and postmenopausal disorder 627.8 Active Problem Anemia, iron deficiency 280.9 Sep 24, 2010 Active Problem Dermatitis 692.9 Active Problem Other B-complex deficiencies 266.2 Sep 24, 2010 Active Problem Local infection of skin and subcutaneous tissue 686.9 Active Problem 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 Sep 20, 2010 Active Problem Unspecified anemia 285.9 Aug 30, 2010 Active Problem Acute cystitis 595.0 February 19, 2011 Active Problem Mixed hyperlipidemia 272.2 February 19, 2011 Active Problem Dysthymia 300.4 Aug 16, 2010 Active Problem Nonspecific (abnormal) findings on radiological and other examination of lung field 793.1 February 17, 2008 Active Problem Reflux esophagitis 530.11 February 17, 2008 Active Problem Elevated blood pressure reading without diagnosis of hypertension 796.2 January 19, 2008 Active Problem Rhomboid muscle pain 729.1 January 19, 2008 Active Problem Sinus bradycardia 427.89 Jun 04, 2010 Active Problem Acute shoulder pain 719.41 January 19, 2008 Active Problem Familial hyperlipoproteinemia, 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 Aug 16, 2010 Active Problem Essential hypertension, benign 401.1 January 19, 2008 Active Problem Extrinsic asthma with status asthmaticus 493.01 May 17, 2010 Active Problem Rotator cuff (capsule) sprain and strain 840.4 December 28, 2007 Active Problem Other nonspecific abnormal serum enzyme levels 790.5 May 22, 2010 Active Problem Lumbar pain 724.2 December 28, 2007 Active Problem Chronic pain syndrome 338.4 January 07, 2010 Active Problem Methicillin resistant Staphylococcus aureus 041.12 May 17, 2010 Active Problem Major depressive disorder, single episode, moderate 296.22 January 02, 2010 Active Problem Apudoma of skin 238.2 January 02, 2010 Active Problem Cough 786.2 December 05, 2009 Active Problem Extrinsic asthma, with (acute) exacerbation 493.02 December 05, 2009 Active Problem Anxiety as acute reaction to exceptional stress 308.0 Aug 30, 2007 Active Problem Gastro-esophageal reflux 530.81 Aug 24, 2007 Active Problem Syncope and collapse 780.2 Aug 30, 2007 Active Problem Spinal stenosis in cervical region 723.0 Jun 17, 2007 Active Problem Acute maxillary sinusitis 461.0 May 03, 2007 Active Problem Swelling, mass, or lump in head and neck 784.2 Aug 24, 2007 Active Problem Enlargement of lymph nodes 785.6 Jun 17, 2007 Active Problem Cervical dystonia 333.83 May 07, 2007 Active Problem Other specified acquired hypothyroidism 244.8 May 03, 2007 Active Problem Acute frontal sinusitis 461.1 May 03, 2007 Active Problem Cervical pain 723.1 Mar 11, 2007 Active Problem Transient insomnia (Transient disorder of initiating or maintaining sleep) 307.41 Mar 11, 2007 Active Problem 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 Mar 11, 2007 Active Problem GERARDO (generalized anxiety disorder) 300.02 Mar 11, 2007 Active Problem Cellulitis of face 682.0 October 23, 2009 Active Problem Dyschromia, unspecified 709.00 October 05, 2009 Active Problem Annual Physical (Routine general medical examination at health care facility) V70.0 October 05, 2009 Active Problem Postmenopausal related mood disorder 627.8 October 05, 2009 Active Problem Acute URI 465.9 December 05, 2009 Active Problem Headache 784.0 October 23, 2009 Active Problem Pneumonia due to Staphylococcus, unspecified 482.40 October 23, 2009 Active Problem Other staphylococcus infection in conditions classified elsewhere and of unspecified site 041.19 October 23, 2009 Active Problem Allergic rhinitis due to pollen 477.0 October 05, 2009 Active Problem Otogenic pain 388.71 Sep 21, 2009 Active Problem Esophageal reflux 530.81 Active Problem Myalgia and myositis 729.1 Active Problem Otitis externa of right ear 380.10 Sep 21, 2009 Active Problem 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 Problem Other anxiety states 300.09 December 04, 2008 Active Problem Contact blepharoconjunctivitis 372.22 December 04, 2008 Active Problem Low back pain 724.2 Active Problem Toe infection 686.9 December 18, 2008 Active Problem Anxiety and depression 300.4 Active Problem Eczema 692.9 December 18, 2008 Active Problem Light headedness 780.4 January 09, 2009 Active Problem Nausea alone 787.02 December 28, 2008 Active Problem Arthralgia of hip or thigh 719.45 February 21, 2009 Active Problem Unspecified labyrinthitis 386.30 January 09, 2009 Active Problem Other chronic pain G89.29 Active Problem Fibromyalgia M79.7 Active Problem Vitamin D deficiency E55.9 Active Problem Hypothyroidism 244.9 Active Problem Anxiety, generalized 300.02 Active Problem Seasonal allergic rhinitis due to pollen J30.1 Active Problem Allergic reaction 995.3 November 22, 2008 Active Problem Mixed hyperlipidemia E78.2 Active Problem Acquired hypothyroidism 244 Jun 22, 2008 Active Problem 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 November 16, 2008 Active Medications Medication Code System Code Instructions Start Date End Date Status Dosage [place] Thyroid MEDISPAN [address]-90 90 MG Orally Once a day Aug 13, 2016 Active 1 tablet [place] Thyroid MEDISPAN [address]-29 60 MG Orally Once a day Inactive 1 tablet [place] Thyroid MEDISPAN [address]-56 15 MG Orally Once a day May 30, 2015 Inactive 1 tablet on an empty stomach Social History Social History Element Qualifiers Date Reported Supplements . Do you use supplements Yes Multivitamin Jun 11, 2016 Tobacco Use: . Are you a: never smoker Jun 11, 2016 Caffeine intake? . Status: No Jun 11, 2016 Do you drink alcohol? . Status: No Jun 11, 2016 Summary Purpose eClinicalWorks Submission
--- OUTSIDE RECORDS SUMMARY | 2019-02-26 01:32 | XMS REPORT ---
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 Obesity (BMI 35.0-39.9 without comorbidity) E66.9 Active Problem Contact blepharoconjunctivitis 372.22 Active Problem [...] Instructions Start Date End Date Status Dosage Citalopram Hydrobromide [facility] [address]-87 20 MG Orally Once a day Active 1 tablet Tramadol HCl [facility] [address]-37 50 mg Orally every 6 hrs prn pain Active 1 tablet [place] [facility] [address]-78 10-325 MG by mouth every 6 hrs prn Active 1 tablet Albuterol Sulfate [facility] [address]-50 (2.5 MG/3ML) 0.083% Inhalation Three times a day prn Active 3 ml Micro-K [facility] [address]-73 10 MEQ Orally once a day Active 1 capsule Hydrochlorothiazide [facility] [address]-45 25 MG Orally Once a day in the morning Active 1 tablet Singulair [facility] [address]-49 10 mg Orally Once a day Active 1 tablet in the evening Soma ND 0 350mg Tablet Active Take 1 tablet(s) by mouth tid Vitamin D2 [facility] 07104-43067 50,000 by mouth once a week Active 1 capsule by mouth once a week ProAir HFA [facility] [address]-10 108 (90 Base) MCG/ACT Inhalation every 4 hrs Active 1-2 puffs as needed Syringe [facility] 0 3cc syringe with 23g needle, 1" Active IM injection of Vit B12, once per week Cyanocobalamin [facility] [address]-65 1000 MCG/ML intramuscularly once a week as directed Active 1 ml Simvastatin [facility] [address]-76 20 mg by mouth at bedtime Active 1 tablet Ativan [facility] [address]-82 1 MG by mouth three times a day (tid) as needed (prn) Active 1/2 to 1 tablet BuPROPion HCl (XL) [facility] [address]-27 300 MG Orally Once a day Active 1 tablet in the morning [place] Thyroid [facility] [address]-51 90 MG Orally Once a day Aug 13, 2016 Active 1 tablet Ambien CR [facility] [address]-84 6.25 MG Orally Once a day Active 1 tablet at bedtime as needed HydrOXYzine HCl [facility] [address]-44 10 MG Orally as directed Active 1-3 tablets tid prn itching Atenolol [facility] [address]-77 50 mg by mouth qam and 1/2 po qpm Active 1 tablet Xyzal [facility] [address]-17 5 MG Orally Once a day Sep 26, 2016 December 25, 2016 Active 1 tablet in the evening Amitriptyline HCl [facility] [address]-28 25 MG by mouth at bedtime Active 1 to 2 tablet(s) Vital Signs Date/Time: Sep 26, 2016 Weight 202 lbs Height 63 in Temperature 97.5 F Cardiac Monitoring Heart Rate 72 /min BMI 35.78 Index Results No Known Results Summary Purpose eClinicalWorks Submission
--- OUTSIDE RECORDS SUMMARY | 2019-02-26 01:32 | XMS REPORT ---
Author Author Zeny Page [facility] eClinicalWorks Address Unknown Phone Unavailable Care Team Providers Care Compensation Administrator Name Role Phone Zeny Page CP Unavailable [...] Instructions Start Date End Date [facility] D[facility] [address] 1 MG by mouth three times a day (tid) as needed (prn) Active 1/2 to 1 tablet Results No Known Results Summary Purpose eClinicalWorks Submission
--- OUTSIDE RECORDS SUMMARY | 2019-02-26 01:33 | XMS REPORT ---
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
== END 2019-02-26 01:38 | disposition home or self-care (01) ==
LOC: ER 01:22
DX: K08.89 Other specified disorders of teeth and supporting structures (principal); I10 Essential (primary) hypertension; J45.909 Unspecified asthma, uncomplicated; E03.9 Hypothyroidism, unspecified; F41.9 Anxiety disorder, unspecified
CPT/HCPCS: 99282